=== PATIENT | female | born 1955 | race Caucasian/White ===

== ENCOUNTER 2017-02-14 08:16 | Inpatient (IN) | payer OTHER, MEDICAID ==
--- NOTE | 2017-02-14 08:29 | EDPHY ---
H & P Time Seen by Provider: 02/14/17 08:17 HPI/ROS: CHIEF COMPLAINT: Left calf pain HISTORY OF PRESENT ILLNESS: 61-year-old female, history of schizophrenia, History of osteoarthritis, arrives via ambulance complaining of left knee pain for the past several months, worse in the past 4 days worse with ambulation and movement. She was walking to [employer] this morning and the pain was severe that she attempted to sit herself down however fell onto this left pretibial and knee. She is now unable to bear weight. Denies proximal injury such as hip injury. No head injury. No hip pain or injury. No foot or ankle pain or injury. States that she is unable to bear weight. Patient was by herself. She denies: Discoloration, antecedent trauma , chest pain, dyspnea, headache, fever, chills PRIMARY CARE PROVIDER: Dr. Mine Vera REVIEW OF SYSTEMS: A ten point review of systems was performed and is negative with the exception of the items mentioned in the HPI PAST MEDICAL & SURGICAL HISTORY: Schizophrenia. SOCIAL HISTORY: lives by herself PHYSICAL EXAM (Prior to examination, patient consented to physical exam, hands were washed and my usual and customary physical exam procedures followed) 1) GENERAL: obese, , alert and oriented. Appears to be in no acute distress. 2) HEAD: Normocephalic, atraumatic 3) HEENT: Pupils equal, round, reactive to light bilaterally. Sclera anicteric. Nasopharynx, oropharynx, clear, no lesions. Ears bilaterally with normal tympanic membranes. 4) NECK: Full range of motion, no meningeal signs. 5) LUNGS: Clear auscultation bilaterally, no wheezes, no rhonchi, no retractions. 6) HEART: Regular rate and rhythm, no murmur, no heave, no gallop. 7) ABDOMEN: No guarding, no rebound, no focal tenderness, negative McBurney's, negative Nicholas's, negative Rovsing's, negative peritoneal sign, 8) MUSCULOSKELETAL: Left lower extremity: Dopplerable only dorsalis pedis pulse. Brisk capillary refill and normal color normal temperature. Tender to palpation left pretibial region proximally, reproducible pain with range of motion. Soft compartments. Left hip, femur, foot and ankle are nontender. 9) BACK: No CVA tenderness, no midline vertebral tenderness, no fluctuance, no step-off, no obvious trauma, no visual or palpable abnormality. 10) SKIN: No rash, no petechiae. 11) Psychiatric: Patient is oriented X 3, there is no agitation. DIFFERENTIAL DIAGNOSIS: in no particular include but limited to arterial occlusion, fracture, sprain, dislocation, compartment syndrome - Medical/Surgical History Hx Asthma: Yes Hx Chronic Respiratory Disease: Yes Hx Diabetes: No Hx Cardiac Disease: No Hx Renal Disease: No Hx Cirrhosis: No Hx Alcoholism: No Hx HIV/AIDS: No Hx Splenectomy or Spleen Trauma: No Other PMH: pmh- asthma, emphysema, schizophrenia. psh- tubal ligation - Social History Smoking Status: Former smoker Constitutional: Initial Vital Signs Temperature (C) 36.8 C 02/14/17 08:26 Heart Rate 89 02/14/17 08:26 Respiratory Rate 16 02/14/17 08:26 Blood Pressure 161/89 H 02/14/17 08:26 O2 Sat (%) 90 L 02/14/17 08:26 O2 Delivery Mode Room Air Allergies/Adverse Reactions: diphenhydramine HCl [From Benadryl] Allergy (Unknown, Verified 01/08/13 10:36) Penicillins Allergy (Verified 01/08/13 10:36) Home Medications: Medication Instructions Recorded Alendronate Sodium [Fosamax 35 MG] 35 mg PO FR 02/14/17 Benztropine Mesylate [Cogentin] 02/14/17 Calcium Carbonate [Tums 500MG (*)] 500 mg PO DAILY 02/14/17 Cholecalciferol Vit D3 [Vitamin D3 1,000 units PO DAILY 02/14/17 (*)] Divalproex Sodium [Depakote] 02/14/17 Docusate Sodium [Colace] 100 mg PO DAILY 02/14/17 Flovent 110 MCG Hfa MDI (*) 02/14/17 Herbals/Supplements -Info Only 1 ea PO DAILY 02/14/17 Ipratropium/Albuterol [Combivent 02/14/17 Respimat Inhal [place](*)] QUEtiapine FUMARATE [Seroquel 100 02/14/17 mg (*)] QUEtiapine FUMARATE [Seroquel 200 02/14/17 mg (*)] QUEtiapine FUMARATE [Seroquel 02/14/17 300mg (*)] Xopenex Hfa Inhaler (*) 02/14/17 fluPHENAZine HCL [Prolixin 10 MG 02/14/17 (*)] rOPINIRole HCL [Ropinirole HCl] 02/14/17 Medical Decision Making - Diagnostics Imaging Results: Imaging Impressions Knee X-Ray 02/14/17 08:30 Impression: Mildly displaced comminuted fracture of the proximal tibial metadiaphysis. Tricompartment degenerative change of the left knee. Suprapatellar joint effusion. Tibia/Fibula X-Ray 02/14/17 08:30 Impression: Mildly displaced comminuted transverse fracture through the proximal metadiaphysis of the left tibia. Chest X-Ray 02/14/17 09:04 IMPRESSION: No evidence for acute cardiopulmonary abnormality. Aorta w/Runoff CTA 02/14/17 09:33 Impression: 1. No significant atherosclerotic change or stenosis of the abdominal aorta, pelvic vasculature, or lower extremity vasculature. 2. Hepatic cyst. Renal cortical cyst inferior pole, right kidney. Degenerative change of the lumbar spine. 3. Mildly comminuted displaced fracture of the left proximal tibial metadiaphysis. Results called and discussed with Marija Villa on 02/14/2017 at 11:19 a.m. Procedures: Procedure: Fracture treatment. The patient had x-rays taken and I confirmed that the patient had a fractured proximal tibia. A long-leg posterior Ortho Glass splint was applied by ER radiography technician. After application of the splint I returned and re-examined the patient. The splint was adequately immobilizing the joint and distal to the splint the patient's circulation and sensation were intact. Patient shows no signs of compartment syndrome at this time ED Course/Re-evaluation: 9:15 a.m.: Discussed case with secondary supervising physician Dr. Jace Rodriguez in the ER was also examined the patient. 9:17 a.m.: Phone consultation with orthopedics Dr. Yassine Chery who will consult 9:30 a.m.: Dr. Chery has examined the patient in the ER will more than likely perform surgery tomorrow, requests admission to hospitalist. Phone consultation with hospitalist admit to Dr. Hensley. Serial examinations have been performed on patient remains neurovascularly intact with palpable only pulses. Plan will be splinting and CT angio follow through. - Data Points Laboratory Results: Laboratory Results 02/14/17 09:02/14/17 09:02/14/17 02/14/17 02/14/17 09: 09: 09:17 WBC 9.92 10^3/uL H 10^3/uL (3.80-9.50) RBC 4.62 10^6/uL 10^6/uL (4.18-5.33) Hgb 12.8 g/dL g/dL (12.6-16.3) Hct 37.1 % L % (38.0-47.0) MCV 80.3 fL L fL (81.5-99.8) MCH 27.7 pg L pg (27.9-34.1) MCHC 34.5 g/dL g/dL (32.4-36.7) RDW 16.4 % H % (11.5-15.2) Plt Count 310 10^3/uL 10^3/uL (150-400) MPV 9.1 fL fL (8.7-11.7) Neut % (Auto) 69.0 % % (39.3-74.2) Lymph % (Auto) 17.1 % % (15.0-45.0) [place] % (Auto) 12.1 % % (4.5-13.0) Eos % (Auto) 1.0 % % (0.6-7.6) Baso % (Auto) 0.4 % % (0.3-1.7) Nucleat RBC Rel Count 0.0 % % (0.0-0.2) Absolute Neuts (auto) 6.84 10^3/uL H 10^3/uL (1.70-6.50) Absolute Lymphs (auto) 1.70 10^3/uL 10^3/uL (1.00-3.00) Absolute Monos (auto) 1.20 10^3/uL H 10^3/uL (0.30-0.80) Absolute Eos (auto) 0.10 10^3/uL 10^3/uL (0.03-0.40) Absolute Basos (auto) 0.04 10^3/uL 10^3/uL (0.02-0.10) Absolute Nucleated RBC 0.00 10^3/uL 10^3/uL (0-0.01) Immature Gran % 0.4 % % (0.0-1.1) Immature Gran # 0.04 10^3/uL 10^3/uL (0.00-0.10) PT 13.5 SEC SEC (12.0-15.0) INR 1.04 (0.83-1.16) APTT 29.0 SEC SEC (23.0-38.0) Sodium 131 mEq/L L mEq/L (134-144) Potassium 4.1 mEq/L mEq/L (3.5-5.2) Chloride 94 mEq/L L mEq/L (97-110) Carbon Dioxide 24 mEq/l mEq/l (22-31) Anion Gap 13 mEq/L mEq/L (8-16) BUN 9 mg/dL mg/dL (7-23) Creatinine 0.4 mg/dL L mg/dL (0.6-1.0) Estimated GFR > 60 Glucose 107 mg/dL H mg/dL (70-100) Calcium 9.5 mg/dL mg/dL (8.5-10.4) Medications Given: Discontinued Medications Fentanyl (Sublimaze) 100 mcg IVP EDNOW ONE Stop: 02/14/17 09:53 Last Admin: 02/14/17 10:04 Dose: 100 mcg Ketorolac Tromethamine (Toradol) 30 mg IVP EDNOW ONE Stop: 02/14/17 09:53 Last Admin: 02/14/17 10:03 Dose: 30 mg Departure - Departure Disposition: [facility] Inpatient Acute Clinical Impression: Closed left tibial fracture Qualifiers: Encounter type: initial encounter Tibia location: proximal Fracture morphology : other fracture Qualified Code(s): S82.192A - Other fracture of upper end of left tibia, initial encounter for closed fracture Condition: Good
[2017-02-14 09:24] LABS: % IMMATURE GRANULYOCYTES 0.4 % (0.0-1.1); ABSOLUTE IMMATURE GRANULOCYTES 0.04 10^3/uL (0.00-0.10); ADD DIFF? NO; ADD MORPH? NO; ADD SCAN? NO; ATYPICAL LYMPHOCYTE FLAG 0 (0-99); FRAGMENT RBC FLAG 0 (0-99); HEMATOCRIT 37.1 % (38.0-47.0); HEMOGLOBIN 12.8 g/dL (12.6-16.3); LEFT SHIFT FLG 0 (0-99); LIPEMIA HEMOLYSIS FLAG 90 (0-99); MEAN CELL HEMOGLOBIN 27.7 pg (27.9-34.1); MEAN CELL HEMOGLOBIN CONCENTR. 34.5 g/dL (32.4-36.7); MEAN CELL VOLUME 80.3 fL (81.5-99.8); MEAN PLATELET VOLUME 9.1 fL (8.7-11.7); PLATELET CLUMPS FLAG 0 (0-99); PLATELET COUNT 310 10^3/uL (150-400); RED BLOOD CELL COUNT 4.62 10^6/uL (4.18-5.33); RED CELL DISTRIBUTION WIDTH 16.4 % (11.5-15.2)
[2017-02-14 09:34] LABS: INR 1.04 (0.83-1.16); PROTIME(PATIENT) 13.5 SEC (12.0-15.0)
[2017-02-14 09:38] LABS: ANION GAP 13 mEq/L (8-16); CALCIUM 9.5 mg/dL (8.5-10.4); CARBON DIOXIDE 24 mEq/l (22-31); CHLORIDE 94 mEq/L (97-110); CREATININE 0.4 mg/dL (0.6-1.0); GLOMERULAR FILTRATION RATE > 60; GLUCOSE 107 mg/dL (70-100); POTASSIUM 4.1 mEq/L (3.5-5.2); SODIUM 131 mEq/L (134-144)
--- NOTE | 2017-02-14 09:38 | CPEKG ---
Heart Rate: 104 RR Interval: 577 P-R Interval: 204 QRSD Interval: 86 QT Interval: 336 QTC Interval: 442 P [place]: 56 QRS [place]: 43 T Wave [place]: -35 EKG Severity - OTHERWISE NORMAL ECG - EKG Impression: SINUS TACHYCARDIA Electronically Signed By: Reinaldo Belle 16-Feb-2017 15:33:42
[2017-02-14] MEDS ORDERED: fentaNYL 100 MCG/2 ML INJ IVP ONE (09:52)
[2017-02-14] MEDS ORDERED: KETOROLAC 30 MG/1 ML SDV IVP ONE (09:52)
[2017-02-14] MEDS ORDERED: IOPAMIDOL (ISOVUE 370) 100 ML BTL IV ONE (10:01)
[2017-02-14] MEDS ORDERED: ONDANSETRON 4 MG/2 ML VIAL IVP PRN (11:25)
[2017-02-14] MEDS ORDERED: HYDROmorphONE/DILAUDID 1 MG/ML SYR IVP PRN (11:25)
[2017-02-14] MEDS ORDERED: LORazepam 2 MG/ML INJ IVP PRN (11:25)
[2017-02-14] MEDS ORDERED: ONDANSETRON DISINTEGRATING 4 MG TAB PO PRN (11:25)
[2017-02-14] MEDS ORDERED: PROMETHAZINE HCL 25 MG/ML INJ IVP PRN (11:25)
[2017-02-14] MEDS ORDERED: ALBUTEROL 3 ML DEYVIAL IH PRN (11:29)
--- NOTE | 2017-02-14 11:51 | PDGENHP ---
History and Physical - Chief Complaint fall, left knee pain - History of Present Illness 61 yo F with PMH of COPD, schizophrenia with significant extrapyramidal sxs related to her psychiatric medications presenting after a mechanical fall with resultant left tibial fracture. She notes that she was walking a long distance to [place] when she felt as if her leg was buckling and she fell to the cement. She was unable to get up but flagged down a jogger who went for help. She had no other injuries, specifically no head or neck trauma. There was no preceding sxs before falling, no syncope, dizzyness, chest pain etc. She has had issues with falls in the past. She notes that due to her psychiatric medications she has issues with tremulousness that affects her whole body including her tongue. She has a cane but usually does not use it. History Information - Allergies/Home Medication List Allergies/Adverse Reactions: diphenhydramine HCl [From Benadryl] Allergy (Unknown, Verified 01/08/13 10:36) Penicillins Allergy (Verified 01/08/13 10:36) Home Medications: Alendronate Sodium [Fosamax 35 MG] 35 mg PO FR 02/14/17 [Last Taken Unknown] Benztropine Mesylate [Cogentin] 02/14/17 [Last Taken Unknown] Calcium Carbonate [Tums 500MG (*)] 500 mg PO DAILY 02/14/17 [Last Taken Unknown] Cholecalciferol Vit D3 [Vitamin D3 (*)] 1,000 units PO DAILY 02/14/17 [Last Taken Unknown] Divalproex Sodium [Depakote] 02/14/17 [Last Taken Unknown] Docusate Sodium [Colace] 100 mg PO DAILY 02/14/17 [Last Taken Unknown] Flovent 110 MCG Hfa MDI (*) 02/14/17 [Last Taken Unknown] Herbals/Supplements -Info Only 1 ea PO DAILY 02/14/17 [Last Taken Unknown] Ipratropium/Albuterol [Combivent Respimat Inhal [place](*)] 02/14/17 [Last Taken Unknown] QUEtiapine FUMARATE [Seroquel 100 mg (*)] 02/14/17 [Last Taken Unknown] QUEtiapine FUMARATE [Seroquel 200 mg (*)] 02/14/17 [Last Taken Unknown] QUEtiapine FUMARATE [Seroquel 300mg (*)] 02/14/17 [Last Taken Unknown] Xopenex Hfa Inhaler (*) 02/14/17 [Last Taken Unknown] fluPHENAZine HCL [Prolixin 10 MG (*)] 02/14/17 [Last Taken Unknown] rOPINIRole HCL [Ropinirole HCl] 02/14/17 [Last Taken Unknown] I have personally reviewed and updated: family history, medical history, social history, surgical history - Past Medical History asthma, COPD, psychiatric history (schizophrenia) - Surgical History Additional surgical history: tubal ligation - Family History Positive for: non-pertinent - Social History Smoking Status: Former smoker Alcohol Use: None Drug Use: None Additional social history: lives independently Review of Systems ROS: 10pt was reviewed & negative except for what was stated in HPI & below Physical Exam Temp Pulse Resp BP Pulse Ox 36.6 C 104 H 18 146/81 H 97 02/14/17 11:22 02/14/17 11:22 02/14/17 11:22 02/14/17 11:22 02/14/17 11:22 Constitutional: no apparent distress, appears nourished Eyes: PERRL Ears, Nose, Mouth, Throat: moist mucous membranes, hearing normal Cardiovascular: regular rate and rhythym, no murmur, rub, or gallop, No edema Respiratory: no respiratory distress, no rales or rhonchi, clear to auscultation Gastrointestinal: normoactive bowel sounds, soft, non-tender abdomen Genitourinary: no bladder tenderness Skin: warm, normal color Musculoskeletal: full muscle strength Neurologic: AAOx3, CN II-XII Intact, other (diffuse tremor) Psychiatric: interacting appropriately, not anxious, not encephalopathic Lab Data & Imaging Review 02/14/17 09:17 02/14/17 09:17 WBC 9.92 10^3/uL (3.80-9.50) H 02/14/17 09:17 RBC 4.62 10^6/uL (4.18-5.33) 02/14/17 09:17 Hgb 12.8 g/dL (12.6-16.3) 02/14/17 09:17 Hct 37.1 % (38.0-47.0) L 02/14/17 09:17 MCV 80.3 fL (81.5-99.8) L 02/14/17 09:17 MCH 27.7 pg (27.9-34.1) L 02/14/17 09:17 MCHC 34.5 g/dL (32.4-36.7) 02/14/17 09:17 RDW 16.4 % (11.5-15.2) H 02/14/17 09:17 Plt Count 310 10^3/uL (150-400) 02/14/17 09: MPV 9.1 fL (8.7-11.7) 02/14/17 09:17 Neut % (Auto) 69.0 % (39.3-74.2) 02/14/17 09: Lymph % (Auto) 17.1 % (15.0-45.0) 02/14/17: [place] % (Auto) 12.1 % (4.5-13.0) 02/14/17 09:17 Eos % (Auto) 1.0 % (0.6-7.6) 02/14/17: Baso % (Auto) 0.4 % (0.3-1.7) 02/14/17 09:17 Nucleat RBC Rel Count 0.0 % (0.0-0.2) 02/14/17 09:17 Absolute Neuts (auto) 6.84 10^3/uL (1.70-6.50) H 02/14/17 09:17 Absolute Lymphs (auto) 1.70 10^3/uL (1.00-3.00) 02/14/17 09:17 Absolute Monos (auto) 1.20 10^3/uL (0.30-0.80) H 02/14/17 09:17 Absolute Eos (auto) 0.10 10^3/uL (0.03-0.40) 02/14/17 09:17 Absolute Basos (auto) 0.04 10^3/uL (0.02-0.10) 02/14/17 09:17 Absolute Nucleated RBC 0.00 10^3/uL (0-0.01) 02/14/17 09:17 Immature Gran % 0.4 % (0.0-1.1) 02/14/17 09:17 Immature Gran # 0.04 10^3/uL (0.00-0.10) 02/14/17 09:17 PT 13.5 SEC (12.0-15.0) 02/14/17 09:17 INR 1.04 (0.83-1.16) 02/14/17 09:17 APTT 29.0 SEC (23.0-38.0) 02/14/17 09:17 Sodium 131 mEq/L (134-144) L 02/14/17 09:17 Potassium 4.1 mEq/L (3.5-5.2) 02/14/17 09:17 Chloride 94 mEq/L (97-110) L 02/14/17 09:17 Carbon Dioxide 24 mEq/l (22-31) 02/14/17 09:17 Anion Gap 13 mEq/L (8-16) 02/14/17 09:17 BUN 9 mg/dL (7-23) 02/14/17 09:17 Creatinine 0.4 mg/dL (0.6-1.0) L 02/14/17 09:17 Estimated GFR > 60 02/14/17 09:17 Glucose 107 mg/dL (70-100) H 02/14/17 09:17 Calcium 9.5 mg/dL (8.5-10.4) 02/14/17 09:17 Visualized and Interpreted Chest x-ray results: Yes Chest X-Ray results: normal Visualized and Interpreted imaging results: Yes Interpretation: comminuted displaced proximal tibial fracture Visualized and Interpreted EKG results: Yes EKG Interpretation: Positive for: normal sinsus rhythm, other (tachy) Assessment & Plan Assessment: 61 yo F with PMH of COPD, schizophrenia admitted s/p mechanical fall with displaced proximal tibial fracture # left displaced proximal tibial fracture: with plan for surgical intervention in am. Patient appears neurovascularly intact with pulses present, CTA aorta with runoff without significant abnormalities. # mechanical fall: patient with issues with fall in the past as well, she has what sounds like both EPS and Parkinsonian like sxs related to her psychiatric medications. Will have PT/OT evaluate, may require SNF post operatively given her baseline somewhat debilitated state # copd: with e/o acute exacerbation, will continue her usual inhalers # schizophrenia: well controlled though with many side effects from her medications as above, will continue her home regimen, she is followed by [facility] as an OP # dispo: IP status, will need > 48 hours stay for eval/mgmt of above given need for surgical intervention and inability to be safe at home Patient new to my care. Old records reviewed and summarized as above. Care plan reviewed with ER including plans for ortho consult.
[2017-02-14] MEDS: IPRATROPIUM/ALBUTEROL 4GM MDI IH SCH ×2 (17:46→21:02)
[2017-02-14] MEDS: ACETAMINOPHEN 325 MG TAB PO PRN (21:00)
[2017-02-14] MEDS: oxyCODONE IR 5 MG TAB PO PRN (21:00)
[2017-02-14] MEDS ORDERED: CLINDAMYCIN 900 MG/DEXTROSE 50 ML IV ONE (21:35)
--- NOTE | 2017-02-14 23:03 | GCON ---
[f rep st] CONSULTATION ORTHOPEDIC. DATE OF CONSULTATION: 02/14/2017 REASON FOR CONSULTATION: Left tibia fracture. HISTORY OF PRESENT ILLNESS: The patient is a 61-year-old female with a history of schizophrenia and COPD, who was walking to [employer] this morning, fell, sustained a proximal tibia fracture. She state s her knee had been hurting for several days before that and felt like it gave out. Denies any loss of consciousness. No other injuries prior. PAST MEDICAL HISTORY: Schizophrenia, COPD. PAST SURGICAL HISTORY: Tubal ligation. MEDICATIONS: Please see attached list. ALLERGIES: Penicillin. SOCIAL HISTORY: She lives alone. From her description, she has been having some increasing difficu lty caring for herself. She does not smoke, does not use alcohol. REVIEW OF SYSTEMS: No shortness of breath or chest pain. PHYSICAL EXAMINATION: VITAL SIGNS: Temperature is 36.6, pulse is 104, respiratory rate is 18, bloo d pressure is 146/81, oxygen saturation 97% on room air. GENERAL: She is alert and oriented x3. S he answers questions appropriately. HEENT: Normocephalic atraumatic. Extraocular muscles intact. NECK: Supple. There is no lymphadenopathy. No JVD. CHEST: Clear to auscultation. CARDIOVASCUL AR: Regular rate and rhythm. ABDOMEN: Soft, nontender, nondistended. Slightly obese. No hepatos plenomegaly. LEFT LOWER EXTREMITY: Compartments are soft. There is no obvious deformity. She has palpable pulses. She had a CTA today done in the ER because of that and found no occlusion of thos e pulses. She has 5/5 ankle dorsiflexion, plantar flexion, strength. IMAGING/X-RAYS: Four views of the tibia show a minimally displaced proximal tibial fracture. PLAN: Long discussion with the patient. I think the best course of action would be to try and sayda t this with an intramedullary nail. It is a proximal fracture, but I think we could get control of it with that with minimal surgical time, which I think would be of benefit to her. She is in [facility] with this plan. She has eaten this morning, so we will plan on surgery tomorrow morning mid mor bronson. Will make her n.p.o. after midnight. Risks and benefits of surgery were discussed with her. She understands these risks and wants to proceed. We will get her admitted to the medicine service today. /[id number]/MODL
[2017-02-15] MEDS: oxyCODONE IR 5 MG TAB PO PRN ×3 (03:47→17:38)
[2017-02-15] MEDS ORDERED: CLINDAMYCIN 900 MG/DEXTROSE 50 ML IV ONE (06:00)
[2017-02-15] MEDS: IPRATROPIUM/ALBUTEROL 4GM MDI IH SCH ×4 (06:29→19:48)
[2017-02-15] MEDS ORDERED: NS 1,000 ML IV SCH (08:30)
[2017-02-15] MEDS: DOCUSATE SODIUM 100 MG CAP PO SCH (09:09)
[2017-02-15] MEDS: CALCIUM CARBONATE 500 MG CHEWABLE TAB PO SCH (09:09)
[2017-02-15] MEDS: QUEtiapine FUMARATE 200 MG TAB PO SCH (10:45)
[2017-02-15] MEDS: BENZTROPINE MESYLATE 1 MG TAB PO SCH ×2 (10:45→20:41)
[2017-02-15] MEDS ORDERED: BUPIVACAINE/EPI 0.5% 30 ML SDV ONE (11:20)
[2017-02-15] MEDS ORDERED: BACITRACIN 50,000 UNITS/10 ML SYR IRR ONE (11:20)
[2017-02-15] MEDS ORDERED: POLYMYXIN B SULFATE 500,000 UNIT/10 ML SYR IRR ONE (11:21)
[2017-02-15] MEDS: FLUTICASONE HFA 110 MCG MDI IH SCH ×2 (11:33→19:47)
[2017-02-15] MEDS ORDERED: LR 1,000 ML IV ONE (11:36)
[2017-02-15] MEDS ORDERED: CLINDAMYCIN 900 MG/DEXTROSE/50 ML BAG IV ONE (11:57)
--- NOTE | 2017-02-15 12:24 | PDANEPAE ---
ANE History of Present Illness left tibia fracture ANE Past Medical History - Pulmonary History Hx Oxygen in Use at Home: No Hx Sleep Apnea: Yes Sleep Apnea Screening Result - Last Documented: Negative - Endocrine History Hx Diabetes: No - Chronic Pain History Chronic Pain: No ANE Review of Systems - Exercise capacity METS (RN): 2 METS ANE Patient History - Allergies Allergies/Adverse Reactions: diphenhydramine HCl [From Benadryl] Allergy (Unknown, Verified 01/08/13 10:36) Penicillins Allergy (Verified 01/08/13 10:36) - Home Medications Home Medications: Alendronate Sodium [Fosamax 35 MG] 35 mg PO FR 02/14/17 [Last Taken Unknown] Benztropine Mesylate [Cogentin] 1 mg PO BID 02/14/17 [Last Taken Unknown] Calcium Carbonate [Tums 500MG (*)] 500 mg PO DAILY 02/14/17 [Last Taken Unknown] Cholecalciferol Vit D3 [Vitamin D3 (*)] 1,000 units PO DAILY 02/14/17 [Last Taken Unknown] Docusate Sodium [Colace] 100 mg PO DAILY 02/14/17 [Last Taken Unknown] Flovent 110 MCG Hfa MDI (*) 1 puffs IH BID 02/14/17 [Last Taken Unknown] Herbals/Supplements -Info Only 1 ea PO DAILY 02/14/17 [Last Taken Unknown] Ipratropium/Albuterol [Combivent Respimat Inhal [place](*)] 1 puffs IH QID [Last Taken Unknown] Levalbuterol Inhaler [Xopenex Hfa Inhaler (*)] 2 puffs IH Q4 02/14/17 [Last Taken Unknown] QUEtiapine FUMARATE [Seroquel 100 mg (*)] 100 mg PO HS 02/14/17 [Last Taken Unknown] QUEtiapine FUMARATE [Seroquel 200 mg (*)] 400 mg PO DAILY 02/14/17 [Last Taken Unknown] QUEtiapine FUMARATE [Seroquel 300mg (*)] 600 mg PO HS 02/14/17 [Last Taken Unknown] fluPHENAZine HCL [Prolixin 10 MG (*)] 30 mg PO HS 02/14/17 [Last Taken Unknown] Divalproex Sodium [Depakote] 1,000 mg PO HS 02/15/17 [Last Taken Unknown] rOPINIRole HCL [Requip 2mg (*)] 2 mg PO HS 02/15/17 [Last Taken Unknown] - NPO status NPO Since - Liquids (Date): 02/14/17 NPO Since - Liquids (Time): 18:00 NPO Since - Solids (Date): 02/14/17 NPO Since - Solids (Time): 18:00 - Smoking Hx Smoking Status: Former smoker - Alcohol Use Alcohol Use: None ANE Labs/Vital Signs - Labs Result Diagrams: 02/14/17 09:17 02/14/17 09:17 - Vital Signs Blood Pressure: 131/56 Heart Rate: 95 Respiratory Rate: 16 O2 Sat (%): 95 Height: 170.18 cm Weight: 96.162 kg ANE Physical Exam - Airway Neck exam: FROM Mallampati Score: Class 2 Mouth exam: normal dental/mouth exam - Pulmonary Pulmonary: no respiratory distress - Cardiovascular Cardiovascular: regular rate and rhythym - ASA Status ASA Status: II ANE Anesthesia Plan Anesthesia Plan: general endotracheal anesthesia
[2017-02-15] MEDS ORDERED: HYDROmorphONE/DILAUDID 2 MG/ML INJ ONE (12:27)
[2017-02-15] MEDS ORDERED: PROPOFOL 200 MG/20 ML VIAL ONE (12:27)
[2017-02-15] MEDS ORDERED: fentaNYL 100 MCG/2 ML INJ ONE (12:27)
[2017-02-15] MEDS ORDERED: LEVALBUTEROL INHALER 200 PUFFS/15 GM MDI IH SCH (14:00)
--- NOTE | 2017-02-15 14:36 | HOSPPROG ---
Hospitalist Progress Note Assessment/Plan: 61 yo F with PMH of COPD, schizophrenia admitted s/p mechanical fall with displaced proximal tibial fracture # left displaced proximal tibial fracture: with plan for surgical intervention today. Patient appears neurovascularly intact with pulses present, CTA aorta with runoff without significant abnormalities. Pain has been controlled. # mechanical fall: patient with issues with fall in the past as well, she has what sounds like both EPS and Parkinsonian like sxs related to her psychiatric medications. Will have PT/OT evaluate, may require SNF post operatively given her baseline somewhat debilitated state # copd: with e/o acute exacerbation, will continue her usual inhalers # schizophrenia: well controlled though with many side effects from her medications as above, will continue her home regimen, she is followed by [facility] as an OP # dispo: IP status, will need > 48 hours stay for eval/mgmt of above given need for surgical intervention and inability to be safe at home Subjective: no significant overnight events, patient seen on the way to OR, she is anxious but ok otherwise Objective: Vital Signs Temp Pulse Resp BP Pulse Ox 36.9 C 95 16 131/56 H 95 02/15/17 11:39 02/15/17 12:24 02/15/17 12:24 02/15/17 12:24 02/15/17 12:24 02/14/17 02/15/17 02/16/17 05:59 05:59 05:59 Intake Total 300 Output Total 2950 650 Balance -2650 -650 PT 13.5 SEC (12.0-15.0) 02/14/17 09:17 INR 1.04 (0.83-1.16) 02/14/17 09:17 awake alert nad anicteric oriented appropriate rrr no mrg ICD10 Worksheet Patient Problems: Problems Problem Status Onset Closed left tibial fracture Acute
--- NOTE | 2017-02-15 14:50 | SOAPPROG ---
WARNER Progress Note Assessment/Plan: Assessment: Plan: 02/15/17 14:48 Surgery cancelled for Today OR did not have the appropriate equiptment to complete the case. Will work to reschedule for tomorrow Objective: Vital Signs Temp Pulse Resp BP Pulse Ox 36.9 C 95 16 131/56 H 95 02/15/17 11:39 02/15/17 12:24 02/15/17 12:24 02/15/17 12:24 02/15/17 12:24 02/14/17 02/15/17 02/16/17 05:59 05:59 05:59 Intake Total 300 Output Total 2950 650 Balance -2650 -650 PT 13.5 SEC (12.0-15.0) 02/14/17 09:17 INR 1.04 (0.83-1.16) 02/14/17 09:17 ICD10 Worksheet Patient Problems: Problems Problem Status Onset Closed left tibial fracture Acute
[2017-02-15] MEDS: ACETAMINOPHEN 325 MG TAB PO PRN (17:37)
[2017-02-15] MEDS: DIVALPROEX NA 500 MG TAB PO SCH (20:39)
[2017-02-15] MEDS: QUEtiapine FUMARATE 300 MG TAB PO SCH (20:40)
[2017-02-15] MEDS: QUEtiapine FUMARATE 100 MG TAB PO SCH (20:40)
[2017-02-16] MEDS ORDERED: BUPIVACAINE/EPI 0.5% 30 ML SDV ONE (05:37)
[2017-02-16] MEDS ORDERED: BACITRACIN 50,000 UNITS/10 ML SYR IRR ONE (05:38)
[2017-02-16] MEDS ORDERED: POLYMYXIN B SULFATE 500,000 UNIT/10 ML SYR IRR ONE (05:38)
[2017-02-16] MEDS ORDERED: CLINDAMYCIN 900 MG/DEXTROSE/50 ML BAG IV ONE (05:46)
[2017-02-16] MEDS ORDERED: CLINDAMYCIN 900 MG/DEXTROSE 50 ML IV ONE (05:46)
[2017-02-16] MEDS ORDERED: ALBUTEROL 3 ML DEYVIAL IH ONE (05:49)
--- NOTE | 2017-02-16 05:50 | PDANEPAE ---
ANE History of Present Illness 61 yo F w broken tibia, here for ORIF ANE Past Medical History - Cardiovascular History Hx Hypertension: No Hx Arrhythmias: No Hx Chest Pain: No - Pulmonary History Hx COPD: Yes Hx Asthma/Reactive Airway Disease: Yes Hx Oxygen in Use at Home: No Hx Sleep Apnea: Yes Sleep Apnea Screening Result - Last Documented: Negative - Endocrine History Hx Diabetes: No - Chronic Pain History Chronic Pain: No ANE Review of Systems - Exercise capacity Exercise capacity: >=4 METS - Systems Neurological: Reports: other (schizophrenia) ANE Patient History - Allergies Allergies/Adverse Reactions: diphenhydramine HCl [From Benadryl] Allergy (Unknown, Verified 01/08/13 10:36) Penicillins Allergy (Verified 01/08/13 10:36) - Home Medications Home Medications: Alendronate Sodium [Fosamax 35 MG] 35 mg PO FR 02/14/17 [Last Taken Unknown] Benztropine Mesylate [Cogentin] 1 mg PO BID 02/14/17 [Last Taken Unknown] Calcium Carbonate [Tums 500MG (*)] 500 mg PO DAILY 02/14/17 [Last Taken Unknown] Cholecalciferol Vit D3 [Vitamin D3 (*)] 1,000 units PO DAILY 02/14/17 [Last Taken Unknown] Docusate Sodium [Colace] 100 mg PO DAILY 02/14/17 [Last Taken Unknown] Flovent 110 MCG Hfa MDI (*) 1 puffs IH BID 02/14/17 [Last Taken Unknown] Herbals/Supplements -Info Only 1 ea PO DAILY 02/14/17 [Last Taken Unknown] Ipratropium/Albuterol [Combivent Respimat Inhal [place](*)] 1 puffs IH QID [Last Taken Unknown] Levalbuterol Inhaler [Xopenex Hfa Inhaler (*)] 2 puffs IH Q4 02/14/17 [Last Taken Unknown] QUEtiapine FUMARATE [Seroquel 100 mg (*)] 100 mg PO HS 02/14/17 [Last Taken Unknown] QUEtiapine FUMARATE [Seroquel 200 mg (*)] 400 mg PO DAILY 02/14/17 [Last Taken Unknown] QUEtiapine FUMARATE [Seroquel 300mg (*)] 600 mg PO HS 02/14/17 [Last Taken Unknown] fluPHENAZine HCL [Prolixin 10 MG (*)] 30 mg PO HS 02/14/17 [Last Taken Unknown] Divalproex Sodium [Depakote] 1,000 mg PO HS 02/15/17 [Last Taken Unknown] rOPINIRole HCL [Requip 2mg (*)] 2 mg PO HS 02/15/17 [Last Taken Unknown] - NPO status NPO Status: no food or drink >8 hours NPO Since - Liquids (Date): 02/16/17 NPO Since - Liquids (Time): 00:00 NPO Since - Solids (Date): 02/15/17 NPO Since - Solids (Time): 18:00 - Anes Hx Anes Hx: no prior problems - Smoking Hx Smoking Status: Former smoker - Alcohol Use Alcohol Use: None - Family Anes Hx Family Anes Hx: none ANE Labs/Vital Signs - Labs Result Diagrams: 02/14/17 09:17 02/14/17 09:17 - Vital Signs Blood Pressure: 117/64 Heart Rate: 95 Respiratory Rate: 14 O2 Sat (%): 96 Height: 170.18 cm Weight: 96.162 kg ANE Physical Exam - Airway Neck exam: FROM Mallampati Score: Class 2 Mouth exam: poor dentition Mouth image: 1 - chipped 2 - chipped - Pulmonary Pulmonary: expiratory wheeze - Cardiovascular Cardiovascular: regular rate and rhythym - ASA Status ASA Status: III ANE Anesthesia Plan Anesthesia Plan: general endotracheal anesthesia
[2017-02-16] MEDS ORDERED: MIDAZOLAM 2 MG/2 ML VIAL IVP ONE (05:52)
[2017-02-16] MEDS ORDERED: LIDOCAINE 2% 5 ML SDV ONE (05:58)
[2017-02-16] MEDS ORDERED: fentaNYL 100 MCG/2 ML INJ ONE (05:58)
[2017-02-16] MEDS ORDERED: ROCURONIUM 50 MG/5 ML VIAL ONE (05:58)
[2017-02-16] MEDS ORDERED: PROPOFOL 200 MG/20 ML VIAL ONE ×2 (05:58)
[2017-02-16] MEDS ORDERED: DEXAMETHASONE 4 MG/ML VIAL ONE (06:48)
[2017-02-16] MEDS ORDERED: ONDANSETRON 4 MG/2 ML VIAL ONE (06:49)
[2017-02-16] MEDS ORDERED: HYDROmorphONE/DILAUDID 2 MG/ML INJ ONE (07:17)
[2017-02-16] MEDS ORDERED: SUGAMMADEX SODIUM 200 MG/2 ML VIAL IVP ONE (07:28)
--- NOTE | 2017-02-16 07:51 | POSTOPPROG ---
Post Op Note Date of Operation: 02/16/17 Surgeon: Yassine Chery Compensation Coordinator: estrellita Anesthesiologist: Corin Anesthesia: GET(General Endotracheal) Pre-op Diagnosis: Lt tibia fracture closed Post-op Diagnosis: same Procedure: IMN lt tibia Inf/Abcess present in the surg proc area at time of surgery?: No Complications: none
--- NOTE | 2017-02-16 07:55 | POSTANESTH ---
Post Anesthetic Evaluation Cardiovascular Status: Normal, Stable, Similar to Pre-Op Cond Respiratory Status: Normal, Stable, Similar to Pre-op Cond. Level of Consciousness/Mental Status: Moderately Sleepy Pain Control: Adequate, Prn Tx Ordered Nausea/Vomiting Control: Adequate, Prn Tx Ordered Complications Possibly Related to Anesthesia: None Noted
[2017-02-16] MEDS ORDERED: LR 1,000 ML IV SCH (08:00)
--- NOTE | 2017-02-16 08:23 | GOP ---
[f rep st] OPERATIVE REPORT DATE OF OPERATION: 02/16/2017 SURGEON: Yassine Chery MD NATIONAL SALES DIRECTOR: Ralph Estes, [employer], [facility] ANESTHESIA: General. ANESTHESIOLOGIST: Dr. Coombs PREOPERATIVE DIAGNOSIS: Left proximal tibia fracture. POSTOPERATIVE DIAGNOSIS: Left proximal tibia fracture. PROCEDURE PERFORMED: Left tibial intramedullary nail. FINDINGS: INDICATIONS: The patient is a 61-year-old female, who tripped and fell and sustained a proximal tib ia fracture on Wednesday. She was admitted to the hospital. [facility]. DESCRIPTION OF PROCEDURE: After appropriate informed consent was obtained, the patient was taken to the operating room, placed supine on the operating table. Time-out was performed. Patient was dario ntified. Correct site was identified, matched with radiographs available in the room. Following th e induction of general endotracheal tube anesthesia, she received 900 mg of clindamycin IV due to a penicillin allergy. Left lower extremity was prepped and draped in the usual sterile fashion. Exsa nguinated the limb, inflated the tourniquet to 250 mmHg. I made a standard incision just inferior a nd medial to the patellar tendon. Soft tissues were carefully dissected. The patellar tendon was p rotected. We obtained our starting point, drilled our guidewire, and confirmed its position with AP and lateral fluoroscopic images. Using our entry reamer, we entered the femoral canal. Then we pa ssed a ball-tip guidewire all the way to the distal end of the tibia. We then began reaming up and reamed up to a size 12, measured a 345 mm nail, placed it on the jig, and tapped it into place. The re was some gapping of the fracture so I locked distally with 1 locking screw using perfect-benton t echnique, a back slapped the nail to compress the fracture, and then placed 2 more locking screws us ing the external jig proximally. The instrumentation was removed. Final imaging was obtained which showed satisfactory reduction of fracture and alignment of the hardware. The wounds were irrigated . Deep layers closed with 0 and 2-0 Vicryl. Superficial layer was closed with adan. I instille d 25 mL 5% Marcaine with epinephrine around the incisions. A soft sterile dressing was applied. Salvador fernandez was awakened from anesthesia, taken to recovery room in satisfactory condition. There were no immediate intraoperative complications. Dom Estes's assistance was required throughout the entire case. TOTAL TOURNIQUET TIME: 59 minutes at 250 mmHg. COMPLICATIONS: None. DRAINS: None. IMPLANTS USED: A Synthes tibial nail, size 11 x 345. /[id number]/MODL
[2017-02-16] MEDS: IPRATROPIUM/ALBUTEROL 4GM MDI IH SCH ×3 (08:58→20:04)
[2017-02-16] MEDS: FLUTICASONE HFA 110 MCG MDI IH SCH ×3 (08:58→20:04)
[2017-02-16] MEDS: KETOROLAC 30 MG/1 ML SDV IVP PRN ×2 (09:13→17:01)
[2017-02-16] MEDS: QUEtiapine FUMARATE 200 MG TAB PO SCH (09:13)
[2017-02-16] MEDS: DOCUSATE SODIUM 100 MG CAP PO SCH (09:13)
[2017-02-16] MEDS: CALCIUM CARBONATE 500 MG CHEWABLE TAB PO SCH (09:14)
[2017-02-16] MEDS: BENZTROPINE MESYLATE 1 MG TAB PO SCH ×2 (09:14→20:58)
[2017-02-16] MEDS: LEVALBUTEROL INHALER 200 PUFFS/15 GM MDI IH SCH (11:57)
[2017-02-16] MEDS: CLINDAMYCIN 900 MG/DEXTROSE 50 ML IV SCH ×2 (14:38→21:45)
--- NOTE | 2017-02-16 14:49 | HOSPPROG ---
Hospitalist Progress Note Assessment/Plan: 61 yo F with PMH of COPD, schizophrenia admitted s/p mechanical fall with displaced proximal tibial fracture # left displaced proximal tibial fracture: now s/p surgical surgical fixation, post op xray personally reviewed and alignment appears normal. Pain is well controlled. will need pt/ot going forward. # mechanical fall: patient with issues with fall in the past as well, she has what sounds like both EPS and Parkinsonian like sxs related to her psychiatric medications. PT/OT to evaluate, suspect she will require snf. # copd: with e/o acute exacerbation, will continue her usual inhalers # schizophrenia: well controlled though with many side effects from her medications as above, will continue her home regimen, she is followed by [facility] as an OP # dispo: IP status, will need > 48 hours stay for eval/mgmt of above Subjective: no significant overnight events, patient is currently feeling well but states she is afraid to stand on her leg Objective: Vital Signs Temp Pulse Resp BP Pulse Ox 36.4 C 108 H 16 116/69 94 02/16/17 12:00 02/16/17 12:00 02/16/17 12:00 02/16/17 12:00 02/16/17 12:00 02/15/17 02/16/17 02/17/17 05:59 05:59 05:59 Intake Total 300 500 650 Output Total 2950 650 25 Balance -2650 -150 625 PT 13.5 SEC (12.0-15.0) 02/14/17 09:17 INR 1.04 (0.83-1.16) 02/14/17 09:17 awake alert nad anicteric rrr no mrg cta b soft nt nd lle bandaged warm dry well perfused oriented appropriate ICD10 Worksheet Patient Problems: Problems Problem Status Onset Closed left tibial fracture Acute
[2017-02-16] MEDS: QUEtiapine FUMARATE 300 MG TAB PO SCH (20:59)
[2017-02-16] MEDS: QUEtiapine FUMARATE 100 MG TAB PO SCH (20:59)
[2017-02-16] MEDS: DIVALPROEX NA 500 MG TAB PO SCH (20:59)
[2017-02-16] MEDS: oxyCODONE IR 5 MG TAB PO PRN (22:59)
[2017-02-17] MEDS: oxyCODONE IR 5 MG TAB PO PRN ×4 (05:09→21:16)
[2017-02-17] MEDS: KETOROLAC 30 MG/1 ML SDV IVP PRN (05:09)
[2017-02-17] MEDS: BENZTROPINE MESYLATE 1 MG TAB PO SCH ×2 (08:28→21:16)
[2017-02-17] MEDS: CALCIUM CARBONATE 500 MG CHEWABLE TAB PO SCH (08:28)
[2017-02-17] MEDS: DOCUSATE SODIUM 100 MG CAP PO SCH (08:28)
[2017-02-17] MEDS: RIVAROXABAN 10 MG TAB PO SCH (08:28)
[2017-02-17] MEDS: QUEtiapine FUMARATE 200 MG TAB PO SCH (08:28)
[2017-02-17] MEDS: FLUTICASONE HFA 110 MCG MDI IH SCH ×3 (09:36→20:33)
[2017-02-17] MEDS: IPRATROPIUM/ALBUTEROL 4GM MDI IH SCH ×3 (09:37→20:35)
--- NOTE | 2017-02-17 11:13 | SOAPPROG ---
WARNER Progress Note Assessment/Plan: Assessment: Plan: 02/15/17 14:48 Surgery cancelled for Today OR did not have the appropriate equiptment to complete the case. Will work to reschedule for tomorrow 02/17/17 11:12 POD#1 IMN tibia <50% weightbearing PT/OT Xarelto for DVT prophylaxis SNF Subjective: Doing better Today working with therapy Objective: DRessing c/d/i calf soft 5/5 df/pf 1+ Dp/tp pulses Vital Signs Temp Pulse Resp BP Pulse Ox 37.1 C 92 16 133/86 H 93 02/17/17 07:40 02/17/17 07:40 02/17/17 07:40 02/17/17 07:40 02/17/17 07:40 02/16/17 02/17/17 02/18/17 05:59 05:59 05:59 Intake Total 500 1350 Output Total 650 2000 300 Balance -150 -650 -300 PT 13.5 SEC (12.0-15.0) 02/14/17 09:17 INR 1.04 (0.83-1.16) 02/14/17 09:17 ICD10 Worksheet Patient Problems: Problems Problem Status Onset Closed left tibial fracture Acute
[2017-02-17] MEDS: LEVALBUTEROL INHALER 200 PUFFS/15 GM MDI IH SCH (11:18)
--- NOTE | 2017-02-17 15:56 | HOSPPROG ---
Hospitalist Progress Note Assessment/Plan: 61 yo F with PMH of COPD, schizophrenia admitted s/p mechanical fall with displaced proximal tibial fracture # left displaced proximal tibial fracture: now s/p surgical fixation, post op xray with good alignment. Pain is well controlled. will need pt/ot going forward. # mechanical fall: patient with issues with fall in the past as well, she has what sounds like both EPS and Parkinsonian like sxs related to her psychiatric medications. PT/OT to evaluate, suspect she will require snf. # copd: with e/o acute exacerbation, will continue her usual inhalers # schizophrenia: well controlled though with many side effects from her medications as above, will continue her home regimen, she is followed by [facility] as an OP # dvt ppx: started on xarelto, will likely need to continue for several weeks # dispo: IP status, will need > 48 hours stay for eval/mgmt of above Care plan reviewed with CM. Subjective: no significant overnight events, has not been up out of bed yet but states she will work with pt today Objective: Vital Signs Temp Pulse Resp BP Pulse Ox 36.5 C 97 14 118/71 92 02/17/17 15:54 02/17/17 15:54 02/17/17 15:54 02/17/17 15:54 02/17/17 15:54 02/16/17 02/17/17 02/18/17 05:59 05:59 05:59 Intake Total 500 1350 500 Output Total 650 2000 300 Balance -150 -650 200 PT 13.5 SEC (12.0-15.0) 02/14/17 09:17 INR 1.04 (0.83-1.16) 02/14/17 09:17 awake alert nad anicteric rrr no mrg cta b soft nt nd lle bandaged warm dry well perfused oriented appropriate ICD10 Worksheet Patient Problems: Problems Problem Status Onset Closed left tibial fracture Acute
[2017-02-17] MEDS: DIVALPROEX NA 500 MG TAB PO SCH (21:15)
[2017-02-17] MEDS: QUEtiapine FUMARATE 300 MG TAB PO SCH (21:15)
[2017-02-17] MEDS: QUEtiapine FUMARATE 100 MG TAB PO SCH (21:16)
[2017-02-18] MEDS: oxyCODONE IR 5 MG TAB PO PRN ×2 (05:04→17:43)
[2017-02-18] MEDS: DOCUSATE SODIUM 100 MG CAP PO SCH (08:16)
[2017-02-18] MEDS: QUEtiapine FUMARATE 200 MG TAB PO SCH (08:16)
[2017-02-18] MEDS: CALCIUM CARBONATE 500 MG CHEWABLE TAB PO SCH (08:16)
[2017-02-18] MEDS: BENZTROPINE MESYLATE 1 MG TAB PO SCH ×2 (08:17→21:48)
[2017-02-18] MEDS: RIVAROXABAN 10 MG TAB PO SCH (08:17)
[2017-02-18] MEDS: IPRATROPIUM/ALBUTEROL 4GM MDI IH SCH ×2 (10:35→21:02)
[2017-02-18] MEDS: FLUTICASONE HFA 110 MCG MDI IH SCH ×2 (10:35→21:02)
--- NOTE | 2017-02-18 12:01 | SOAPPROG ---
SOAP Progress Note Assessment/Plan: Assessment: Plan: POD #1 as planned 02/18/17 12:01 Subjective: Doing well, pain controlled no issues Objective: Vital Signs Temp Pulse Resp BP Pulse Ox 36.9 C 104 H 12 107/69 94 02/18/17 11:54 02/18/17 11:54 02/18/17 11:54 02/18/17 11:54 02/18/17 11:54 02/17/17 02/18/17 02/19/17 05:59 05:59 05:59 Intake Total 1350 2850 500 Output Total 2000 2750 Balance -650 100 500 PT 13.5 SEC (12.0-15.0) 02/14/17 09:17 INR 1.04 (0.83-1.16) 02/14/17 09:17 Dressing CDI, calf NT, NVI - Time Spent With Patient Time Spent With Patient: 10 - Pending Discharge Pending Discharge Within 24 Hours: No Pending Discharge Within 48 Hours: No ICD10 Worksheet Patient Problems: Problems Problem Status Onset Closed left tibial fracture Acute
[2017-02-18 15:44] VITALS: RESP 16
[2017-02-18] MEDS: LEVALBUTEROL INHALER 200 PUFFS/15 GM MDI IH SCH (16:34)
--- NOTE | 2017-02-18 17:00 | HOSPPROG ---
Hospitalist Progress Note Assessment/Plan: 61 yo F with PMH of COPD, schizophrenia admitted s/p mechanical fall with displaced proximal tibial fracture left displaced proximal tibial fracture: now s/p surgical fixation, post op xray with good alignment. Pain is well controlled. will need pt/ot going forward. mechanical fall: patient with issues with fall in the past as well, she has what sounds like both EPS and Parkinsonian like sxs related to her psychiatric medications. PT/OT to evaluate, suspect she will require snf. copd: with e/o acute exacerbation, will continue her usual inhalers schizophrenia: well controlled though with many side effects from her medications as above, will continue her home regimen, she is followed by [facility] as an OP dvt ppx: started on xarelto, will likely need to continue for several weeks dispo: IP status, will need > 48 hours stay for eval/mgmt of above snf in AM Subjective: feels well Objective: Vital Signs Temp Pulse Resp BP Pulse Ox 36.4 C 100 16 118/75 91 L 02/18/17 15:43 02/18/17 15:43 02/18/17 15:43 02/18/17 15:43 02/18/17 15:43 02/17/17 02/18/17 02/19/17 05:59 05:59 05:59 Intake Total 1350 2850 500 Output Total 2000 2750 Balance -650 100 500 PT 13.5 SEC (12.0-15.0) 02/14/17 09:17 INR 1.04 (0.83-1.16) 02/14/17 09:17 - Physical Exam Constitutional: no apparent distress, appears nourished Eyes: PERRL, anicteric sclera Ears, Nose, Mouth, Throat: moist mucous membranes, hearing normal Cardiovascular: regular rate and rhythym, no murmur, rub, or gallop Respiratory: no respiratory distress, no rales or rhonchi Gastrointestinal: normoactive bowel sounds, soft, non-tender abdomen Genitourinary: No tomlinson in urethra Skin: warm, normal color Musculoskeletal: full muscle strength, no muscle tenderness Neurologic: AAOx3, sensation intact bilaterally Psychiatric: interacting appropriately, not anxious Lymph, Heme, Immunologic: no cervical LAD ICD10 Worksheet Patient Problems: Problems Problem Status Onset Closed left tibial fracture Acute
[2017-02-18] MEDS: QUEtiapine FUMARATE 300 MG TAB PO SCH (21:47)
[2017-02-18] MEDS: QUEtiapine FUMARATE 100 MG TAB PO SCH (21:47)
[2017-02-18] MEDS: DIVALPROEX NA 500 MG TAB PO SCH (21:48)
[2017-02-19 04:37] LABS: % IMMATURE GRANULYOCYTES 0.3 % (0.0-1.1); ABSOLUTE IMMATURE GRANULOCYTES 0.03 10^3/uL (0.00-0.10); ADD DIFF? NO; ADD MORPH? NO; ADD SCAN? NO; ATYPICAL LYMPHOCYTE FLAG 0 (0-99); FRAGMENT RBC FLAG 0 (0-99); HEMATOCRIT 30.9 % (38.0-47.0); HEMOGLOBIN 10.7 g/dL (12.6-16.3); LEFT SHIFT FLG 0 (0-99); LIPEMIA HEMOLYSIS FLAG 90 (0-99); MEAN CELL HEMOGLOBIN CONCENTR. 34.6 g/dL (32.4-36.7); MEAN CELL VOLUME 80.9 fL (81.5-99.8); MEAN PLATELET VOLUME 9.7 fL (8.7-11.7); PLATELET CLUMPS FLAG 0 (0-99); PLATELET COUNT 307 10^3/uL (150-400); RED BLOOD CELL COUNT 3.82 10^6/uL (4.18-5.33); RED CELL DISTRIBUTION WIDTH 16.4 % (11.5-15.2)
[2017-02-19 05:02] LABS: ANION GAP 10 mEq/L (8-16); CALCIUM 8.9 mg/dL (8.5-10.4); CARBON DIOXIDE 26 mEq/l (22-31); CHLORIDE 98 mEq/L (97-110); CREATININE 0.4 mg/dL (0.6-1.0); GLOMERULAR FILTRATION RATE > 60; GLUCOSE 103 mg/dL (70-100); POTASSIUM 4.1 mEq/L (3.5-5.2); SODIUM 134 mEq/L (134-144)
[2017-02-19 07:24] VITALS: BP 123/62; TEMP 97.9
[2017-02-19] MEDS: BENZTROPINE MESYLATE 1 MG TAB PO SCH (08:13)
[2017-02-19] MEDS: RIVAROXABAN 10 MG TAB PO SCH (08:13)
[2017-02-19] MEDS: QUEtiapine FUMARATE 200 MG TAB PO SCH (08:13)
[2017-02-19] MEDS: oxyCODONE IR 5 MG TAB PO PRN (08:14)
[2017-02-19] MEDS: KETOROLAC 30 MG/1 ML SDV IVP PRN (08:14)
[2017-02-19] MEDS: CALCIUM CARBONATE 500 MG CHEWABLE TAB PO SCH (08:14)
[2017-02-19] MEDS: FLUTICASONE HFA 110 MCG MDI IH SCH (09:19)
[2017-02-19] MEDS: IPRATROPIUM/ALBUTEROL 4GM MDI IH SCH (09:19)
[2017-02-19] MEDS: LEVALBUTEROL INHALER 200 PUFFS/15 GM MDI IH SCH (09:23)
[2017-02-19 09:25] VITALS: PULSE 96; O2SAT 96
[2017-02-19] MEDS: DOCUSATE SODIUM 100 MG CAP PO SCH (10:19)
--- NOTE | 2017-02-19 13:55 | HOSPPROG ---
Hospitalist Progress Note Assessment/Plan: 61 yo F with PMH of COPD, schizophrenia admitted s/p mechanical fall with displaced proximal tibial fracture left displaced proximal tibial fracture: now s/p surgical fixation, post op xray with good alignment. Pain is well controlled. will need pt/ot going forward. mechanical fall: patient with issues with fall in the past as well, she has what sounds like both EPS and Parkinsonian like sxs related to her psychiatric medications. PT/OT to evaluate, suspect she will require snf. copd: with e/o acute exacerbation, will continue her usual inhalers schizophrenia: well controlled though with many side effects from her medications as above, will continue her home regimen, she is followed by [facility] as an OP dvt ppx: started on xarelto, will likely need to continue for several weeks dispo: to SNF > 30 minutes on dc Subjective: has bed at SNF. amenable to dc Objective: Vital Signs Temp Pulse Resp BP Pulse Ox 36.6 C 96 16 123/62 H 96 02/19/17 07:23 02/19/17 09:20 02/19/17 07:23 02/19/17 07:23 02/19/17 09:20 Laboratory Results 02/19/17 04:12 02/19/17 04:12 02/18/17 02/19/17 02/20/17 05:59 05:59 05:59 Intake Total 2850 1000 Output Total 2750 600 Balance 100 400 PT 13.5 SEC (12.0-15.0) 02/14/17 09:17 INR 1.04 (0.83-1.16) 02/14/17 09:17 - Physical Exam Constitutional: no apparent distress, appears nourished Eyes: PERRL, anicteric sclera Ears, Nose, Mouth, Throat: moist mucous membranes, hearing normal Cardiovascular: regular rate and rhythym, no murmur, rub, or gallop Respiratory: no respiratory distress, no rales or rhonchi Gastrointestinal: normoactive bowel sounds, soft, non-tender abdomen Genitourinary: no bladder fullness, No tomlinson in urethra Skin: warm, normal color Musculoskeletal: full muscle strength, no muscle tenderness Neurologic: AAOx3 ICD10 Worksheet Patient Problems: Problems Problem Status Onset Closed left tibial fracture Acute
--- NOTE | 2017-02-19 13:59 | PDIAF ---
- Diagnosis Diagnosis: tibial fracture Code Status: Full Code - Medication Management Discharge Medications: Medications to Continue on Transfer Alendronate Sodium [Fosamax 35 MG] 35 mg PO FR 02/14/17 [Last Taken Unknown] Benztropine Mesylate [Cogentin] 1 mg PO BID 02/14/17 [Last Taken Unknown] Calcium Carbonate [Tums 500MG (*)] 500 mg PO DAILY 02/14/17 [Last Taken Unknown] Cholecalciferol Vit D3 [Vitamin D3 (*)] 1,000 units PO DAILY 02/14/17 [Last Taken Unknown] Docusate Sodium [Colace] 100 mg PO DAILY 02/14/17 [Last Taken Unknown] Fluticasone Hfa 110 Mcg [Flovent 110 MCG Hfa MDI (*)] 1 puffs IH BID 02/14/17 [ Last Taken Unknown] Herbals/Supplements -Info Only 1 ea PO DAILY 02/14/17 [Last Taken Unknown] Ipratropium/Albuterol [Combivent Respimat Inhal [place](*)] 1 puffs IH QID [Last Taken Unknown] Levalbuterol Inhaler [Xopenex Hfa Inhaler (*)] 2 puffs IH Q4 02/14/17 [Last Taken Unknown] QUEtiapine FUMARATE [Seroquel 100 mg (*)] 100 mg PO HS 02/14/17 [Last Taken Unknown] QUEtiapine FUMARATE [Seroquel 200 mg (*)] 400 mg PO DAILY 02/14/17 [Last Taken Unknown] QUEtiapine FUMARATE [Seroquel 300mg (*)] 600 mg PO HS 02/14/17 [Last Taken Unknown] fluPHENAZine HCL [Prolixin 10 MG (*)] 30 mg PO HS 02/14/17 [Last Taken Unknown] Divalproex Sodium [Depakote] 1,000 mg PO HS 02/15/17 [Last Taken Unknown] rOPINIRole HCL [Requip 2mg (*)] 2 mg PO HS 02/15/17 [Last Taken Unknown] Rivaroxaban [Xarelto 10mg (*)] 10 mg PO DAILY tab 02/19/17 [Last Taken Unknown] oxyCODONE IR [Oxycodone Ir (*)] 5 - 10 mg PO Q3HRS PRN #0 tab 02/19/17 [Last Taken Unknown] Discharge Medications: Refer to the Discharge Home Medication list for PRN reason. - Orders Services needed: Registered Nurse, Physical Therapy, Occupational Therapy - Follow Up Care Current Providers and Referrals: [facility] [Clinic] - ( INSTRUCTED. ) Patient,NotPresent [Unknown] - As per Instructions
--- NOTE | 2017-02-19 18:37 | GDS ---
[f rep st] DISCHARGE SUMMARY DISCHARGE DIAGNOSES: 1. Comminuted transverse fracture through the proximal metaphysis of the left tibia, status post op erative repair. 2. Chronic obstructive pulmonary disease. 3. Schizophrenia with extrapyramidal symptoms. Please see admission history and physical by Dr. Mary Hensley. The patient presented with a [facility] anical fall on the morning of the . She had CTA showing no vascular injury. She was seen by Or thopedics and underwent operative repair on the following day. She has done well without evidence o f significant blood loss anemia; although, she does have some evidence of "blood loss anemia." She is moving her bowels, pain is well controlled, and she is discharged to [place]. She will receiv e 3 weeks of pharmacologic DVT prophylaxis. /[id number]/MODL
== END 2017-02-19 15:32 | DRG 493 ==
LOC: EDUNIT# → F3N 11:06 → OBSVTOIN 11:25
PROVIDERS: ADMIT Internal Medicine; ATTEND Internal Medicine
PROC: 0QSH06Z Reposition Left Tibia with Intramedullary Internal Fixation Device, Open Approach (ICD-10-PCS; principal; 2017-02-16 06:00)
DX: S82.252A Displaced comminuted fracture of shaft of left tibia, initial encounter for closed fracture (principal); D62 Acute posthemorrhagic anemia; J44.9 Chronic obstructive pulmonary disease, unspecified; F20.9 Schizophrenia, unspecified; W18.39XA Other fall on same level, initial encounter; Z87.891 Personal history of nicotine dependence; Y93.01 Activity, walking, marching and hiking; Y92.480 Sidewalk as the place of occurrence of the external cause
CPT/HCPCS: 96374; 97161-GP; 97165-GO; 97530-GP; 97535-GO; C1713; G8978-GP-CK; G8979-GP-CI; G8987-GO-CL; G8988-GO-CJ; J1100; J1170; J1885; J2060; J2250; J2405; J2704; J3010; Q9967

== ENCOUNTER 2017-12-10 15:30 | Inpatient (IN) | payer OTHER, MEDICAID ==
--- NOTE | 2017-12-10 16:12 | EDPHY ---
H & P Time Seen by Provider: 12/10/17 15:33 HPI/ROS: CHIEF COMPLAINT: "I am here to have my blood drawn" HISTORY OF PRESENT ILLNESS: Patient is a 62-year-old female who comes from [place] reporting that she needs her blood drawn. Per report the patient was having shortness of breath. When I questioned the patient, she denies shortness of breath or cough. No fevers or chills. No chest pain. No abdominal pain. No nausea or vomiting. No dysuria or frequency. The patient has no complaints at this time. REVIEW OF SYSTEMS: My complete review of systems is negative except as mentioned in the HPI. Past Medical/Surgical History: Includes asthma, COPD, schizophrenia Past surgical history: Orthopedics Social history: Patient lives at [place]. She does not smoke. Smoking Status: Former smoker Physical Exam: 106/68, 122, 18, 103, 93 on 4 L GENERAL: No acute distress, alert. The patient's room smells of urine. HEENT: Eyes normal to inspection, normal pharynx, no signs of dehydration. NECK: No thyromegaly, no lymphadenopathy, supple. RESPIRATORY: Clear to auscultation bilaterally, no rales, rhonchi or wheezing. CVS: Regular rate and rhythm, no rubs, murmurs, or gallops. ABDOMEN: Soft, nontender, nondistended, no organomegaly. Pelvis: Normal external exam. Diaper in place. BACK: Normal to inspection, no CVA tenderness. SKIN: Normal color, no rash, warm, dry. No pallor. EXTREMITIES: No pedal edema, no calf tenderness, no Homans sign or cords, no joint swelling. NEURO/PSYCH: Alert and oriented x2, flat affect, normal motor sensory exam. Constitutional: Initial Vital Signs Temperature (C) 39.4 C H 12/10/17 16:01 Heart Rate 122 H 12/10/17 16:01 Respiratory Rate 23 H 12/10/17 16:01 Blood Pressure 140/73 H 12/10/17 16:01 O2 Sat (%) 91 L 12/10/17 16:01 O2 Delivery Mode Nasal Cannula O2 (L/minute) 4 Allergies/Adverse Reactions: diphenhydramine HCl [From Benadryl] Allergy (Unknown, Verified 01/08/13 10:36) Penicillins Allergy (Verified 01/08/13 10:36) Home Medications: Medication Instructions Recorded Alendronate Sodium [Fosamax 35 MG] 35 mg PO FR 02/14/17 Benztropine Mesylate [Cogentin] 1 mg PO BID 02/14/17 Calcium Carbonate [Tums 500MG (*)] 500 mg PO DAILY 02/14/17 Cholecalciferol Vit D3 [Vitamin D3 1,000 units PO DAILY 02/14/17 (*)] Docusate Sodium [Colace] 100 mg PO DAILY 02/14/17 Fluticasone Hfa 110 Mcg [Flovent 1 puffs IH BID 02/14/17 110 MCG Hfa MDI (*)] Herbals/Supplements -Info Only 1 ea PO DAILY 02/14/17 Ipratropium/Albuterol [Combivent 1 puffs IH QID 02/14/17 Respimat Inhal [place](*)] Levalbuterol Inhaler [Xopenex Hfa 2 puffs IH Q4 02/14/17 Inhaler (*)] QUEtiapine FUMARATE [Seroquel 100 100 mg PO HS 02/14/17 mg (*)] QUEtiapine FUMARATE [Seroquel 200 400 mg PO DAILY 02/14/17 mg (*)] QUEtiapine FUMARATE [Seroquel 600 mg PO HS 02/14/17 300mg (*)] fluPHENAZine HCL [Prolixin 10 MG 30 mg PO HS 02/14/17 (*)] Divalproex Sodium [Depakote] 1,000 mg PO HS 02/15/17 rOPINIRole HCL [Requip 2mg (*)] 2 mg PO HS 02/15/17 Rivaroxaban [Xarelto 10mg (*)] 10 mg PO DAILY tab 02/19/17 oxyCODONE IR [Oxycodone Ir (*)] 5 - 10 mg PO Q3HRS PRN #0 tab 02/19/17 Medical Decision Making - Diagnostics Imaging Results: Imaging Impressions Chest X-Ray 12/10/17 16:14 Impression: Patchy infiltrate left lower lobe suspicious for pneumonia. Pulmonary vascular prominence.. ED Course/Re-evaluation: In the emergency department I discussed possible etiologies with the patient. I answered all her questions. On my initial evaluation I did not yet have vital signs. These were requested from the nursing staff. Patient was noted to be tachycardic with a temperature 103 degrees. Sepsis order set was followed. I reviewed the patient's laboratory studies. Patient's white count was normal at 7.4. Hematocrit 36.9. Platelets are 172. Patient's chemistry panel was notable for low sodium 128. Potassium 3.2. Chloride no low at 93. Carbon dioxide was 24. Anion gap was 11 %period% creatinine was 0.5. Lactate was 0.9. Chest x-ray: Patchy infiltrate in left lower lobe. I discussed the results with the patient. The patient has allergy to penicillin. The patient was given Levaquin 750 mg IV. Awaiting urine results. Patient was given potassium chloride 40 mEq p.o.. Discussed case with the hospitalist service. Differential Diagnosis: My differential includes but is not limited to bacteremia, sepsis, urosepsis, pneumonia, bronchitis, electrolyte abnormality, sugar abnormality - Data Points Laboratory Results: Laboratory Results 12/10/17 16:03 12/10/17 16:03 12/10/17 12/10/17 12/10/17 16:03 16:03 16:03 WBC 7.41 10^3/uL 10^3/uL (3.80-9.50) RBC 4.57 10^6/uL 10^6/uL (4.18-5.33) Hgb 13.3 g/dL g/dL (12.6-16.3) Hct 36.9 % L % (38.0-47.0) MCV 80.7 fL L fL (81.5-99.8) MCH 29.1 pg pg (27.9-34.1) MCHC 36.0 g/dL g/dL (32.4-36.7) RDW 15.5 % H % (11.5-15.2) Plt Count 172 10^3/uL 10^3/uL (150-400) MPV 9.8 fL fL (8.7-11.7) Neut % (Auto) 86.3 % H % (39.3-74.2) Lymph % (Auto) 6.5 % L % (15.0-45.0) [place] % (Auto) 6.7 % % (4.5-13.0) Eos % (Auto) 0.0 % L % (0.6-7.6) Baso % (Auto) 0.1 % L % (0.3-1.7) Nucleat RBC Rel Count 0.0 % % (0.0-0.2) Absolute Neuts (auto) 6.39 10^3/uL 10^3/uL (1.70-6.50) Absolute Lymphs (auto) 0.48 10^3/uL L 10^3/uL (1.00-3.00) Absolute Monos (auto) 0.50 10^3/uL 10^3/uL (0.30-0.80) Absolute Eos (auto) 0.00 10^3/uL L 10^3/uL (0.03-0.40) Absolute Basos (auto) 0.01 10^3/uL L 10^3/uL (0.02-0.10) Absolute Nucleated RBC 0.00 10^3/uL 10^3/uL (0-0.01) Immature Gran % 0.4 % % (0.0-1.1) Immature Gran # 0.03 10^3/uL 10^3/uL (0.00-0.10) RBC/WBC/PLT Morphology TNP Platelet Estimate TNP PT 14.5 SEC SEC (12.0-15.0) INR 1.11 (0.83-1.16) APTT 32.7 SEC SEC (23.0-38.0) VBG Lactic Acid Sodium 128 mEq/L L mEq/L (135-145) Potassium 3.2 mEq/L L mEq/L (3.3-5.0) Chloride 93 mEq/L L mEq/L (97-110) Carbon Dioxide 24 mEq/l mEq/l (22-31) Anion Gap 11 mEq/L mEq/L (8-16) BUN 8 mg/dL mg/dL (7-23) Creatinine 0.5 mg/dL L mg/dL (0.6-1.0) Estimated GFR > 60 Glucose 107 mg/dL H mg/dL (70-100) Calcium 7.7 mg/dL L mg/dL (8.5-10.4) Total Bilirubin 0.4 mg/dL mg/dL (0.1-1.4) Conjugated Bilirubin 0.4 mg/dL mg/dL (0.0-0.5) Unconjugated Bilirubin 0.0 mg/dL mg/dL (0.0-1.1) AST 196 IU/L H IU/L (14-46) ALT 48 IU/L IU/L (9-52) Alkaline Phosphatase 52 IU/L IU/L (38-126) Total Protein 6.0 g/dL L g/dL (6.3-8.2) Albumin 2.9 g/dL L g/dL (3.5-5.0) Lipase 17 IU/L L IU/L (23-300) 12/10/17 16:03 WBC RBC Hgb Hct MCV MCH MCHC RDW Plt Count MPV Neut % (Auto) Lymph % (Auto) [place] % (Auto) Eos % (Auto) Baso % (Auto) Nucleat RBC Rel Count Absolute Neuts (auto) Absolute Lymphs (auto) Absolute Monos (auto) Absolute Eos (auto) Absolute Basos (auto) Absolute Nucleated RBC Immature Gran % Immature Gran # RBC/WBC/PLT Morphology Platelet Estimate PT INR APTT VBG Lactic Acid 0.9 mmol/L mmol/L (0.7-2.1) Sodium Potassium Chloride Carbon Dioxide Anion Gap BUN Creatinine Estimated GFR Glucose Calcium Total Bilirubin Conjugated Bilirubin Unconjugated Bilirubin AST ALT Alkaline Phosphatase Total Protein Albumin Lipase Departure - Departure Disposition: [facility] Inpatient Acute Clinical Impression: Pneumonia Qualifiers: Pneumonia type: due to unspecified organism Laterality: left Lung location: lower lobe of lung Qualified Code(s): J18.1 - Lobar pneumonia, unspecified organism Condition: Good Referrals: Patient,NotPresent [Unknown] - As per Instructions
[2017-12-10] MEDS ORDERED: NS 500 ML IV ONE (16:15)
[2017-12-10 16:26] LABS: PLATELET COUNT 172 10^3/uL (150-400)
[2017-12-10 16:36] LABS: INR 1.11 (0.83-1.16); PROTIME(PATIENT) 14.5 SEC (12.0-15.0)
[2017-12-10] MEDS ORDERED: AZITHROMYCIN IV 500 MG in D5W 250 ML IV ONE (17:03)
[2017-12-10] MEDS ORDERED: POTASSIUM CL 20 MEQ/15 ML UDCUP PO ONE (17:05)
[2017-12-10] MEDS ORDERED: ACETAMINOPHEN 500 MG TAB PO ONE (17:05)
[2017-12-10] MEDS ORDERED: ONDANSETRON DISINTEGRATING 4 MG TAB PO PRN (17:33)
[2017-12-10] MEDS ORDERED: ONDANSETRON 4 MG/2 ML VIAL IVP PRN (17:33)
[2017-12-10] MEDS ORDERED: ACETAMINOPHEN 325 MG TAB PO PRN (17:33)
[2017-12-10] MEDS ORDERED: NS 1,000 ML IV SCH (19:00)
--- NOTE | 2017-12-10 19:48 | GHP ---
[f rep st] HISTORY AND PHYSICAL DATE OF ADMISSION: 12/10/2017 CHIEF COMPLAINT: Fevers, pneumonia. HISTORY OF PRESENT ILLNESS: A 62-year-old female with a history of schizophrenia, COPD, and asthma, brought in from [place] with shortness of breath. Her saturations were in the 80s. The patient denies having any symptoms of fevers, chills, or sweats. Has had a cough, but could not tell me if it was productive. X-ray revealed a left lower lobe pneumonia. REVIEW OF SYSTEMS: I completed a 10-point review of systems, negative except as noted in HPI. PAST MEDICAL HISTORY: COPD, schizophrenia with extrapyramidal symptoms. PAST SURGICAL HISTORY: Tubal ligation, left tibial nail. SOCIAL HISTORY: Lives at [place]. No alcohol, tobacco, or illicits. Smoked previously. FAMILY HISTORY: Noncontributory. ALLERGIES: Benadryl, penicillin. HOME MEDICATIONS: Ropinirole 2 mg at bedtime, Prolixin 30 mg at bedtime, Seroquel 700 mg at bedtime, MiraLAX as needed, Xopenex inhalers, DuoNebs, Flonase, docusate, Depakote 1000 mg at bedtime, calcium, benztropine 1 mg twice daily, alendronate, and Tylenol. PHYSICAL EXAMINATION: VITAL SIGNS: Temperature 39.4, blood pressure 140/73. Heart rate was 120, now 97. Respirations , 93% on 4 liters. GENERAL: A female lying in bed, mildly ill-appearing. HEENT: Significantly dry mucous membranes with crusting over. CV: Regular rate and rhythm. No murmurs, gallops, or rubs. LUNGS: Rhonchi left mid lung to base. ABDOMEN: Soft, nontender, nondistended. Positive bowel sounds. : No Singh. MUSCULOSKELETAL: 5/5 upper and lower extremity strength. NEUROLOGIC: 2 through 12 intact with extraforaminal symptoms of smacking lips. SKIN: Warm, dry. No rash. LABS: Sodium 128, potassium 3.2, chloride 93, BUN 8, creatinine 0.9, glucose is 107, calcium 7.4, total bilirubin 0.4. Lactate is 0.9. Coags within normal. WBC 7, hemoglobin 13, hematocrit 36, MCV is 80, platelets 172. Chest x-ray personally reviewed by me, positive spine sign, left lower lobe opacity. ASSESSMENT AND PLAN: 1. Systemic inflammatory response syndrome with tachycardia and pneumonia. Normal lactate. Will treat with Levaquin given penicillin allergy. Blood cultures are pending. 2. Fever. Again, due to pneumonia. Blood cultures, Legionella and strep pending. 3. Hypovolemic hyponatremia. Very dry on exam. Give gentle hydration. Repeat in the morning. 4. Hypokalemia. Replete and repeat. 5. Chronic obstructive pulmonary disease. No evidence of exacerbation. Resume home inhalers. 6. Schizophrenia. Resume home medications. 7. Diet regular. 8. DVT prophylaxis, Lovenox. 9. Disposition: The patient warrants inpatient admission given sepsis, pneumonia, warranting IV fluids and antibiotics. /[id number]/MODL MTDD
[2017-12-10] MEDS: IPRATROPIUM/ALBUTEROL 4GM MDI IH SCH (20:26)
[2017-12-10] MEDS ORDERED: LEVALBUTEROL INHALER 200 PUFFS/15 GM MDI IH PRN (20:45)
[2017-12-10] MEDS: DIVALPROEX NA 500 MG TAB PO SCH (20:50)
[2017-12-10] MEDS: QUEtiapine FUMARATE 200 MG TAB PO SCH (20:50)
[2017-12-10] MEDS: CALCIUM CARBONATE 500 MG CHEWABLE TAB PO SCH (20:50)
[2017-12-10] MEDS: DOCUSATE SODIUM 100 MG CAP PO SCH (20:50)
[2017-12-10] MEDS: BENZTROPINE MESYLATE 1 MG TAB PO SCH (20:50)
[2017-12-10] MEDS ORDERED: LEVALBUTEROL INHALER 200 PUFFS/15 GM MDI IH SCH (22:00)
--- NOTE | 2017-12-10 23:06 | CPEKG ---
Heart Rate: 93 RR Interval: 645 P-R Interval: 124 QRSD Interval: 90 QT Interval: 340 QTC Interval: 423 P Index: 51 QRS Index: 26 T Wave Index: -10 EKG Severity - NORMAL ECG - EKG Impression: SINUS RHYTHM Electronically Signed By: Selina Glass 11-Dec-2017 04:56:39
--- NOTE | 2017-12-10 23:17 | PDMN ---
Medical Necessity Medical necessity: C/M review: est. > 2 MN LOS for eval and TX of acute systemic inflammatory response syndrome with tachycardia and pneumonia, sepsis, fever, hypovolemic hyponatremia, hypokalemia requiring IV Azithramycin and IV Ceftriaxone in ED, IV fluids, ongoing transition to oral Levaquin starting 2017, pulse oximetry, supplemental O2, acute inpt OT/ST, comorbid COPD with no evidence of exacerbation, schizophrenia with extrapyramidal symptoms per H/P.
[2017-12-11] MEDS: IPRATROPIUM/ALBUTEROL 4GM MDI IH SCH (05:12)
--- NOTE | 2017-12-11 09:00 | HOSPPROG ---
Hospitalist Progress Note Assessment/Plan: Patient is a 62-year-old female with a history schizophrenia, COPD and asthma. She was brought in by [facility] with shortness of breath. Her oxygen levels were in the 80s. Today is my 1st encounter with the patient. Chart reviewed. * acute hypoxemic respiratory failure -will check an ABG now -increase wob -get a repeat chest xray now * pneumonia -chest x-ray shows left lower lobe -increase O2 needs *Hyponatremia -check urine studies now * sepsis -blood cultures pending -tachycardic, hypoxic, febrile * schizophrenia -unclear of her baseline *Urinary retention; -place tomlinson *Pitting edema -will get an echo to further evaluate *Plan: transfer to higher level of care (ICU or step-down), give a dose of Lasix , Tomlinson, abg stat, echo Subjective: Kristie isn't able to tell me if she is in pain, etc. Answers questions. Objective: Vital Signs Temp Pulse Resp BP Pulse Ox 37.1 C 107 H 24 H 130/61 H 96 12/11/17 04:00 12/11/17 05:12 12/11/17 05:12 12/11/17 04:00 12/11/17 05:12 Microbiology 12/10/17 23:40 Respiratory Panel (PCR) - Final Nasal, Sinus - Swab No Organism Detected Laboratory Results 12/11/17 05:10 12/10/17 12/11/17 12/12/17 05:59 05:59 05:59 Intake Total 1250 Output Total 950 Balance 300 PT 14.5 SEC (12.0-15.0) 12/10/17 16:03 INR 1.11 (0.83-1.16) 12/10/17 16:03 - Physical Exam Constitutional: chronically ill appearing, obese, No no apparent distress Eyes: PERRL Ears, Nose, Mouth, Throat: hearing normal Cardiovascular: regular rate and rhythym, edema (bilateral lower ext) Respiratory: reduced air movement, bronchial breath sounds, rhonchi, No no respiratory distress (tachypnea) Gastrointestinal: normoactive bowel sounds, other (large and round) Genitourinary: No no bladder fullness Skin: warm, No normal color (pale) Psychiatric: interacting appropriately, flat affect ICD10 Worksheet Patient Problems: Problems Problem Status Onset Pneumonia Acute Closed left tibial fracture Acute
[2017-12-11] MEDS ORDERED: FUROSEMIDE 20 MG/2 ML VIAL IVP ONE (09:12)
[2017-12-11] MEDS: BENZTROPINE MESYLATE 1 MG TAB PO SCH ×2 (09:44→20:45)
[2017-12-11] MEDS: CHOLECALCIFEROL VIT D3 1,000 UNITS TAB PO SCH (09:44)
[2017-12-11] MEDS: DOCUSATE SODIUM 100 MG CAP PO SCH ×2 (09:44→20:45)
[2017-12-11] MEDS: CALCIUM CARBONATE 500 MG CHEWABLE TAB PO SCH ×2 (09:44→20:45)
[2017-12-11] MEDS: ENOXAPARIN 40 MG/0.4 ML SYR SC SCH (09:45)
[2017-12-11] MEDS: FLUTICASONE HFA 110 MCG MDI IH SCH ×2 (09:45→21:05)
[2017-12-11] MEDS ORDERED: IBUPROFEN 200 MG TAB PO PRN (10:12)
[2017-12-11] MEDS: IPRATROPIUM/ALBUTEROL 3 ML DEYVIAL IH SCH ×3 (11:16→20:59)
[2017-12-11] MEDS ORDERED: NS 1,000 ML IV SCH (11:45)
--- NOTE | 2017-12-11 12:18 | ASMTCMCOM ---
CM Note CM Note Notes: 12/11/2017 Case Management Note Pt admitted for treatment of pneumonia. RN requested visit with sister Rhianna Arrington to establish medical proxy. Per RN pt is not oriented and unable to make complex decisions at this time. Proxy Decision Maker Interested persons: Rhianna Huertas Date: 12/11/2017 Time: 12:00 PM The interested persons collectively agreed that Rhianna Huertas knows the patient and is more likely to be informed of the patients wishes regarding treatment and should act as the patients healthcare proxy. Rhianna Huertas has been informed of her responsibilities as a healthcare proxy and has agreed to serve as the patients healthcare proxy. Rhianna Huertas can be contacted by phone at [phone]. Mother Marilee Rodrigues lives in [facility] in [place] [phone]. Left voicemail. Father Timmy Rodrigues lives in his home in [place] [phone]. Timmy in agreement with medical proxy choice. Sister Kimberlee Holloway lives in [place] at [phone]. Spoke with Kimberlee who is in agreement with proxy choice. Brother Pete Rodrigues lives in [place] [phone]. Left voicemail. All parties understand that proxy is in effect at [facility] only and that once pt is decisional again, proxy will not be in effect. Per Rhianna pt resides at [place]. Pt has had a diagnosis of schizophrenia for greater than 15 years. Faxed updates to [place]. Case Management d/c poc: return to [place] [facility]dc care Case Management to follow. Date Signed: 12/11/2017 12:17 PM Electronically Signed By:Debbie Infante RN
--- NOTE | 2017-12-11 16:03 | ECHO ---
[email or web address] [address] [address] Main: [phone] Fax: Transthoracic Echocardiogram Name: CONSTANZA NEELY MR#: [id number] Study Date: 12/11/2017 Study Time: 02:24 PM Date of : 1955 Age: 62 year(s) Height: 172.7 cm (68 in.) Weight: 98.88 kg (218 lb.) BSA: 2.12 m2 Gender: Female Examination: Echo Indication: Worsening SOB, Pneumonia, Eval LV Fx Image Quality: Contrast: Requested by: Harriet Tomas BP: 113 mmHg/ Heart Rate: Rhythm: Tachycardia Indication: Worsening SOB, Pneumonia, Eval LV Fx Procedure Staff Seed Technician: Chip Khan RDCS Reading Physician: Steve Anaya MD Requesting Provider: Conclusions: Global hypercontractility of the left ventricle. EF is 68 %. No regional wall motion abnormality. Normal RV function. The aortic valve is tri-leaflet and functions normally. Trivial to mild tricuspid valve regurgitation. The pulmonary artery pressure is normal. There is no previous echocardiogram for comparison. Measurements: Chambers Valvular Assessment AV/MV Valvular Assessment TV/PV Normal Normal Normal Name Value Range Name Value Range Name Value Range Ao Adri (MM): 2.5 cm (2.2 cm-3.7 AV Vmax: 2.27 m/s (1 m/s-1.7 TR Vmax: 2.82 mm/s ( - ) cm) m/s) TR PGmax: 32 mmHg ( - ) IVSd (2D): 0.9 cm (0.6 cm-1.1 AV maxP mmHg ( - ) syst. PAP: 37 mmHg ( - ) cm) LVOT Vmax: 1.28 m/s (0.7 m/s-1.1 PV Vmax: 1.47 m/s (0.6 m/s-0.9 LVDd (2D): 4.5 cm (3.9 cm-5.3 m/s) m/s) cm) MV E Vmax: 0.68 m/s ( - ) PV PGmax: 9 mmHg ( - ) LVDs (2D): 2.8 cm (2.1 cm-4 MV A Vmax: 0.78 m/s ( - ) cm) MV E/A: 0.87 ( - ) LVPWd (2D): 0.9 cm ( - ) LVEF (2D): 68 (>=54 %) Continued Measurements: Chambers Valvular Assessment AV/MV Valvular Assessment TV/PV Name Value Name Value Name Value LADs Lon.0 cm MV E' Septal: 0.07 m/s CVP (est.): 5 mmHg Patient: CONSTANZA NEELY Study Date: 12/11/2017 Page 1 of 2 02:24 PM LA Area: 15.7 cm2 MV E/E' Septal: 9.90 LA Volume: 42 ml MV E/E' Lateral: 11.00 LA Volume Index: 19.8 ml/m2 Findings: Left Ventricle: Normal size left ventricle. No LV hypertrophy. Global hypercontractility of the left ventricle. EF is 68 %. No regional wall motion abnormality. Diastolic dysfunction is present. . Right Ventricle: Normal size right ventricle. Normal RV function. Left Atrium: The left atrium is normal in size. Right Atrium: The right atrium is normal in size. Mitral Valve: The mitral valve is normal in appearance and function. Aortic Valve: The aortic valve is tri-leaflet and functions normally. The aortic valve is normal in appearance. Tricuspid Valve: The tricuspid valve appears normal. Trivial to mild tricuspid valve regurgitation. The pulmonary artery pressure is normal. Pulmonic Valve: The pulmonic valve is normal in appearance and function. Aorta: The aorta is normal. Pericardium: No pericardial effusion. There is pericardial fat. (No Signature Object) Patient: CONSTANZA NEELY Study Date: 12/11/2017 Page 2 of 2 02:24 PM [id number]
--- NOTE | 2017-12-11 18:01 | HOSPPROG ---
Hospitalist Progress Note Assessment/Plan: CRITICAL CARE NOTE 45 MIN SPENT BY ME AT BEDSIDE CRITICAL CARE TIME WITH THIS PATIENT TODAY Called to see this patient emergently with stat team and transferred to ICU due to altered mentation acutely with worsening respiratory status. This patient has COPD was admitted here yesterday with early sepsis, acute hypoxemic respiratory failure and pneumonia. She was started on antibiotic therapy with microbiological studies pending. This morning she developed abrupt decrease in alertness and responsiveness, and the nurses are describing to me is state that sounds like stupor. She was also not oxygenating well requiring increasing O2 delivery. Her blood pressures were stable but she became increasingly tachycardic through the night neurally morning and still tachycardic as I was visiting her. Respiratory rates up in the mid 30s on oxygen. As I was visiting the patient she was still stuporous, eyes open when I asked her to but she was not really able to converse with me not really able to follow commands otherwise. Her skin is pale but warm. Respirations mildly labored lungs with severe density throughout the left lower lobe, milder disease in the right lower lobe, enlarged heart but nothing that really look like pulmonary edema or effusions. This was a single-view chest x-ray. She was not in congestive heart failure by bedside exam. Her respirations were certainly labored and she had retractions with breathing on examination of the neck and ribcage. She had her head off to the left and when I go to pull her head back to midline there is some resistance. She denies headache or neck pain or eye pain. An echocardiogram was ordered and shows preserved ejection fraction with no pulmonary hypertension or valvular abnormalities, no other concerning changes. A CT scan of the head was ordered which shows no acute abnormalities, some atrophy and microischemic change consistent with age. I have reviewed the CT images and agree with radiology reading. Arterial blood gas was done showing a pCO2 of 30 pH of 7.46 with PO2 of 80 on high-flow oxygen. On review of her labs from this morning shows a little bit hyponatremic little changed from yesterday but no other significant chemistry abnormalities. A BMP was at 400 consistent with lack of findings At this point my impression is she has worsening pneumonia, acute metabolic encephalopathy, hyponatremia, with cultures and other microbiologic studies pending. I reviewed her case in detail with Dr. Elian Christiansen. The plan is to continue on with antibiotic therapy, respiratory supportive care, bronchodilators and steroids. She will be followed very closely at this point in ICU. Would consider the possibility of a meningitis but as she seems to be actually clearing through the day neurologically I think this is unlikely. She again denies headache or photophobia. She does meet some criteria for sepsis but is not hypotensive, has normal renal function, and does not have elevated lactates. Will follow closely and treat aggressively as indicated. Objective: Vital Signs Temp Pulse Resp BP Pulse Ox 37.2 C 106 H 37 H 117/54 L 96 12/11/17 16:00 12/11/17 16:00 12/11/17 16:00 12/11/17 16:00 12/11/17 16:00 Microbiology 12/10/17 23:40 Respiratory Panel (PCR) - Final Nasal, Sinus - Swab No Organism Detected Laboratory Results 12/11/17 05:10 12/10/17 12/11/17 12/12/17 06:59 06:59 06:59 Intake Total 1250 150 Output Total 950 550 Balance 300 -400 PT 14.5 SEC (12.0-15.0) 12/10/17 16:03 INR 1.11 (0.83-1.16) 12/10/17 16:03 ICD10 Worksheet Patient Problems: Problems Problem Status Onset Pneumonia Acute Closed left tibial fracture Acute
--- NOTE | 2017-12-11 18:18 | GCON ---
[f rep st] CONSULTATION CRITICAL CARE CONSULTATION DATE OF CONSULTATION: 12/11/2017 HISTORY OF PRESENT ILLNESS: This patient is a 62-year-old female with a history of COPD and schizoph hakan, who was admitted yesterday with oxygen saturations in the 80s, but denied having any shortness of breath, fevers, or chills. She did have a cough, but was unable to give many details at the time of her initial evaluation. A chest x-ray showed a left lower lobe infiltrate. She was thought to h ave pneumonia. She did have a high fever to 103 and was treated with Levaquin. She continued her us ua medications overnight, but this morning was apparently found unresponsive and was brought down to the ICU after a stat team call. She slowly regained her consciousness, but was unable to provide an y detail, as her speech was largely unintelligible. As far as I can tell, she has had no chest pain or arrhythmias. A blood gas was normal. Her labs were unremarkable today. Of note, yesterday her s odium was 128, which she has had difficulty with in the past, and her white count was only 7.4. REVIEW OF SYSTEMS: Otherwise negative. PAST MEDICAL HISTORY: 1. Includes COPD with an unknown FEV1. 2. Schizophrenia, on multiple medications. 3. long-term resident. 4. History of extrapyramidal symptoms and parkinsonism, thought to be due to her medications. She h ad a hospitalization at [facility] in 2017 for the same issue. 5. She had a left tibial fracture in the past as well as a tubal ligation and there were surgeries f or both of those events. OUTPATIENT MEDICATIONS: Include Fosamax, calcium carbonate, vitamin D3, Flonase, Combivent, Xopenex, Seroquel 700 mg p.o. q.h.s. and 40 mg daily, Cogentin, Prolixin, Requip, Xarelto, oxycodone, and Dep akote. SOCIAL HISTORY: She does have a smoking history, but it is unclear to me how much in the past. No s ignificant alcohol or IV drug use. FAMILY HISTORY: Noncontributory. EXAM: VITAL SIGNS: At the time of my visit, she had a blood pressure 111/69, heart rate 106, respir ations 30, oxygen saturation 95% on 4 L. T-max at this point was 38.6. GENERAL: She was awake and alert. As I said, unintelligible speech, but no obvious distress and spoke in full sentences without using accessory muscles for breathing. HEENT : Pupils are equally round and reactive to light. Non icteric and noninjected. Mucous membranes moist without erythema or exudate. No evidence of thrush. RESPIRATORY: Breath sounds were somewhat coarse bilaterally with no wheezing. HEART: Regular rat e and rhythm without murmurs, rubs, gallops. ABDOMEN: Soft, nontender, nondistended without hepatos plenomegaly. EXTREMITIES: Showed no clubbing, cyanosis, or edema. NEUROLOGICAL: Exam was noted fo r some stiffness in the lateral movement of her neck, but I was able to move it fairly easily. She d enied any neck stiffness. There was no obvious tardive dyskinesia and speech was as described above. SKIN: Warm and dry without evidence of rash. OBJECTIVE DATA: Includes a white count of 7.4 yesterday with hematocrit of 37, normal platelets. Bl ood gas today with pH 746, pCO2 of 30, PO2 of 82, bicarb 22, sat 95%. Basic metabolic panel shows so dium of 127, potassium 3.8, chloride 95, bicarb 20, anion gap 12, creatinine 0.4, BUN 9, glucose was 94 and 99 on subsequent check. Calcium was 7.6. BNP was 412. Urinalysis was unremarkable. ASSESSMENT/PLAN: 1. Abnormal mental status. I think this extrapyramidal symptoms that she has had in the past. She has had difficulty with her multiple medications. She is getting Cogentin on a regular basis. I do not see tardive dyskinesia at this point, but I think a head CT is quite reasonable at this time, to rule out any stroke. I do not think she needs an LP for meningitis at this time. We may need Psychi atric assistance in managing her medications or further clarification about any changes in her medica tions, including the Prolixin. 2. Chronic obstructive pulmonary disease. This appears to be stable at this time. I will continue with her nebulizers as needed, but I do not think systemic steroids are indicated. 3. long-term-acquired pneumonia. We will follow up on a CBC, though her white count was normal b efore. I think her ongoing fever and infiltrates on x-ray are sufficient. We may need a procalciton in depending on her clinical course. /[id number]/MODL
[2017-12-11] MEDS: DIVALPROEX NA 500 MG TAB PO SCH (20:45)
[2017-12-11] MEDS: QUEtiapine FUMARATE 200 MG TAB PO SCH (20:45)
[2017-12-12] MEDS ORDERED: NS 500 ML IV ONE (04:41)
[2017-12-12] MEDS: IPRATROPIUM/ALBUTEROL 3 ML DEYVIAL IH SCH (05:10)
[2017-12-12 07:30] LABS: PLATELET COUNT 142 10^3/uL (150-400)
[2017-12-12] MEDS: DOCUSATE SODIUM 100 MG CAP PO SCH ×2 (09:00→22:53)
[2017-12-12] MEDS: FLUTICASONE HFA 110 MCG MDI IH SCH (09:17)
[2017-12-12] MEDS: ENOXAPARIN 40 MG/0.4 ML SYR SC SCH (09:53)
[2017-12-12] MEDS: POLYETHYLENE GLYCOL 3350 17 GM PKT PO SCH (09:53)
[2017-12-12] MEDS ORDERED: IPRATROPIUM/ALBUTEROL 3 ML DEYVIAL IH PRN (10:40)
[2017-12-12] MEDS: BENZTROPINE MESYLATE 1 MG TAB PO SCH ×2 (11:32→22:52)
[2017-12-12] MEDS: CHOLECALCIFEROL VIT D3 1,000 UNITS TAB PO SCH (11:33)
[2017-12-12] MEDS: CALCIUM CARBONATE 500 MG CHEWABLE TAB PO SCH ×2 (11:33→22:52)
[2017-12-12] MEDS: FLUTICASONE/SALMETER 250/50MCG DISKUS IH SCH ×2 (11:43→19:04)
--- NOTE | 2017-12-12 12:03 | HOSPPROG ---
Hospitalist Progress Note Assessment/Plan: DIAGNOSES: -acute hypoxemic respiratory failure -acute intermediate acquired pneumonia left lower lobe; suspect may also have pleural effusion on the left side -COPD exacerbation -metabolic encephalopathy, acute with significant decrease in alertness -hyponatremia -severe deconditioning, gait instability, high fall risk -chronic schizophrenia PLANS: * Continue and current antibiotics at this time * Add oral steroid; will change bronchodilators to include inhaled long-acting bronchodilator and steroid and reduce use of nebs to see if we can reduce tachycardia * I have ordered a decubitus x-ray to further assess how much effusion she has some left chest and what the left lung base looks like * Avoid sedating medicines as possible * Continue to follow sodium closely, will make decision on management of hyponatremia after I see the decubitus chest x-ray * Continue her usual medicines for schizophrenia for now * Fall risk precautions, PT and OT * DVT prophylaxis SUBJECTIVE: Patient remains quite lethargic but able to converse a little bit more now. States she does not feel as short of breath and denies any headache neck pain eye pain chest pain or other pain OBJECTIVE Vitals reviewed: Remains somewhat tachycardic 105-115, stable blood pressure, still tachypneic but better in the low to mid 20s at worst so far today, no fever Cyber Crime Investigator, my review: Sinus Exam: Remains extremely lethargic and slow, though a bit more alert and talkative than yesterday she still only interacts minimally, slumped over in the bed unable to sit up straight. Is aware that she is in the hospital but not oriented yet time skin warm dry color ok resps less labored lungs decreased breath sounds at left base heart regular abd soft nondistended nontender, bowel sounds present limbs warm, slight pitting edema iv site ok Microbiology: Cultures are all remain negative so far Laboratory data: Sodium unchanged at 128 otherwise stable basic met panel, some improvement in liver enzymes, AST still at 151 With normal bilirubin Mild decrease in hemoglobin overnight at 12.3 still with 7000 neutrophils Chest x-ray today reviewed by me based on my reading of the images: Persistent left lower lobe infiltrate likely unchanged but with increasing pleural effusion on left Echocardiogram done yesterday shows no concerning abnormalities CT scan head done yesterday shows only chronic age-related changes Objective: Vital Signs Temp Pulse Resp BP Pulse Ox 36.4 C 107 H 16 106/49 L 97 12/12/17 07:41 06/10/18 09:23 12/12/17 09:23 12/12/17 07:41 12/12/17 09:23 Microbiology 12/10/17 23:40 Respiratory Panel (PCR) - Final Nasal, Sinus - Swab No Organism Detected Laboratory Results 12/12/17 05:22 12/12/17 05:22 12/11/17 12/12/17 12/13/17 06:59 06:59 06:59 Intake Total 1250 725 Output Total 950 1225 50 Balance 300 -500 -50 PT 14.5 SEC (12.0-15.0) 12/10/17 16:03 INR 1.11 (0.83-1.16) 12/10/17 16:03 - Time Spent With Patient Time Spent with Patient: greater than 35 minutes Time Spent with Patient: Greater than 35 minutes spent on this patients care, greater than 50% of time spent counseling, educating, and coordinating care regarding the above mentioned plan. ICD10 Worksheet Patient Problems: Problems Problem Status Onset Pneumonia Acute Closed left tibial fracture Acute
--- NOTE | 2017-12-12 15:37 | PDINTPN ---
Clinical Resource Nurse Progress Note Assessment/Plan: 62 F admitted with hypoxemia and abnormal mental status in setting of COPD and schizophrenia. She was altered on HD#2 and a stat team kulwant called and venereal disease control head her to ICU. In the ICU she slowly regained her usual level of consciousness while her workup was negative. She had borderline BP and tachycardia perhaps from high frequency beta agonists * Abnormal mental status- she is improving and her changes could have been from extra-pyramidal symp[toms related to her psych meds, which has occurred in the past. * COPD- she may benefit from a combination LABA/ICS in an effort to minimize her neb requirement * Hyponatremia- stable but increasing IVF may help Objective: Vital Signs Temp Pulse Resp BP Pulse Ox 36.6 C 101 H 23 H 118/55 L 97 12/12/17 12:00 12/12/17 12:00 12/12/17 12:00 12/12/17 12:00 12/12/17 12:00 Laboratory Results 12/12/17 05:22 12/12/17 05:22 12/11/17 12/12/17 12/13/17 05:59 05:59 05:59 Intake Total 1250 725 Output Total 950 1225 50 Balance 300 -500 -50 PT 14.5 SEC (12.0-15.0) 12/10/17 16:03 INR 1.11 (0.83-1.16) 12/10/17 16:03 Physical Exam - Physical Exam General Appearance: alert, no apparent distress, obese EENT: PERRL/EOMI Neck: supple Respiratory: lungs clear, normal breath sounds, decreased breath sounds, No respiratory distress, No accessory muscle use Cardiac/Chest: regular rate, rhythm, No edema Abdomen: non-tender, soft, No distended Skin: normal color, warm/dry, No cyanosis Lymphatic: no adenopathy Extremities: No pedal edema Neuro/Psych: alert, normal mood/affect, cognition abnormalities ICD10 Worksheet Patient Problems: Problems Problem Status Onset Pneumonia Acute Closed left tibial fracture Acute
[2017-12-12] MEDS ORDERED: predniSONE 20 MG TAB PO ONE (17:46)
[2017-12-12] MEDS ORDERED: NS 1,000 ML IV ONE (21:17)
[2017-12-12] MEDS ORDERED: MAGNESIUM SULF 2 GM/WATER 50 ML IV ONE (21:17)
[2017-12-12] MEDS: DIVALPROEX NA 500 MG TAB PO SCH (22:43)
[2017-12-12] MEDS: QUEtiapine FUMARATE 200 MG TAB PO SCH (22:44)
[2017-12-12] MEDS: LORazepam 2 MG/ML INJ IVP PRN (22:50)
[2017-12-13] MEDS: POTASSIUM Cl (KCl) 40 MEQ in NS 1,000 ML IV SCH ×2 (00:31→06:23)
[2017-12-13 04:39] LABS: PLATELET COUNT 146 10^3/uL (150-400)
[2017-12-13] MEDS ORDERED: NS 1,000 ML IV ONE (05:27)
[2017-12-13] MEDS: BENZTROPINE MESYLATE 1 MG TAB PO SCH ×2 (08:35→22:10)
[2017-12-13] MEDS: CALCIUM CARBONATE 500 MG CHEWABLE TAB PO SCH ×2 (08:35→22:10)
[2017-12-13] MEDS: CHOLECALCIFEROL VIT D3 1,000 UNITS TAB PO SCH (08:35)
[2017-12-13] MEDS: ENOXAPARIN 40 MG/0.4 ML SYR SC SCH (08:36)
[2017-12-13] MEDS: DOCUSATE SODIUM 100 MG CAP PO SCH ×2 (08:41→22:11)
[2017-12-13] MEDS: FLUTICASONE/SALMETER 250/50MCG DISKUS IH SCH ×2 (08:41→22:11)
[2017-12-13] MEDS ORDERED: predniSONE 20 MG TAB PO SCH ×2 (09:00→19:49)
[2017-12-13] MEDS: NS W/ 20 KCl/L 1,000 ML IV SCH ×2 (13:12→23:23)
[2017-12-13 14:12] LABS: CREATINE KINASE 2921 IU/L (0-156)
--- NOTE | 2017-12-13 14:20 | PDINTPN ---
Dog Or Animal Sitter Progress Note Assessment/Plan: 62 F admitted with hypoxemia and abnormal mental status in setting of COPD and schizophrenia. She was altered on HD#2 and a stat team kulwant called and advanced practice rn her to ICU. In the ICU she slowly regained her usual level of consciousness while her workup was negative. She had borderline BP and tachycardia perhaps from high frequency beta agonists * Abnormal mental status- she was improving, but returned to obtundation this am. I am concerned for extrapyramidal effects of her psych medications and agree with psych consult for clarification. perhaps her PM seroquel dose is too high. An ABG this am was normal without CO2 narcosis. * COPD- started adviar 12/12 in an effort to minimize her neb requirement * Hyponatremia- stable but increasing IVF may help 12/13/17 14:18 Subjective: somnolent this am Objective: Vital Signs Temp Pulse Resp BP Pulse Ox 36.8 C 103 H 22 H 108/45 L 98 12/13/17 11:31 12/13/17 11:31 12/13/17 11:31 12/13/17 11:31 12/13/17 11:31 Laboratory Results 12/13/17 03:56 12/13/17 03:56 12/12/17 12/13/17 12/14/17 05:59 05:59 05:59 Intake Total 725 1995 2142 Output Total 1225 800 200 Balance -500 1196 1943 PT 14.5 SEC (12.0-15.0) 12/10/17 16:03 INR 1.11 (0.83-1.16) 12/10/17 16:03 Physical Exam - Physical Exam General Appearance: no apparent distress, obtunded, obese EENT: PERRL/EOMI Neck: supple Respiratory: lungs clear, normal breath sounds, No respiratory distress, No accessory muscle use, No wheezing Cardiac/Chest: regular rate, rhythm, No edema Abdomen: non-tender, soft, No distended Skin: normal color, warm/dry, No cyanosis Lymphatic: no adenopathy Extremities: No pedal edema Neuro/Psych: cognition abnormalities ICD10 Worksheet Patient Problems: Problems Problem Status Onset Pneumonia Acute Closed left tibial fracture Acute
[2017-12-13] MEDS ORDERED: predniSONE 20 MG TAB PO ONE (19:49)
--- NOTE | 2017-12-13 19:49 | HOSPPROG ---
Hospitalist Progress Note Assessment/Plan: Assessment: 62-year-old F p/w acute hypoxic respiratory failure of unclear etiology c/b acute encephalopathy Plan: # acute hypoxemic respiratory failure. evidenced by tachypnea and o2 requirements up to 7LPM, as well as CPAP trial w/o significant improvement, likely 2/2 COPD as well as possibly underlying infxn (PNA) -cont on 4LPM, and, if worsening o/n, place on BiPAP # pneumonia. possible, POA, CXR w/ LLL infiltrate, as well as positive inflammatory markers -cont w/ levofloxacin, but, if visible e/o aspiration, adjust to Vanco/Zosyn to stabilize, then reassess # acute encephalopathy. evidenced by global brain dysfunction characterized as obtundation, minimal responsiveness, of unclear etiology, reportedly acute change from her baseline, potentially 2/2 toxic effects of infxn or Rx-effect -HCT w/o significant findings -check ammonia level -d/w Dr. Christiansen on rounds, we agree that a psych consult warranted to address whether any of her behavioral health Rx may need to be adjusted -elevated inflammatory markers (CPK, CRP), tachycardia, tachypnea potentially indicative of a neuroleptic malignant process, so monitor closely for fever and treat w/ benzos if worsening agitation -mental status is poor, place on IVF # hyponatremia. acute, 2/2 hypoperfusion in setting of above, resolved -check urine studies now # acute COPD exacerbation. likely contributing to above, although ABG w/o significant retention, but exp wheezes on physical exam today -given ongoing tachypnea, start scheduled duonebs and increase steroid dosing today # chronic schizophrenia. getting psych consult for med assistance # acute urinary retention. tomlinson placed diet. NPO given aspiration risk, IVF code. full ppx. high risk, lovenox 40 dispo. ADD uncertain 30 minutes of critical care time spent w/ this patient, at bedside and on team rounds, addressing issues above w/ listed providers, specifically her worsening encephalopathy which renders her critically ill, at high risk for worsening morbidity/mortality. Subjective: patient w/ worsening mentation, not responsive other than one-word answers Objective: Vital Signs Temp Pulse Resp BP Pulse Ox 36.3 C 93 24 H 101/53 L 95 12/13/17 16:00 12/13/17 18:25 12/13/17 18:25 12/13/17 16:00 12/13/17 18:25 Microbiology 12/10/17 23:40 Urine Culture - Final Unspecified Laboratory Results 12/13/17 03:56 12/13/17 03:56 12/12/17 12/13/17 12/14/17 05:59 05:59 05:59 Intake Total 725 1995 255 Output Total 1225 800 500 Balance -500 1196 2056 PT 14.5 SEC (12.0-15.0) 12/10/17 16:03 INR 1.11 (0.83-1.16) 12/10/17 16:03 - Physical Exam Constitutional: not in pain, chronically ill appearing, uncomfortable, unkempt Cardiovascular: tachycardia, edema (mild LE), No systolic murmur, No irregularly irregular Respiratory: reduced air movement (on left lateral seg), expiratory wheeze, respiratory distress (visible tachypnea), rhonchi (on left), No bronchial breath sounds Gastrointestinal: normoactive bowel sounds, soft, non-tender abdomen, no palpable masses, No distension Genitourinary: tomlinson in urethra Skin: No rash Musculoskeletal: other (no UE/LE muscular rigidity or increased tone) Neurologic: other (AAOx0), No facial droop Psychiatric: not anxious, encephalopathic, flat affect, poor insight, poor memory, other (only responds one-word answers, to tactile stimuli), No agitated ICD10 Worksheet Patient Problems: Problems Problem Status Onset Pneumonia Acute Closed left tibial fracture Acute
[2017-12-13] MEDS: IPRATROPIUM/ALBUTEROL 3 ML DEYVIAL IH SCH ×2 (20:58→22:53)
[2017-12-13] MEDS: DIVALPROEX NA 500 MG TAB PO SCH (22:10)
[2017-12-13] MEDS: QUEtiapine FUMARATE 200 MG TAB PO SCH (22:11)
[2017-12-14] MEDS: LORazepam 2 MG/ML INJ IVP PRN (00:24)
[2017-12-14] MEDS ORDERED: ACETYLCYSTEINE 10% IH/PO 4 ML VIAL ONE ×2 (16:02→22:56)
[2017-12-14 21:44] LABS: INR 1.34 (0.83-1.16); PROTIME(PATIENT) 16.8 SEC (12.0-15.0)
[2017-12-15] MEDS: FLUTICASONE/SALMETER 250/50MCG DISKUS IH SCH ×2 (04:49→09:07)
[2017-12-15] MEDS: IPRATROPIUM/ALBUTEROL 3 ML DEYVIAL IH SCH ×2 (04:49→05:15)
[2017-12-15 05:06] LABS: PLATELET COUNT 183 10^3/uL (150-400)
[2017-12-15] MEDS: CHOLECALCIFEROL VIT D3 1,000 UNITS TAB PO SCH ×2 (05:17→09:46)
[2017-12-15] MEDS: CALCIUM CARBONATE 500 MG CHEWABLE TAB PO SCH ×3 (05:17→20:21)
[2017-12-15] MEDS: BENZTROPINE MESYLATE 1 MG TAB PO SCH (05:17)
[2017-12-15] MEDS: DIVALPROEX NA 500 MG TAB PO SCH (05:18)
[2017-12-15] MEDS: ENOXAPARIN 40 MG/0.4 ML SYR SC SCH ×2 (05:18→13:06)
[2017-12-15] MEDS: DOCUSATE SODIUM 100 MG CAP PO SCH ×3 (05:18→20:21)
[2017-12-15] MEDS: POLYETHYLENE GLYCOL 3350 17 GM PKT PO SCH (05:19)
[2017-12-15] MEDS: QUEtiapine FUMARATE 200 MG TAB PO SCH (05:19)
[2017-12-15] MEDS ORDERED: ACETYLCYSTEINE 10% IH/PO 4 ML VIAL IH SCH (06:00)
[2017-12-15] MEDS ORDERED: ETOMIDATE 40 MG/20 ML INJ IVP ONE (07:47)
[2017-12-15] MEDS ORDERED: MIDAZOLAM 2 MG/2 ML VIAL IVP ONE (07:47)
[2017-12-15] MEDS ORDERED: PROPOFOL/EMULSION 1,000 MG/100 ML BOTTLE IV ONE (07:48)
[2017-12-15] MEDS: FAMOTIDINE 20 MG/NACL 50 ML IV SCH ×2 (08:43→20:56)
[2017-12-15] MEDS ORDERED: IPRATROPIUM HFA INHALER IH SCH ×2 (08:45→10:00)
[2017-12-15] MEDS ORDERED: ALBUTEROL 60 PUFFS/8 GM MDI IH SCH ×2 (08:45→10:00)
[2017-12-15] MEDS ORDERED: ALTEPLASE 2 MG VIAL IVP PRN (09:11)
--- NOTE | 2017-12-15 09:23 | PDINTPN ---
Psychology Clinician Progress Note Assessment/Plan: 62 F admitted with hypoxemia and abnormal mental status in setting of COPD and schizophrenia. She was altered on HD#2 and a stat team kulwant called and patient relations representative her to ICU. In the ICU she slowly regained her usual level of consciousness while her workup was negative. She had borderline BP and tachycardia perhaps from high frequency beta agonists * Acute respiratory failure with hypoxemia- pt found in severe resp distress with marked tachypnea so intubated (separate documentation). CXR shows new RUL infiltrate with slight increase in WBC. No clearly reported aspiration but she is at high risk. Will start Clinda (PCN allergy) and check procalcitonin. * Abnormal mental status- she was improving, but returned to obtundation this . Psych consult pending, but her MS was better today despite her respiratory issues. Prolixin held 12/14 * COPD with acute exacerbation- She was quite wheezy on exam prior to intubation. Changed prednisone to solumedrol; continue MDI * Hyponatremia- resolved. Recheck BMP now * Pnuemonia- see above. Cxs NTD Subjective: CTSP urgently this am for respirtory distress. Slow decline overnight despite improved awareness per staff mine warfare officer Objective: Vital Signs Temp Pulse Resp BP Pulse Ox 37.3 C 124 H 38 H 151/64 H 91 L 12/15/17 06:55 12/15/17 06:55 12/15/17 06:55 12/15/17 06:55 12/15/17 06:55 Laboratory Results 12/15/17 04:45 12/13/17 03:56 12/14/17 12/15/17 12/16/17 05:59 05:59 05:59 Intake Total 2556 1275 Output Total 500 725 Balance 2056 550 PT 16.8 SEC (12.0-15.0) H 12/14/17 13:50 INR 1.34 (0.83-1.16) H 12/14/17 13:50 Physical Exam - Physical Exam General Appearance: obtunded, severe distress, obese, other (answers questions, but inappropriate answers. exam before intubation) EENT: PERRL/EOMI Neck: supple Respiratory: respiratory distress, accessory muscle use, decreased breath sounds , wheezing, prolonged expiration, retractions Cardiac/Chest: regular rate, rhythm, No edema Abdomen: non-tender, soft, No distended Skin: normal color, warm/dry, No cyanosis Lymphatic: no adenopathy Extremities: No pedal edema Neuro/Psych: cognition abnormalities, No abnormal carroter II-XII ICD10 Worksheet Patient Problems: Problems Problem Status Onset Pneumonia Acute Closed left tibial fracture Acute
--- NOTE | 2017-12-15 09:50 | GPN ---
[f rep st] PROCEDURE NOTE PROCEDURE: Emergent intubation. INDICATION: Respiratory failure. CONSENT: Consent was waived due to the emergent nature of the procedure. Conscious sedation was achieved using a total of 1 mg Versed, 40 mg of etomidate. The patient tolera janet these well without complications. Next, a 7.5 endotracheal tube was easily passed through normal-moving vocal cords on the first attemp t without difficulty. There was appropriate tube condensation, chest rise, oxygenation, and color ch chong on capnography. Breath sounds were equal bilaterally without any breath sounds in the mid epiga stric region. A chest x-ray confirmed placement of the endotracheal tube. /[id number]/MODL
[2017-12-15] MEDS: CHLORHEXIDINE GLUCONATE 15 ML UDL PO SCH ×2 (10:02→20:58)
--- NOTE | 2017-12-15 10:53 | HOSPPROG ---
Hospitalist Progress Note Assessment/Plan: Assessment: 62-year-old F p/w acute hypoxic respiratory failure c/b acute encephalopathy, suspected aspiration PNA Plan: # acute hypoxemic respiratory failure. evidenced by tachypnea w/ acute worsening 12/15 AM, requiring intubatino, likely 2/2 COPD + asp PNA -requiring intubation this AM emergently by Dr. Christiansen -monitor ABG # aspiration pneumonia. LLL POA, development of RUL likely 2/2 aspiration -d/w Dr. Christiansen on team rounds, we agreed that since patient has been in hospital > 72hrs and is at risk for MRSA/Pseudomonas, we will adjust to Vanco/ Cefepime to stabilize, then reassess -send sputum Cx -failed levofloxacin tx # acute encephalopathy. evidenced by global brain dysfunction characterized as obtundation, minimal responsiveness, of unclear etiology, reportedly acute change from her baseline, potentially 2/2 toxic effects of infxn or Rx-effect -HCT w/o significant findings -uncelar if initially 2/2 psych Rx, holding per guidance from Dr. Russ, treating infxn # hyponatremia. acute, 2/2 hypoperfusion in setting of above, resolved # acute COPD exacerbation. likely contributing to above, although ABG w/o significant retention -given ongoing tachypnea, adjusted scheduled duonebs and IV steroids # chronic schizophrenia. getting psych consult once off vent # acute urinary retention. tomlinson placed diet. NPO given aspiration risk, IVF code. full ppx. high risk, lovenox 40 dispo. ADD uncertain 35 minutes of critical care time spent w/ this patient, at bedside and on team rounds, addressing issues above w/ listed providers, specifically her worsening resp failure which renders her critically ill and requiring intubation this AM, at high risk for worsening morbidity/mortality. Subjective: patient in resp distress this AM Objective: Vital Signs Temp Pulse Resp BP Pulse Ox 38.3 C 95 20 95/47 L 98 12/15/17 08:00 12/15/17 10:00 12/15/17 10:00 12/15/17 10:00 12/15/17 10:00 Laboratory Results 12/15/17 04:45 12/13/17 03:56 12/14/17 12/15/17 12/16/17 05:59 05:59 05:59 Intake Total 2556 1275 Output Total 500 725 Balance 2056 550 PT 16.8 SEC (12.0-15.0) H 12/14/17 13:50 INR 1.34 (0.83-1.16) H 12/14/17 13:50 - Physical Exam Constitutional: not in pain, chronically ill appearing, other (currently intubated/sedated), No uncomfortable Eyes: other (constricted pupils) Cardiovascular: tachycardia, No systolic murmur, No irregularly irregular, No edema Respiratory: reduced air movement (L base), rhonchi (bilat), No expiratory wheeze, No bronchial breath sounds Gastrointestinal: No normoactive bowel sounds (hyopactive bowel sounds) Psychiatric: encephalopathic, other (sedated, not responsive to tactile stimuli) ICD10 Worksheet Patient Problems: Problems Problem Status Onset Closed left tibial fracture Acute Pneumonia Acute
[2017-12-15] MEDS: CEFEPIME HCL 2 GM in NS 100 ML IV SCH ×2 (11:26→18:26)
[2017-12-15] MEDS: ALBUTEROL 60 PUFFS/8 GM MDI IH SCH ×3 (11:31→20:21)
[2017-12-15] MEDS: IPRATROPIUM HFA INHALER IH SCH ×3 (11:32→20:21)
[2017-12-15] MEDS ORDERED: ETOMIDATE 40 MG/20 ML INJ ONE (11:49)
[2017-12-15] MEDS ORDERED: MIDAZOLAM 2 MG/2 ML VIAL ONE (11:50)
[2017-12-15] MEDS: VANCOMYCIN 1.5 GM in D5W 250 ML IV SCH ×2 (12:11→23:29)
[2017-12-15] MEDS: methylPREDNISolone SOD SUCC 125 MG/2 ML VIAL IVP SCH ×3 (13:06→23:29)
[2017-12-15] MEDS: PROPOFOL/EMULSION 100 ML IV SCH (13:56)
[2017-12-15] MEDS ORDERED: CLINDAMYCIN 600 MG/DEXTROSE 50 ML IV SCH (14:00)
--- NOTE | 2017-12-15 14:59 | ASMTCMCOM ---
[facility] Case Management CM Communcation Patient Name: CONSTANZA NEELY Rpt#: [id number] MR#: [id number] Attending: Rosalind España MD Adm Date: 12/10/17 CM Note CM Note Notes: Patient encephalopic, Hospitalist considering Psychiatrist consult. Will return to [facility] on discharge. Date Signed: 12/14/2017 09:47 AM Electronically Signed By: Yarelis Huerta LCSW
[2017-12-15] MEDS: NS W/ 20 KCl/L 1,000 ML IV SCH (18:29)
[2017-12-16] MEDS: IPRATROPIUM HFA INHALER IH SCH ×7 (00:05→23:58)
[2017-12-16] MEDS: ALBUTEROL 60 PUFFS/8 GM MDI IH SCH ×7 (00:06→23:57)
[2017-12-16] MEDS: PROPOFOL/EMULSION 100 ML IV SCH ×3 (02:14→21:14)
[2017-12-16] MEDS: CEFEPIME HCL 2 GM in NS 100 ML IV SCH ×3 (02:15→18:10)
[2017-12-16 04:31] LABS: PLATELET COUNT 189 10^3/uL (150-400)
[2017-12-16] MEDS: methylPREDNISolone SOD SUCC 125 MG/2 ML VIAL IVP SCH ×2 (05:52→12:47)
[2017-12-16] MEDS ORDERED: LIDOCAINE 2% JELLY 5 ML TUBE TP ONE (08:40)
[2017-12-16] MEDS ORDERED: LIDOCAINE 1% 300 MG/30 ML SDV MISC ONE ×2 (08:40→09:20)
[2017-12-16] MEDS: FUROSEMIDE 20 MG/2 ML VIAL IVP SCH ×2 (09:46→17:03)
[2017-12-16] MEDS: ENOXAPARIN 40 MG/0.4 ML SYR SC SCH (09:48)
[2017-12-16] MEDS: FAMOTIDINE 20 MG/NACL 50 ML IV SCH ×2 (09:48→21:14)
[2017-12-16] MEDS: CHLORHEXIDINE GLUCONATE 15 ML UDL PO SCH ×2 (09:48→21:09)
[2017-12-16] MEDS: CALCIUM CARBONATE 500 MG CHEWABLE TAB PO SCH (11:52)
[2017-12-16] MEDS: DOCUSATE SODIUM 100 MG CAP PO SCH (11:52)
[2017-12-16] MEDS: POLYETHYLENE GLYCOL 3350 17 GM PKT PO SCH (11:52)
[2017-12-16] MEDS ORDERED: LIDOCAINE 1% 300 MG/30 ML SDV ONE (12:44)
[2017-12-16] MEDS ORDERED: LIDOCAINE 2% JELLY 5 ML TUBE ONE (12:45)
[2017-12-16] MEDS: VANCOMYCIN 1.5 GM in D5W 250 ML IV SCH ×2 (12:47→23:17)
[2017-12-16] MEDS: CHOLECALCIFEROL VIT D3 1,000 UNITS TAB PO SCH (13:29)
--- NOTE | 2017-12-16 13:59 | PDINTPN ---
Telephonic Case Manager Progress Note Assessment/Plan: 62 F admitted with hypoxemia and abnormal mental status in setting of COPD and schizophrenia. She was altered on HD#2 and a stat team kulwant called and house mover her to ICU. In the ICU she slowly regained her usual level of consciousness while her workup was negative. She had borderline BP and tachycardia perhaps from high frequency beta agonists * Acute respiratory failure with hypoxemia- pt found in severe resp distress with marked tachypnea so intubated 12/15 (separate documentation). CXR showed new RUL infiltrate with slight increase in WBC, but on 12/16 substantial increase in LLL opacity (pleural effusion vs infiltrate) so had bronch which revealed mild-moderate mucous plugs. No clearly reported aspiration but she is at high risk. Started abx, though PCT low, afebrile, and no WBC. Also treated with trial of lasix. . * Abnormal mental status- she was improving, but returned to obtundation 12/14. Psych consult pending, but her MS was better today despite her respiratory issues. Prolixin held 12/14; may need to resume to minimize delerium on vent. * COPD with acute exacerbation- She was quite wheezy on exam prior to intubation. Changed prednisone to solumedrol Q6, but reduced to daily on 12/15; may have been edema. continue MDI * Hyponatremia- resolved. * Pneumonia- see above. Cxs NTD critical care time 45 minutes separate from procedures Subjective: increasing oxygen requirement and worsening CXR today Objective: Vital Signs Temp Pulse Resp BP Pulse Ox 37.5 C 96 30 H 169/86 H 98 12/16/17 12:00 12/16/17 12:00 12/16/17 12:00 12/16/17 12:00 12/16/17 12:00 Microbiology 12/15/17 11:30 - Final Sputum, Induced/Suctioned Laboratory Results 12/16/17 04:05 12/16/17 04:05 12/15/17 12/16/17 12/17/17 05:59 05:59 05:59 Intake Total 1275 3265 Output Total 725 1200 Balance 550 2065 PT 16.8 SEC (12.0-15.0) H 12/14/17 13:50 INR 1.34 (0.83-1.16) H 12/14/17 13:50 Physical Exam - Physical Exam General Appearance: no apparent distress, obese EENT: PERRL/EOMI, ET tube Neck: supple Respiratory: lungs clear, decreased breath sounds, No respiratory distress, No accessory muscle use Cardiac/Chest: regular rate, rhythm, No edema Abdomen: non-tender, soft, No distended Skin: normal color, warm/dry, No cyanosis Lymphatic: no adenopathy Extremities: No pedal edema Neuro/Psych: cognition abnormalities ICD10 Worksheet Patient Problems: Problems Problem Status Onset Pneumonia Acute Closed left tibial fracture Acute
--- NOTE | 2017-12-16 14:40 | GPN ---
[f rep st] PROCEDURE NOTE DATE OF PROCEDURE: 12/16/2017 PROCEDURE: Bronchoscopy. INDICATION: Respiratory failure with worsening infiltrates on chest x-ray. CONSENT: Consent was obtained from the patient's sister by phone. Other risks and benefits of the p rocedure and conscious sedation were explained in detail and she agreed to proceed. DESCRIPTION OF PROCEDURE: Conscious sedation was achieved using topical lidocaine, as well as an exi sting propofol drip. Next, the bronchoscope was easily passed through the existing endotracheal tube . There were mild to moderate secretions within the trachea and at the left mainstem. Additional se cretions were seen in the left lower lobe and minor secretions and mucus plugs in the left upper lobe . These were easily suctioned out without much difficulty. An exploration of the right lung reveale d additional mucus plugging in the right upper lobe, but very few plugs in the right lower lobe. The mucosa appeared to be somewhat red and inflamed, but otherwise normal, and there were no endobronchi al lesions or masses or bleeding. Overall, the patient tolerated the procedure well without complica tion. /[id number]/MODL
--- NOTE | 2017-12-16 18:24 | HOSPPROG ---
Hospitalist Progress Note Assessment/Plan: Assessment: 62-year-old F p/w sepsis, pneumonia, and acute hypoxic respiratory failure c/b acute encephalopathy, suspected subsequent aspiration PNA Plan: # acute hypoxemic and hypercapnic respiratory failure. Likely 2/2 combination of initial sepsis, COPD + asp PNA, initially w/ PaO2 54, ABG prior to intubation w/ pCO2 51 and respiratory acidosis -d/w Dr. Christiansen, agree that CXR today w/ worsening bilat infiltrates warrants bronchoscopy, stopping IVF, starting diuretics, and consider broadening Abx if o2 requirement rising # aspiration pneumonia. Initial LLL POA, development of RUL likely 2/2 aspiration, both worsening on CXR today -since patient has been in hospital > 72hrs and is at risk for MRSA/Pseudomonas , D#2 Vanco/Cefepime, if requiring increased FiO2, will add metronidazole -sputum Cx pending -failed levofloxacin tx # acute encephalopathy. evidenced by global brain dysfunction characterized as obtundation, minimal responsiveness, of unclear etiology, reportedly acute change from her baseline, potentially 2/2 toxic effects of infxn or Rx-effect -HCT w/o significant findings -unclear if initially 2/2 psych Rx, holding per guidance from Dr. Russ, treating infxn # hyponatremia. acute, 2/2 hypoperfusion in setting of above, resolved # acute COPD exacerbation. likely contributing to above, pCO2 51 w/ pH 7.31 ( primary resp acidosis) -cont scheduled duonebs and IV steroids # chronic schizophrenia. getting psych consult once off vent -unclear if psych Rx initially caused NMS w/ elevated inflammatory markers, Rx currently on hold # acute urinary retention. tomlinson placed # sepsis. POA, evidenced by 2 of 3 qSOFA (tachypnea + encephalopathy) and end- organ failure (resp failure), meeting all ICDS-3 criteria diet. NPO given aspiration risk, IVF code. full ppx. high risk, lovenox 40 dispo. ADD uncertain 30 minutes of critical care time spent w/ this patient, at bedside and on team rounds, addressing issues above w/ listed providers, specifically her worsening resp failure w/ initiation of diuretics/requiring bronch, rendering her critically illat high risk for worsening morbidity/mortality. Subjective: remains unresponsive Objective: Vital Signs Temp Pulse Resp BP Pulse Ox 37.2 C 86 29 H 124/51 H 96 12/16/17 18:00 12/16/17 18:00 12/16/17 18:00 12/16/17 18:00 12/16/17 18:00 Microbiology 12/15/17 11:30 - Final Sputum, Induced/Suctioned Laboratory Results 12/16/17 04:05 12/16/17 04:05 12/15/17 12/16/17 12/17/17 05:59 05:59 05:59 Intake Total 1275 3265 1449 Output Total 725 1200 1875 Balance 550 2065 -426 PT 16.8 SEC (12.0-15.0) H 12/14/17 13:50 INR 1.34 (0.83-1.16) H 12/14/17 13:50 - Physical Exam Constitutional: chronically ill appearing, obese, unkempt Eyes: other (dilated pupils, reactive to light) Cardiovascular: tachycardia, No systolic murmur, No irregularly irregular, No edema Respiratory: reduced air movement (bilat bases), rhonchi (bilat), No expiratory wheeze, No bronchial breath sounds Gastrointestinal: no palpable masses, No normoactive bowel sounds (hypoactive bowel sounds) Musculoskeletal: other (no ridigity, normal bulk/tone) Psychiatric: encephalopathic ICD10 Worksheet Patient Problems: Problems Problem Status Onset Closed left tibial fracture Acute Pneumonia Acute
[2017-12-17] MEDS: CEFEPIME HCL 2 GM in NS 100 ML IV SCH ×3 (02:52→18:16)
[2017-12-17] MEDS: LORazepam 2 MG/ML INJ IVP PRN (02:52)
[2017-12-17] MEDS: PROPOFOL/EMULSION 100 ML IV SCH ×5 (02:52→20:37)
[2017-12-17] MEDS: ALBUTEROL 60 PUFFS/8 GM MDI IH SCH ×5 (04:15→20:16)
[2017-12-17] MEDS: IPRATROPIUM HFA INHALER IH SCH ×5 (04:16→20:17)
--- NOTE | 2017-12-17 08:24 | PDINTPN ---
Traffic Analyst Progress Note Assessment/Plan: Assessment: 62 F admitted with hypoxemia and abnormal mental status in setting of COPD and schizophrenia. She was altered on HD#2 and a stat team kulwant called and spinner hydraulic her to ICU. In the ICU she slowly regained her usual level of consciousness while her workup was negative. She had borderline BP and tachycardia perhaps from high frequency beta agonists * Acute respiratory failure with hypoxemia- pt found in severe resp distress with marked tachypnea so intubated 12/15 (separate documentation). CXR showed new RUL infiltrate with slight increase in WBC, but on 12/16 substantial increase in LLL opacity (pleural effusion vs infiltrate) so had bronch which revealed mild-moderate mucous plugs. No clearly reported aspiration but she is at high risk. Still with high FiO2 and peep requirements -will wean peep and FiO2 as tolerated -not ready to assess for extubation yet * Abnormal mental status- she was improving, but returned to obtundation 12/14. Psych consult pending, but her MS was better today despite her respiratory issues. Prolixin held 12/14; may need to resume to minimize delerium on vent. * COPD with acute exacerbation- She was quite wheezy on exam prior to intubation. -continue Solu-Medrol -continue frequent nebulized treatments * Hyponatremia- resolved. * Pneumonia- chest x-ray with dense consolidation left -will recheck chest x-ray today * VT prophylaxis * Stress ulcer prophylaxis * Nutrition * Sedation-adequate Subjective: Sedated on mechanical ventilation Objective: Vital Signs Temp Pulse Resp BP Pulse Ox 37.4 C 85 27 H 110/54 L 100 12/17/17 00:00 12/17/17 08:05 12/17/17 08:05 12/17/17 06:00 12/17/17 08:05 Microbiology 12/16/17 13:50 Gram Stain - Final Lung Bilateral - Bronchial Washings 12/16/17 13:50 Mycobacterial Smear (GUICHO) - Final Lung Bilateral - Tissue 12/15/17 11:30 - Final Sputum, Induced/Suctioned Laboratory Results 12/16/17 04:05 12/16/17 04:05 12/16/17 12/17/17 12/18/17 05:59 05:59 05:59 Intake Total 3265 3118 Output Total 1200 3400 Balance 2065 -282 PT 16.8 SEC (12.0-15.0) H 12/14/17 13:50 INR 1.34 (0.83-1.16) H 12/14/17 13:50 Laboratory Results 12/16/17 04:05 12/16/17 04:05 12/17/17 04:10 Patient Temperature 37.0 DEGREES DEGREES pCO2 41 mmHg H mmHg (34 - 38) pO2 84 mmHg H mmHg (65 - 75) Total CO2 30 mEq/L H mEq/L (23 - 27) ABG pH 7.46 H (7.35 - 7.45) ABG PO2/FiO2 Ratio 140 RATIO RATIO ABG HCO3 29 mEq/L H mEq/L (22 - 26) ABG O2 Saturation 96 % H % (92 - 95) ABG Base Excess 5.1 mEq/L H mEq/L (-2.5 - 2.5) O2 Concentration % 60 % % Respiration Rate 26 Set Respiration Rate 15 Assist Control YES Tidal Volume 400 End Tidal CO2 37 PEEP 10 12/16/17 13:50 Mycobacterial Smear (GUICHO) - Final Lung Bilateral - Tissue Mycobacterial Culture - Pending 12/16/17 13:50 Gram Stain - Final Lung Bilateral - Bronchial Washings Bronchial Washings Culture - Pending 12/15/17 11:30 - Final Sputum, Induced/Suctioned Sputum Culture - Preliminary - Time Spent With Patient Time Spent With Patient: 35 min of critical care time spent with patient. Case discussed with Nursing and Respiratory therapy Physical Exam - Physical Exam General Appearance: No alert (Sedated) EENT: PERRL/EOMI, ET tube Neck: non-tender Respiratory: crackles (Bibasilar left greater than right), prolonged expiration , No lungs clear, No respiratory distress, No wheezing Cardiac/Chest: normal peripheral pulses, regular rate, rhythm Peripheral Pulses: 2+: carotid (R), carotid (L), femoral (R), femoral (L), dorsalis-pedis (R), dorsalis-pedis (L) Abdomen: normal bowel sounds, non-tender, soft Pelvic Exam: deferred Rectal: deferred Skin: normal color, warm/dry Extremities: normal range of motion, non-tender, normal inspection, normal capillary refill Neuro/Psych: No alert ICD10 Worksheet Patient Problems: Problems Problem Status Onset Pneumonia Acute Closed left tibial fracture Acute
[2017-12-17] MEDS: CHLORHEXIDINE GLUCONATE 15 ML UDL PO SCH ×2 (08:33→20:35)
[2017-12-17] MEDS: FAMOTIDINE 20 MG/NACL 50 ML IV SCH ×2 (08:33→20:37)
[2017-12-17] MEDS: CHOLECALCIFEROL VIT D3 1,000 UNITS TAB TUBE SCH (08:33)
[2017-12-17] MEDS: ENOXAPARIN 40 MG/0.4 ML SYR SC SCH (08:33)
[2017-12-17] MEDS: FUROSEMIDE 20 MG/2 ML VIAL IVP SCH ×2 (08:33→17:05)
[2017-12-17] MEDS: methylPREDNISolone SOD SUCC 125 MG/2 ML VIAL IVP SCH (08:34)
[2017-12-17] MEDS ORDERED: FUROSEMIDE 20 MG/2 ML VIAL IVP ONE (10:04)
[2017-12-17] MEDS: VANCOMYCIN 1.5 GM in D5W 250 ML IV SCH ×2 (10:52→22:41)
[2017-12-17 12:38] LABS: PLATELET COUNT 306 10^3/uL (150-400)
--- NOTE | 2017-12-17 14:32 | ASMTCMCOM ---
CM Note CM Note Notes: Patient has worsening respiratory failure with initiation of diuretics, requiring bronch, rendering her critically ill and at high risk for worsening morbidity/mortality. Patient remains unresponsive. CM will follow. Date Signed: 12/17/2017 02:31 PM Electronically Signed By:Teressa Wang LCSW
[2017-12-17] MEDS ORDERED: LIDOCAINE 1% 300 MG/30 ML SDV ONE (15:35)
--- NOTE | 2017-12-17 16:56 | PDRADPN ---
Radiology Procedure Note Date of Procedure: 12/17/17 Radiologist: Pascual De Anda Anesthesia: Local (Specify) Pre-op Diagnosis: parapneumonic effusion Post-op Diagnosis: same Indication: dx/tx Procedure: US guided thoracentesis, left Finding(s): simple orange tinged noncloudy fluid x 900mL aspirated. min residual. Inf/Abcess present in the surg proc area at time of surgery?: No Complications: none
--- NOTE | 2017-12-17 18:06 | HOSPPROG ---
Hospitalist Progress Note Assessment/Plan: Assessment: 62-year-old F p/w sepsis, pneumonia and acute encephalopathy c/b acute hypoxic respiratory failure 2/2 suspected subsequent aspiration PNA and development of suspected parapneumonic effusion Plan: # acute hypoxemic and hypercapnic respiratory failure. Likely 2/2 combination of initial sepsis, COPD + asp PNA + worsening pleural effusion despite initiation of diuretics on 12/16 -continue lasix 40mg IV bid -d/w Dr. Bazan, recommends diagnostic/therapeutic thora today -required increase in FiO2 to 60% o/n, RT adjusting settings s/p ABG 7.46/41/84 # aspiration pneumonia. Initial LLL POA, development of subsequent RUL likely 2/ 2 aspiration, both worsening on CXR today -since patient has been in hospital > 72hrs and is at risk for MRSA/Pseudomonas , D#3 Vanco/Cefepime -sputum Cx pending -failed levofloxacin tx -getting thora Cx sample today # acute encephalopathy. POA and unclear etiology, reportedly acute change from her baseline, potentially 2/2 toxic effects of infxn o+/- Rx-effect or neuroleptic malignant syndrome -HCT w/o significant findings -unclear if initially 2/2 psych Rx, d/w Dr. Russ of psych, she recommending holding all psych Rx given potential for NMS (which could have potentiated all of the autonomic findings PRIOR to developing asp PNA, including fever/tachypnea /tachycardia/leukocytosis) -reconsult w/ psych once she is extubated # hyponatremia. acute, 2/2 hypoperfusion in setting of above, resolved # acute COPD exacerbation. POA, likely contributing to above, pCO2 51 w/ pH 7.31 (primary resp acidosis) -cont scheduled duonebs and IV steroids # chronic schizophrenia. get psych consult once off vent -unclear if psych Rx initially caused NMS w/ elevated inflammatory markers, Rx currently on hold # acute urinary retention. tomlinson placed # sepsis. POA, evidenced by 2 of 3 qSOFA (tachypnea + encephalopathy) and end- organ failure (resp failure), meeting all ICDS-3 criteria # acute demand ischemia. 2/2 worsening resp failure, trop downtrending, Echo w/ o focal wall motion abnl diet. OGT TF code. full ppx. high risk, lovenox 40 dispo. ADD uncertain 30 minutes of critical care time spent w/ this patient, at bedside and on team rounds, addressing issues above w/ listed providers, specifically her resp failure and worsening effusion requiring intervention, rendering her critically ill and at high risk for worsening morbidity/mortality. Subjective: intubated, sedated Objective: Vital Signs Temp Pulse Resp BP Pulse Ox 37.6 C 84 22 H 114/96 H 96 12/17/17 17:43 12/17/17 17:43 12/17/17 17:43 12/17/17 17:43 12/17/17 17:43 Microbiology 12/16/17 13:50 Gram Stain - Final Lung Bilateral - Bronchial Washings 12/15/17 11:30 - Final Sputum, Induced/Suctioned Sputum Culture - Final 12/16/17 13:50 Mycobacterial Smear (GUICHO) - Final Lung Bilateral - Tissue Laboratory Results 12/17/17 11:00 12/17/17 11:00 12/16/17 12/17/17 12/18/17 05:59 05:59 05:59 Intake Total 3265 3118 1273 Output Total 1200 3400 4100 Balance 2065 -282 -2827 PT 16.8 SEC (12.0-15.0) H 12/14/17 13:50 INR 1.34 (0.83-1.16) H 12/14/17 13:50 - Physical Exam Constitutional: no apparent distress, chronically ill appearing, unkempt, No uncomfortable Eyes: other (fixed centrally, reactive) Ears, Nose, Mouth, Throat: other (ET/OGT in place) Cardiovascular: No systolic murmur, No irregularly irregular, No tachycardia, No edema Respiratory: reduced air movement (L base), rhonchi (bilat), No expiratory wheeze Gastrointestinal: normoactive bowel sounds, No distension Musculoskeletal: other (no muscular rigidity or increased tone bilat UE/LE) Psychiatric: encephalopathic, other (sedated) ICD10 Worksheet Patient Problems: Problems Problem Status Onset Pneumonia Acute Closed left tibial fracture Acute
[2017-12-18] MEDS: ALBUTEROL 60 PUFFS/8 GM MDI IH SCH ×7 (00:13→23:22)
[2017-12-18] MEDS: IPRATROPIUM HFA INHALER IH SCH ×7 (00:13→23:22)
[2017-12-18] MEDS: CEFEPIME HCL 2 GM in NS 100 ML IV SCH ×3 (02:53→18:15)
[2017-12-18 04:38] LABS: PLATELET COUNT 344 10^3/uL (150-400)
[2017-12-18] MEDS: POTASSIUM Cl (KCl) 100 ML IV SCH ×2 (06:04→06:05)
[2017-12-18] MEDS: CHLORHEXIDINE GLUCONATE 15 ML UDL PO SCH ×2 (08:07→20:22)
[2017-12-18] MEDS: CHOLECALCIFEROL VIT D3 1,000 UNITS TAB TUBE SCH (08:07)
[2017-12-18] MEDS: FAMOTIDINE 20 MG/NACL 50 ML IV SCH (08:07)
[2017-12-18] MEDS: ENOXAPARIN 40 MG/0.4 ML SYR SC SCH (08:07)
[2017-12-18] MEDS: FUROSEMIDE 20 MG/2 ML VIAL IVP SCH ×2 (08:07→15:44)
[2017-12-18] MEDS: methylPREDNISolone SOD SUCC 125 MG/2 ML VIAL IVP SCH (08:07)
--- NOTE | 2017-12-18 08:49 | PDINTPN ---
Drum Sealer Progress Note Assessment/Plan: Assessment: 62 F admitted with hypoxemia and abnormal mental status in setting of COPD and schizophrenia. She was altered on HD#2 and a stat team kulwant called and house mover supervisor her to ICU. In the ICU she slowly regained her usual level of consciousness while her workup was negative. She had borderline BP and tachycardia perhaps from high frequency beta agonists * Acute respiratory failure with hypoxemia- pt found in severe resp distress with marked tachypnea so intubated 12/15 (separate documentation). CXR showed new RUL infiltrate with slight increase in WBC, but on 12/16 substantial increase in LLL opacity (pleural effusion vs infiltrate) so had bronch which revealed mild-moderate mucous plugs. No clearly reported aspiration but she is at high risk. Improved -peep is down to 5. Will continue to wean FiO2 as tolerated. * Pleural effusion-status post thoracentesis. 900 mL of clear orange fluid removed. Feel this is more likely a transudate -await cultures * Abnormal mental status- she was improving, but returned to obtundation 12/14. Psych consult pending, but her MS was better today despite her respiratory issues. Prolixin held 12/14; may need to resume to minimize delerium on vent. * COPD with acute exacerbation- She was quite wheezy on exam prior to intubation. -continue Solu-Medrol -continue frequent nebulized treatments * Hyponatremia- resolved. * Pneumonia- chest x-ray with dense consolidation left. Mostly unchanged -continue antibiotics * VT prophylaxis * Stress ulcer prophylaxis * Nutrition * Sedation-adequate Subjective: Sedated on mechanical ventilation Objective: Vital Signs Temp Pulse Resp BP Pulse Ox 37.3 C 91 30 H 143/73 H 91 L 12/18/17 08:00 12/18/17 08:00 12/18/17 08:00 12/18/17 08:00 12/18/17 08:00 Microbiology 12/17/17 15:17 Gram Stain - Final Thoracic Fluid - Aspirate 12/16/17 13:50 Gram Stain - Final Lung Bilateral - Bronchial Washings 12/15/17 11:30 - Final Sputum, Induced/Suctioned Sputum Culture - Final Laboratory Results 12/18/17 04:25 12/18/17 04:25 12/17/17 12/18/17 12/19/17 05:59 05:59 05:59 Intake Total 3118 2556 Output Total 3403 6200 325 Balance -282 -3644 -325 PT 16.8 SEC (12.0-15.0) H 12/14/17 13:50 INR 1.34 (0.83-1.16) H 12/14/17 13:50 Laboratory Results 12/18/17 04:25 12/18/17 04:25 12/17/17 12/17/17 17:22 15:17 Fluid [place] % 80 % % Fl Pathologist Review Pending Pleural Fluid Source PLEURAL Pleural Color ORANGE H Pleural Appearance CLOUDY H Pleural pH 7.5 (6.8 - 7.6) Pleural WBC 5957 /mm3 /mm3 Pleural RBC 9296 /MM3 /MM3 Pleural Lymphocytes % 20 % % Pleural Total Protein 3.4 g/dL g/dL Pleural LDH 5060 IU/L IU/L Pleural Glucose 127 mg/dL H mg/dL (55 - 113) 12/17/17 15:17 Gram Stain - Final Thoracic Fluid - Aspirate Body Fluid Culture - Pending Chest [id number] by myself. Endotracheal tube in good position. Left PICC line in place. Left lower consolidation is mostly unchanged. Likely pleural effusion still present - Time Spent With Patient Time Spent With Patient: 35 min of critical care time spent with patient. Case discussed with Nursing and Respiratory therapy Physical Exam - Physical Exam General Appearance: WD/WN, other (Sedated), No alert EENT: PERRL/EOMI, ET tube Neck: non-tender, full range of motion Respiratory: crackles (Bibasilar left greater than right.), No respiratory distress, No wheezing Cardiac/Chest: normal peripheral pulses, regular rate, rhythm, systolic murmur Peripheral Pulses: 2+: carotid (R), carotid (L), femoral (R), femoral (L), dorsalis-pedis (R), dorsalis-pedis (L) Abdomen: normal bowel sounds, non-tender, soft Pelvic Exam: deferred Rectal: deferred Skin: normal color, warm/dry Extremities: normal range of motion, non-tender, normal inspection, normal capillary refill Neuro/Psych: No alert ICD10 Worksheet Patient Problems: Problems Problem Status Onset Pneumonia Acute Closed left tibial fracture Acute
[2017-12-18] MEDS: VANCOMYCIN 1.5 GM in D5W 250 ML IV SCH (10:42)
--- NOTE | 2017-12-18 12:54 | HOSPPROG ---
Hospitalist Progress Note Assessment/Plan: Assessment: 62-year-old F p/w sepsis, pneumonia and acute encephalopathy c/b acute hypoxic respiratory failure 2/2 suspected subsequent aspiration PNA and development of suspected parapneumonic effusion Plan: # acute hypoxemic and hypercapnic respiratory failure. in the setting of chronic copd with acute exacerbation as well as aspiration pna and pleural effusion leading to acute worsening. Currently ventilated since 12/15. Has had thoracentesis and bronch, continued on IV lasix. # copd with acute exacerbation: as above, continue BDs and steroids # aspiration pna: on personal review of most recent cxr, dense LLL infiltrate appears to be slightly improved from prior, currently on cefepime and vanco day 4, will dc vanco at this time given no MRSA on culture # acute encephalopathy: was present on admission and then improved initially, currently intubated and sedated and therefore unable to assess, there was a concern for NMS previously and for that reason her psych meds were all held, psych will need to be reconsulted when extubated # chronic schizophrenia: with significant EPS as a result of her medications, as above # acute urinary retention: tomlinson placed, will need to re-evaluate post extubation # sepsis: POA and improved, still with elevated wbc, 2/2 above # elevated trop: presumed 2/2 demand in setting of sepsis, hypoxia. Echo w/o focal wall motion abnormality. Peaked at 0.8 # IP status, high risk Patient new to my care. Care plan reviewed with Dr. Bazan and multidisciplinary care team. > 30 min critical care time spent in review/treatment of above Subjective: no significant overnight events, patient remains intubated/sedated Objective: Vital Signs Temp Pulse Resp BP Pulse Ox 37.5 C 74 23 H 131/45 H 95 12/18/17 11:35 12/18/17 11:35 12/18/17 11:35 12/18/17 10:00 12/18/17 11:35 Microbiology 12/17/17 15:17 Gram Stain - Final Thoracic Fluid - Aspirate 12/16/17 13:50 Gram Stain - Final Lung Bilateral - Bronchial Washings 12/15/17 11:30 - Final Sputum, Induced/Suctioned Sputum Culture - Final Laboratory Results 12/18/17 04:25 12/18/17 04:25 12/17/17 12/18/17 12/19/17 05:59 05:59 05:59 Intake Total 3114 2554 Output Total 3611 5105 1751 Tdcicwy -137 -3019 -3244 PT 16.8 SEC (12.0-15.0) H 12/14/17 13:50 INR 1.34 (0.83-1.16) H 12/14/17 13:50 intubated sedated anicteric ett in place rrr systolic murmur coarse bs soft nt nd trace ble edema warm dry well perfused ICD10 Worksheet Patient Problems: Problems Problem Status Onset Closed left tibial fracture Acute Pneumonia Acute
[2017-12-18] MEDS: FAMOTIDINE 20 MG TAB TUBE SCH (20:21)
[2017-12-19] MEDS: LORazepam 2 MG/ML INJ IVP PRN (01:51)
[2017-12-19] MEDS: CEFEPIME HCL 2 GM in NS 100 ML IV SCH ×3 (03:36→18:28)
[2017-12-19 04:26] LABS: PLATELET COUNT 386 10^3/uL (150-400)
[2017-12-19] MEDS: ALBUTEROL 60 PUFFS/8 GM MDI IH SCH ×6 (05:03→23:44)
[2017-12-19] MEDS: IPRATROPIUM HFA INHALER IH SCH ×6 (05:03→23:43)
[2017-12-19] MEDS: POTASSIUM Cl (KCl) 100 ML IV SCH ×2 (05:10→05:11)
[2017-12-19] MEDS: FAMOTIDINE 20 MG TAB TUBE SCH ×2 (08:36→20:32)
[2017-12-19] MEDS: CHOLECALCIFEROL VIT D3 1,000 UNITS TAB TUBE SCH (08:36)
[2017-12-19] MEDS: ENOXAPARIN 40 MG/0.4 ML SYR SC SCH (08:38)
[2017-12-19] MEDS: FUROSEMIDE 20 MG/2 ML VIAL IVP SCH ×2 (08:38→16:33)
[2017-12-19] MEDS: CHLORHEXIDINE GLUCONATE 15 ML UDL PO SCH ×2 (08:38→20:32)
[2017-12-19] MEDS: methylPREDNISolone SOD SUCC 125 MG/2 ML VIAL IVP SCH (08:43)
--- NOTE | 2017-12-19 09:13 | PDINTPN ---
Materials And Processes Manager Progress Note Assessment/Plan: Assessment: 62 F admitted with hypoxemia and abnormal mental status in setting of COPD and schizophrenia. She was altered on HD#2 and a stat team kulwant called and tool machine setup operator her to ICU. In the ICU she slowly regained her usual level of consciousness while her workup was negative. She had borderline BP and tachycardia perhaps from high frequency beta agonists * Acute respiratory failure with hypoxemia- pt found in severe resp distress with marked tachypnea so intubated 12/15 (separate documentation). CXR showed new RUL infiltrate with slight increase in WBC, but on 12/16 substantial increase in LLL opacity (pleural effusion vs infiltrate) so had bronch which revealed mild-moderate mucous plugs. No clearly reported aspiration but she is at high risk. Continues to improve. FiO2 down to 40% and peep is at 5 -not extubated will yet secondary to mental status * Pleural effusion-status post thoracentesis. 900 mL of clear orange fluid removed. Feel this is more likely a transudate -await cultures * Abnormal mental status- not improving Psych consult pending, but her MS was better today despite her respiratory issues. Prolixin held 12/14; -will restart Prolixin * COPD with acute exacerbation -continue Solu-Medrol -continue frequent nebulized treatments * Hyponatremia- resolved. * Pneumonia- chest x-ray with dense consolidation left. Mostly unchanged -continue antibiotics * VT prophylaxis * Stress ulcer prophylaxis * Nutrition * Sedation-adequate Subjective: Obtunded despite being off sedation Objective: Vital Signs Temp Pulse Resp BP Pulse Ox 37.4 C 86 24 H 128/58 H 96 12/19/17 08:19 12/19/17 08:19 12/19/17 08:19 12/19/17 08:00 12/19/17 08:19 Microbiology 12/16/17 13:50 Gram Stain - Final Lung Bilateral - Bronchial Washings 12/17/17 15:17 Gram Stain - Final Thoracic Fluid - Aspirate Laboratory Results 12/19/17 04:00 12/19/17 04:00 12/18/17 12/19/17 12/20/17 05:59 05:59 05:59 Intake Total 2556 2275.8 Output Total 6200 5175 200 Balance -3644 -2899.2 -200 PT 16.8 SEC (12.0-15.0) H 12/14/17 13:50 INR 1.34 (0.83-1.16) H 12/14/17 13:50 Chest [id number] by myself. Endotracheal tube in good position. PICC line in good position. Improved left basilar infiltrate - Time Spent With Patient Time Spent With Patient: 35 min of critical care time spent with patient Case discussed with Respiratory therapy and Nursing Physical Exam - Physical Exam General Appearance: obtunded, No alert EENT: PERRL/EOMI, ET tube Neck: non-tender Respiratory: crackles (Right), prolonged expiration, No accessory muscle use, No wheezing Cardiac/Chest: normal peripheral pulses, regular rate, rhythm Peripheral Pulses: 2+: carotid (R), carotid (L), femoral (R), femoral (L), dorsalis-pedis (R), dorsalis-pedis (L) Abdomen: normal bowel sounds, non-tender, soft Pelvic Exam: deferred Rectal: deferred Skin: normal color, warm/dry Extremities: non-tender Neuro/Psych: No alert ICD10 Worksheet Patient Problems: Problems Problem Status Onset Pneumonia Acute Closed left tibial fracture Acute
--- NOTE | 2017-12-19 14:46 | HOSPPROG ---
Hospitalist Progress Note Assessment/Plan: Assessment: 62-year-old F p/w sepsis, pneumonia and acute encephalopathy c/b acute hypoxic respiratory failure 2/2 suspected subsequent aspiration PNA and development of suspected parapneumonic effusion Plan: # acute hypoxemic and hypercapnic respiratory failure. in the setting of chronic copd with acute exacerbation as well as aspiration pna and pleural effusion leading to acute worsening. Currently ventilated since 12/15. Has had thoracentesis and bronch, continued on IV lasix. Continues to be unable to be extubated at least in part due to mental status # copd with acute exacerbation: as above, continue BDs and steroids # aspiration pna: on personal review of most recent cxr, dense LLL infiltrate appears to be slightly improved from prior, currently on cefepime and s/p 4 days of vanc # acute encephalopathy: was present on admission and then improved initially, currently intubated and sedated and therefore unable to assess, there was a concern for NMS previously and for that reason her psych meds were all held, psych will need to be reconsulted when extubated # chronic schizophrenia: with significant EPS as a result of her medications, as above # acute urinary retention: tomlinson placed, will need to re-evaluate post extubation # sepsis: POA and improved, still with elevated wbc, 2/2 above # elevated trop: presumed 2/2 demand in setting of sepsis, hypoxia. Echo w/o focal wall motion abnormality. Peaked at 0.8 # IP status, high risk Patient new to my care. Care plan reviewed with Dr. Bazan and multidisciplinary care team. > 30 min critical care time spent in review/treatment of above Subjective: no significant overnight events, patient not having improvement in ability to respond to commands thus far Objective: Vital Signs Temp Pulse Resp BP Pulse Ox 37.4 C 89 25 H 117/42 L 96 12/19/17 11:59 12/19/17 14:00 12/19/17 14:00 12/19/17 14:00 12/19/17 14:00 Microbiology 12/16/17 13:50 Gram Stain - Final Lung Bilateral - Bronchial Washings 12/17/17 15:17 Gram Stain - Final Thoracic Fluid - Aspirate Laboratory Results 12/19/17 04:00 12/19/17 04:00 12/18/17 12/19/17 12/20/17 05:59 05:59 05:59 Intake Total 9393 2275.8 Output Total 0220 5175 1925 Balance -3644 -2899.2 -1925 PT 16.8 SEC (12.0-15.0) H 12/14/17 13:50 INR 1.34 (0.83-1.16) H 12/14/17 13:50 intubated sedated anicteric ett in place rrr systolic murmur coarse bs soft nt nd trace ble edema warm dry well perfused ICD10 Worksheet Patient Problems: Problems Problem Status Onset Pneumonia Acute Closed left tibial fracture Acute
[2017-12-19] MEDS: BENZTROPINE MESYLATE 1 MG TAB TUBE SCH (20:32)
[2017-12-19] MEDS ORDERED: PROTOCOL MAGNESIUM 1 DOSE IV PRN (23:27)
[2017-12-19] MEDS ORDERED: PROTOCOL POTASSIUM 1 DOSE MISC PRN (23:27)
[2017-12-20] MEDS: POTASSIUM Cl (KCl) 50 ML IV SCH ×6 (00:01→16:14)
[2017-12-20] MEDS: CEFEPIME HCL 2 GM in NS 100 ML IV SCH ×3 (02:50→18:36)
[2017-12-20] MEDS: ALBUTEROL 60 PUFFS/8 GM MDI IH SCH ×6 (04:00→23:58)
[2017-12-20] MEDS: IPRATROPIUM HFA INHALER IH SCH ×6 (04:00→23:58)
[2017-12-20 04:58] LABS: PLATELET COUNT 454 10^3/uL (150-400)
[2017-12-20] MEDS: BENZTROPINE MESYLATE 1 MG TAB TUBE SCH ×2 (09:01→21:41)
[2017-12-20] MEDS: ENOXAPARIN 40 MG/0.4 ML SYR SC SCH (09:01)
[2017-12-20] MEDS: CHLORHEXIDINE GLUCONATE 15 ML UDL PO SCH ×2 (09:02→20:27)
[2017-12-20] MEDS: FAMOTIDINE 20 MG TAB TUBE SCH ×2 (09:02→21:41)
[2017-12-20] MEDS: methylPREDNISolone SOD SUCC 125 MG/2 ML VIAL IVP SCH (09:02)
[2017-12-20] MEDS: FUROSEMIDE 20 MG/2 ML VIAL IVP SCH ×2 (09:02→15:24)
[2017-12-20] MEDS: CHOLECALCIFEROL VIT D3 1,000 UNITS TAB TUBE SCH (09:02)
--- NOTE | 2017-12-20 11:54 | HOSPPROG ---
Hospitalist Progress Note Assessment/Plan: Assessment: 62-year-old F p/w sepsis, pneumonia and acute encephalopathy c/b acute hypoxic respiratory failure 2/2 suspected subsequent aspiration PNA and development of suspected parapneumonic effusion Plan: # acute hypoxemic and hypercapnic respiratory failure. in the setting of chronic copd with acute exacerbation as well as aspiration pna and pleural effusion leading to acute worsening. Currently ventilated since 12/15. Has had thoracentesis and bronch, continued on IV lasix. Will attempt to extubated today # leukocytosis: wbc continues to elevate, sepsis POA, presumably 2/2 pneumonia as below # copd with acute exacerbation: as above, continue BDs and steroids # aspiration pna: on personal review of CXR from today, noted to have stable dense BLL infiltrates with likely combination of atelectasis and pna, currently on cefepime and s/p 4 days of vanc # acute encephalopathy: was present on admission and then improved initially, currently intubated and sedated and therefore unable to assess, there was a concern for NMS previously and for that reason her prolixin was being held but has now been resumed on 12/19, psych will need to be reconsulted when extubated. consider discontinuing prolixin if concerns for NMS recur. # chronic schizophrenia: with significant EPS as a result of her medications, resumed on prolixin and benztropine as above # acute urinary retention: tomlinson placed, will need to re-evaluate post extubation # sepsis: POA and improved, still with elevated wbc, 2/2 above # elevated trop: presumed 2/2 demand in setting of sepsis, hypoxia. Echo w/o focal wall motion abnormality. Peaked at 0.8 # IP status, high risk Care plan reviewed with Dr. Lopez and multidisciplinary care team. > 30 min critical care time spent in review/treatment of above Subjective: no significant overnight events, patient remains intubated Objective: Vital Signs Temp Pulse Resp BP Pulse Ox 37.2 C 101 H 13 109/43 L 99 12/20/17 07:51 12/20/17 10:00 12/20/17 10:00 12/20/17 10:00 12/20/17 10:00 Microbiology 12/16/17 13:50 Gram Stain - Final Lung Bilateral - Bronchial Washings 12/17/17 15:17 Gram Stain - Final Thoracic Fluid - Aspirate Laboratory Results 12/20/17 04:15 12/20/17 04:15 12/19/17 12/20/17 12/21/17 05:59 05:59 05:59 Intake Total 2275.8 2752 Output Total 5175 4085 850 Balance -2899.2 -1333 -850 PT 16.8 SEC (12.0-15.0) H 12/14/17 13:50 INR 1.34 (0.83-1.16) H 12/14/17 13:50 intubated sedated anicteric ett in place rrr systolic murmur coarse bs soft nt nd trace ble edema warm dry well perfused ICD10 Worksheet Patient Problems: Problems Problem Status Onset Pneumonia Acute Closed left tibial fracture Acute
--- NOTE | 2017-12-20 13:38 | PDINTPN ---
Seam Sewer Progress Note Assessment/Plan: Assessment: 62 F admitted with hypoxemia and abnormal mental status in setting of COPD and schizophrenia. She was altered on HD#2 and a stat team was called and gum remover her to ICU. In the ICU she slowly regained her usual level of consciousness while her workup was negative. She had borderline BP and tachycardia perhaps from high frequency beta agonists * Acute respiratory failure with hypoxemia- pt found in severe resp distress with marked tachypnea so intubated 12/15 (separate documentation). CXR showed new RUL infiltrate with slight increase in WBC, but on 12/16 substantial increase in LLL opacity (pleural effusion vs infiltrate) so had bronch which revealed mild-moderate mucous plugs. No clearly reported aspiration but she is at high risk. Continues to improve, although WBC is up without bandemia or fever. FiO2 down to 40% and peep is at 5 -not extubated will yet secondary to mental status, high VE on CPAP. * Pleural effusion-status post thoracentesis 12/17. 900 mL of clear orange fluid removed. Feel this is more likely a transudate -await cultures * Abnormal mental status- not improving Psych consult pending, but her MS was better today despite her respiratory issues. Prolixin held 12/14, then restarted COPD with acute exacerbation -continue frequent nebulized treatments * Hyponatremia- resolved. * Pneumonia- chest x-ray with dense consolidation left. Mostly unchanged * VT prophylaxis * Stress ulcer prophylaxis * Nutrition * Sedation-adequate Plan: Continue Cefepime. Decrease Solumedrol. Repeat CXR. Consider extubation tomorrow if unchanged/improved. 12/20/17 15:33 12/20/17 15:34 Subjective: Intubated, sedated but alert, not following commands. Objective: Vital Signs Temp Pulse Resp BP Pulse Ox 37.6 C 96 13 124/68 H 97 12/20/17 12:00 12/20/17 12:00 12/20/17 12:00 12/20/17 12:00 12/20/17 12:00 Microbiology 12/16/17 13:50 Gram Stain - Final Lung Bilateral - Bronchial Washings 12/17/17 15:17 Gram Stain - Final Thoracic Fluid - Aspirate Laboratory Results 12/20/17 04:15 12/19/17 12/20/17 12/21/17 05:59 05:59 05:59 Intake Total 2275.8 2752 Output Total 5175 4085 1100 Balance -2899.2 -1333 -1100 PT 16.8 SEC (12.0-15.0) H 12/14/17 13:50 INR 1.34 (0.83-1.16) H 12/14/17 13:50 CXR: Stable basilar consolidation. Images reviewed by me. ICD10 Worksheet Patient Problems: Problems Problem Status Onset Pneumonia Acute Closed left tibial fracture Acute
--- NOTE | 2017-12-20 16:19 | ASMTCMCOM ---
CM Note CM Note Notes: Pt remains intubated and sedated and receiving IV ABX treatment for PNA. She has a PICC and Singh. The d/c plan remains to return to [facility] when medically cleared. CM will continue to follow. Date Signed: 12/20/2017 04:18 PM Electronically Signed By:NATALIE Correa
[2017-12-20] MEDS: LORazepam 2 MG/ML INJ IVP PRN ×2 (18:39)
[2017-12-21] MEDS: LORazepam 2 MG/ML INJ IVP PRN (00:32)
[2017-12-21] MEDS ORDERED: POTASSIUM Cl (KCl) 50 ML IV ONE (01:32)
[2017-12-21] MEDS: CEFEPIME HCL 2 GM in NS 100 ML IV SCH ×3 (03:02→18:47)
[2017-12-21] MEDS: ACETAMINOPHEN 325 MG TAB TUBE PRN ×2 (03:37→14:12)
[2017-12-21] MEDS: ALBUTEROL 60 PUFFS/8 GM MDI IH SCH ×3 (04:03→14:39)
[2017-12-21] MEDS: IPRATROPIUM HFA INHALER IH SCH ×3 (04:03→14:39)
[2017-12-21 06:15] LABS: PLATELET COUNT 466 10^3/uL (150-400)
[2017-12-21] MEDS: FAMOTIDINE 20 MG TAB TUBE SCH ×2 (08:33→22:03)
[2017-12-21] MEDS: CHOLECALCIFEROL VIT D3 1,000 UNITS TAB TUBE SCH (08:34)
[2017-12-21] MEDS: methylPREDNISolone SOD SUCC 125 MG/2 ML VIAL IVP SCH (08:34)
[2017-12-21] MEDS: BENZTROPINE MESYLATE 1 MG TAB TUBE SCH ×2 (08:34→22:03)
[2017-12-21] MEDS: ENOXAPARIN 40 MG/0.4 ML SYR SC SCH (08:34)
[2017-12-21] MEDS: CHLORHEXIDINE GLUCONATE 15 ML UDL PO SCH ×2 (08:34→22:03)
[2017-12-21] MEDS: FUROSEMIDE 20 MG/2 ML VIAL IVP SCH ×2 (10:11→16:10)
[2017-12-21] MEDS ORDERED: MIDAZOLAM 2 MG/2 ML VIAL ONE (11:36)
[2017-12-21] MEDS ORDERED: fentaNYL 100 MCG/2 ML INJ ONE (11:36)
[2017-12-21] MEDS ORDERED: LIDOCAINE 2% JELLY 5 ML TUBE TP ONE (11:41)
[2017-12-21] MEDS ORDERED: LIDOCAINE 1% 300 MG/30 ML SDV MISC ONE (11:41)
[2017-12-21] MEDS ORDERED: LIDOCAINE 1% 300 MG/30 ML SDV ONE (11:43)
[2017-12-21] MEDS ORDERED: LIDOCAINE 2% JELLY 5 ML TUBE ONE (11:44)
[2017-12-21] MEDS ORDERED: MIDAZOLAM 2 MG/2 ML VIAL IVP ONE (11:45)
[2017-12-21] MEDS ORDERED: POLYETHYLENE GLYCOL 3350 17 GM PKT PO ONE (11:45)
[2017-12-21] MEDS ORDERED: fentaNYL 100 MCG/2 ML INJ IV ONE (11:45)
[2017-12-21] MEDS: SENNOSIDES 17.6 MG/10 ML UDL TUBE SCH ×2 (12:27→22:04)
--- NOTE | 2017-12-21 13:19 | PDINTPN ---
Mechanical Tech Progress Note Assessment/Plan: Assessment: 62 F admitted with hypoxemia and abnormal mental status in setting of COPD and schizophrenia. She was altered on HD#2 and a stat team was called and associate creative director her to ICU. In the ICU she slowly regained her usual level of consciousness while her workup was negative. She had borderline BP and tachycardia perhaps from high frequency beta agonists * Acute respiratory failure with hypoxemia- pt found in severe resp distress with marked tachypnea so intubated 12/15 (separate documentation). CXR showed new RUL infiltrate with slight increase in WBC, but on 12/16 substantial increase in LLL opacity (pleural effusion vs infiltrate) so had bronch which revealed mild-moderate mucous plugs. No clearly reported aspiration but she is at high risk. Continues to improve, although WBC is up without bandemia or fever. FiO2 down to 40% and peep is at 5. CXR with peristent infiltrate LLL, and had moderate amount of secretions on suctioning. * Pleural effusion-status post thoracentesis 12/17. 900 mL of clear orange fluid removed. Feel this is more likely a transudate -await cultures * Abnormal mental status- not improving Psych consult pending, but her MS was better today despite her respiratory issues. Prolixin held 12/14, then restarted. Haven't yet restarted Seroquel COPD with acute exacerbation -continue frequent nebulized treatments * Hyponatremia- resolved. * Pneumonia- chest x-ray with dense consolidation left. Mostly unchanged * VT prophylaxis * Stress ulcer prophylaxis * Nutrition * Sedation-adequate Plan: Continue Cefepime. Follow CXR. Bronchoscopy, then probably extubate. Discussed with daughter via phone. 12/21/17 13:17 Subjective: Intubated, sedated, more alert but not following commands or answering questions. Objective: Vital Signs Temp Pulse Resp BP Pulse Ox 37.7 C 106 H 27 H 138/65 H 99 12/21/17 12:00 12/21/17 12:00 12/21/17 12:00 12/21/17 12:00 12/21/17 12:00 Microbiology 12/16/17 13:50 Mycobacterial Smear (GUICHO) - Final Lung Bilateral - Tissue 12/16/17 13:50 Gram Stain - Final Lung Bilateral - Bronchial Washings 12/17/17 15:17 Gram Stain - Final Thoracic Fluid - Aspirate Body Fluid Culture - Final Laboratory Results 12/21/17 06:00 12/21/17 06:00 12/20/17 12/21/17 12/22/17 05:59 05:59 05:59 Intake Total 6342 2004 Output Total 3023 4613 1324 Balance -0503 -645 -1325 PT 16.8 SEC (12.0-15.0) H 12/14/17 13:50 INR 1.34 (0.83-1.16) H 12/14/17 13:50 CXR: Little change: Images reviewed by me. Physical Exam - Physical Exam General Appearance: alert, no apparent distress Neck: normal inspection Respiratory: lungs clear, normal breath sounds Cardiac/Chest: regular rate, rhythm, No edema Abdomen: normal bowel sounds, non-tender Skin: normal color, warm/dry Extremities: normal inspection Neuro/Psych: alert, No normal mood/affect, No oriented x 3, No motor weakness ICD10 Worksheet Patient Problems: Problems Problem Status Onset Pneumonia Acute Closed left tibial fracture Acute
--- NOTE | 2017-12-21 13:38 | GPN ---
[f rep st] PROCEDURE NOTE DATE OF PROCEDURE: 12/21/2017 PROCEDURE: Flexible fiberoptic bronchoscopy. REASON FOR THE PROCEDURE: Respiratory failure with retained secretions. PROCEDURE NOTE: The risks and benefits of the procedure were explained to the patient's sister over the phone, who agreed to proceed. The entire procedure was performed in the intensive care unit with the patient under blood pressure, EKG, and oximetry monitoring. It was my assessment that there was no significant risk of airborne infection from the procedure. After an appropriate time-out, the br onchoscope was advanced through the endotracheal tube into the main trachea. There were no secretion s proximally. In the right-sided airways, there was a small to moderate amount of mucopurulent secre tions, which were easily suctioned. I then turned to the left-sided airways, where there was a moder ate amount of secretions occluding in the lingula and the lower lobe basilar segments. These were young ctioned and lavaged until clear. There were no endobronchial lesions and no significant secretions a t the end of the procedure. There was some mild bleeding in the right-sided airways as a result of t he procedure. The bronchoscope was then removed. A specimen will be sent for Gram stain and culture . The patient received 2 mg of Versed and 100 mcg of fentanyl intravenously for analgesia and sedati on. /[id number]/MODL
--- NOTE | 2017-12-21 14:23 | HOSPPROG ---
Hospitalist Progress Note Assessment/Plan: Assessment: 62-year-old F p/w sepsis, pneumonia and acute encephalopathy c/b acute hypoxic respiratory failure 2/2 suspected subsequent aspiration PNA and development of suspected parapneumonic effusion Plan: # acute hypoxemic and hypercapnic respiratory failure. in the setting of chronic copd with acute exacerbation as well as aspiration pna and pleural effusion leading to acute worsening. Ventilated 12/15 and now extubated 12/21. Has had thoracentesis and bronch, repeat bronch today, continued on IV lasix. # leukocytosis: wbc continues to elevate, sepsis POA, presumably 2/2 pneumonia as below, pateint febrile again today and need to monitor for other source of infection # copd with acute exacerbation: as above, continue BDs and steroids (weaning) # aspiration pna: dense BLL infiltrates with likely combination of atelectasis and pna, currently on cefepime and s/p 4 days of vanc # acute encephalopathy: was present on admission and then improved initially, complicated picture with hx of severe pysch issues but also concern for NMS initially, back on prolixin and with recurrent fever/wbc need to have concern for nms but no rigidity or clonus. Will eval further now that extubated as hopefully MS clears # chronic schizophrenia: with significant EPS as a result of her medications, resumed on prolixin and benztropine as above # acute urinary retention: tomlinson placed, will need to re-evaluate post extubation # sepsis: POA and improved, still with elevated wbc, 2/2 above # elevated trop: presumed 2/2 demand in setting of sepsis, hypoxia. Echo w/o focal wall motion abnormality. Peaked at 0.8 # IP status, high risk Care plan reviewed with Dr. Lopez and multidisciplinary care team. > 30 min critical care time spent in review/treatment of above Subjective: no significant overnight events, extubated today Objective: Vital Signs Temp Pulse Resp BP Pulse Ox 38.0 C 89 28 H 124/53 H 96 12/21/17 14:00 12/21/17 14:00 12/21/17 14:00 12/21/17 14:00 12/21/17 14:00 Microbiology 12/16/17 13:50 Mycobacterial Smear (GUICHO) - Final Lung Bilateral - Tissue 12/16/17 13:50 Gram Stain - Final Lung Bilateral - Bronchial Washings 06/15/18 15:17 Gram Stain - Final Thoracic Fluid - Aspirate Body Fluid Culture - Final Laboratory Results 12/21/17 06:00 12/20/17 12/21/17 12/22/17 05:59 05:59 05:59 Intake Total 7782 2004 Output Total 8932 2639 1500 Balance -1743 -720 -1500 PT 16.8 SEC (12.0-15.0) H 12/14/17 13:50 INR 1.34 (0.83-1.16) H 12/14/17 13:50 intubated sedated anicteric ett in place rrr systolic murmur coarse bs soft nt nd trace ble edema warm dry well perfused ICD10 Worksheet Patient Problems: Problems Problem Status Onset Pneumonia Acute Closed left tibial fracture Acute
[2017-12-21] MEDS: IPRATROPIUM/ALBUTEROL 3 ML DEYVIAL IH SCH (17:03)
[2017-12-22] MEDS: IPRATROPIUM/ALBUTEROL 3 ML DEYVIAL IH SCH ×5 (01:16→21:40)
[2017-12-22] MEDS: CEFEPIME HCL 2 GM in NS 100 ML IV SCH ×3 (04:19→21:38)
[2017-12-22] MEDS ORDERED: POTASSIUM Cl (KCl) 50 ML IV ONE ×2 (05:24→09:04)
[2017-12-22] MEDS: methylPREDNISolone SOD SUCC 125 MG/2 ML VIAL IVP SCH (09:38)
[2017-12-22] MEDS: FUROSEMIDE 20 MG/2 ML VIAL IVP SCH (09:39)
[2017-12-22] MEDS: ENOXAPARIN 40 MG/0.4 ML SYR SC SCH (09:39)
[2017-12-22] MEDS: CHLORHEXIDINE GLUCONATE 15 ML UDL PO SCH (09:40)
[2017-12-22] MEDS: FAMOTIDINE 20 MG TAB TUBE SCH (11:17)
[2017-12-22] MEDS: CHOLECALCIFEROL VIT D3 1,000 UNITS TAB TUBE SCH (11:17)
[2017-12-22] MEDS: BENZTROPINE MESYLATE 1 MG TAB TUBE SCH (11:17)
[2017-12-22] MEDS: SENNOSIDES 17.6 MG/10 ML UDL TUBE SCH (11:18)
[2017-12-22 11:49] LABS: PLATELET COUNT 522 10^3/uL (150-400)
--- NOTE | 2017-12-22 13:44 | PDINTPN ---
Physical Therapy Aide Progress Note Assessment/Plan: Assessment: 62 F admitted with hypoxemia and abnormal mental status in setting of COPD and schizophrenia. She was altered on HD#2 and a stat team was called and director staffing her to ICU. In the ICU she slowly regained her usual level of consciousness while her workup was negative. She had borderline BP and tachycardia perhaps from high frequency beta agonists * Acute respiratory failure with hypoxemia- pt found in severe resp distress with marked tachypnea so intubated 12/15 (separate documentation). CXR showed new RUL infiltrate with slight increase in WBC, but on 12/16 substantial increase in LLL opacity (pleural effusion vs infiltrate) so had bronch which revealed mild-moderate mucous plugs. No clearly reported aspiration but she is at high risk. Continues to improve, WBC coming down, minimal oxygen needs, less tachypneic. * Pleural effusion-status post thoracentesis 12/17. 900 mL of clear orange fluid removed. Feel this is more likely a transudate -await cultures * Abnormal mental status- not at baseline. Prolixin held 12/14, then restarted. Haven't yet restarted Seroquel COPD with acute exacerbation -continue frequent nebulized treatments * Hyponatremia- resolved. BUN up with diuresis. * Pneumonia- chest x-ray with dense consolidation left. Mostly unchanged * VT prophylaxis * Stress ulcer prophylaxis * Nutrition * Sedation-adequate Plan: Continue Cefepime. Follow CXR. Advance diet. Stop Lasix, d/c tomlinson. Increase activity, sit up for meals, etc. D/C Tomlinson. 12/22/17 13:45 12/22/17 13:47 Subjective: More alert, not communicating. Objective: Vital Signs Temp Pulse Resp BP Pulse Ox 37.2 C 75 22 H 141/66 H 94 12/22/17 12:00 12/22/17 12:00 12/22/17 12:00 12/22/17 12:00 12/22/17 12:00 Microbiology 12/21/17 12:30 - Final Sputum, Induced/Suctioned 12/16/17 13:50 Gram Stain - Final Lung Bilateral - Bronchial Washings Bronchial Washings Culture - Final Meena Albicans 12/16/17 13:50 Mycobacterial Smear (GUICHO) - Final Lung Bilateral - Tissue Laboratory Results 12/22/17 11:30 12/22/17 11:30 12/21/17 12/22/17 12/23/17 05:59 05:59 05:59 Intake Total 2004 Output Total 4682 5153 Balance -720 -2500 PT 16.8 SEC (12.0-15.0) H 12/14/17 13:50 INR 1.34 (0.83-1.16) H 12/14/17 13:50 Physical Exam - Physical Exam General Appearance: alert, no apparent distress EENT: normal ENT inspection Neck: normal inspection Respiratory: lungs clear, normal breath sounds Cardiac/Chest: regular rate, rhythm, edema Abdomen: normal bowel sounds, non-tender Skin: normal color, warm/dry Extremities: normal inspection Neuro/Psych: alert, No oriented x 3 ICD10 Worksheet Patient Problems: Problems Problem Status Onset Pneumonia Acute Closed left tibial fracture Acute
--- NOTE | 2017-12-22 17:54 | HOSPPROG ---
Hospitalist Progress Note Assessment/Plan: Assessment: 62-year-old F p/w sepsis, pneumonia and acute encephalopathy c/b acute hypoxic respiratory failure 2/2 suspected subsequent aspiration PNA and development of suspected parapneumonic effusion Plan: # acute hypoxemic and hypercapnic respiratory failure. in the setting of chronic copd with acute exacerbation as well as aspiration pna and pleural effusion leading to acute worsening. Ventilated 12/15 and now extubated 12/21. Much improved, will discontinue lasix for now as appears euvolemic # leukocytosis: wbc now trending down, sepsis POA, presumably 2/2 pneumonia as well as steroids, afebrile today # copd with acute exacerbation: continue BDs and steroids (weaning) # aspiration pna: dense BLL infiltrates with likely combination of atelectasis and pna, currently on cefepime and s/p 4 days of vanc # acute encephalopathy: was present on admission and then improved initially, complicated picture with hx of severe pysch issues and initial concern for NMS, overall appears to be improving slowly, metabolic without focal neurologic deficits # chronic schizophrenia: with significant EPS as a result of her medications, resumed on prolixin and benztropine as above # acute urinary retention: tomlinson placed, will need to re-evaluate post extubation # sepsis: POA and improved, still with elevated wbc, 2/2 above # elevated trop: presumed 2/2 demand in setting of sepsis, hypoxia. Echo w/o focal wall motion abnormality. Peaked at 0.8 # IP status, high risk Care plan reviewed with Dr. Lopez and multidisciplinary care team. Subjective: no acute overnight events, remains only minimally interactive, afebrile overnight Objective: Vital Signs Temp Pulse Resp BP Pulse Ox 36.5 C 114 H 22 H 158/78 H 94 12/22/17 16:00 12/22/17 16:37 12/22/17 16:37 12/22/17 16:00 12/22/17 16:37 Microbiology 12/21/17 12:30 - Final Sputum, Induced/Suctioned 12/16/17 13:50 Gram Stain - Final Lung Bilateral - Bronchial Washings Bronchial Washings Culture - Final Meena Albicans 12/16/17 13:50 Mycobacterial Smear (GUICHO) - Final Lung Bilateral - Tissue Laboratory Results 12/22/17 11:30 12/22/17 11:30 12/21/17 12/22/17 12/23/17 05:59 05:59 05:59 Intake Total 2004 77 Output Total 9475 4886 Balance -699 -5665 PT 16.8 SEC (12.0-15.0) H 12/14/17 13:50 INR 1.34 (0.83-1.16) H 12/14/17 13:50 awake minimally verbally interactive anicteric ett in place rrr systolic murmur coarse bs soft nt nd trace ble edema warm dry well perfused ICD10 Worksheet Patient Problems: Problems Problem Status Onset Pneumonia Acute Closed left tibial fracture Acute
[2017-12-22] MEDS: FAMOTIDINE 20 MG TAB PO SCH (21:36)
[2017-12-22] MEDS: BENZTROPINE MESYLATE 1 MG TAB PO SCH (21:36)
[2017-12-22] MEDS: SENNOSIDES 17.6 MG/10 ML UDL PO SCH (21:36)
[2017-12-22] MEDS: CALCIUM CARBONATE 500 MG CHEWABLE TAB PO SCH (21:37)
[2017-12-23] MEDS: CEFEPIME HCL 2 GM in NS 100 ML IV SCH ×3 (03:07→18:39)
[2017-12-23] MEDS: IPRATROPIUM/ALBUTEROL 3 ML DEYVIAL IH SCH ×4 (05:53→22:00)
[2017-12-23] MEDS: BENZTROPINE MESYLATE 1 MG TAB PO SCH ×2 (07:42→21:30)
[2017-12-23] MEDS: CHOLECALCIFEROL VIT D3 1,000 UNITS TAB PO SCH (07:42)
[2017-12-23] MEDS: FAMOTIDINE 20 MG TAB PO SCH ×2 (07:42→21:27)
[2017-12-23] MEDS: CALCIUM CARBONATE 500 MG CHEWABLE TAB PO SCH ×2 (07:42→21:27)
[2017-12-23] MEDS: SENNOSIDES 17.6 MG/10 ML UDL PO SCH ×2 (07:42→21:31)
[2017-12-23] MEDS: ENOXAPARIN 40 MG/0.4 ML SYR SC SCH (08:16)
--- NOTE | 2017-12-23 10:00 | PDINTPN ---
Furnace Attendant Progress Note Assessment/Plan: Assessment: 62 F admitted with hypoxemia and abnormal mental status in setting of COPD and schizophrenia. She was altered on HD#2 and a stat team was called and material mover her to ICU. In the ICU she slowly regained her usual level of consciousness while her workup was negative. She had borderline BP and tachycardia perhaps from high frequency beta agonists * Acute respiratory failure with hypoxemia- pt found in severe resp distress with marked tachypnea so intubated 12/15 (separate documentation). CXR showed new RUL infiltrate with slight increase in WBC, but on 12/16 substantial increase in LLL opacity (pleural effusion vs infiltrate) so had bronch which revealed mild-moderate mucous plugs. No clearly reported aspiration but she is at high risk. Bronched and extubated 12/21. Continues to improve, WBC coming down, minimal stable oxygen needs, less tachypneic. * Pleural effusion-status post thoracentesis 12/17. 900 mL of clear orange fluid removed. Feel this is more likely a transudate -await cultures * Abnormal mental status- not at baseline. Prolixin held 12/14, then restarted. Haven't yet restarted Seroquel COPD with acute exacerbation -continue frequent nebulized treatments. Steroids d/c'd 12/22. * Hyponatremia- resolved. BUN up with diuresis. * Pneumonia- chest x-ray with dense consolidation left. Mostly unchanged * VT prophylaxis * Stress ulcer prophylaxis * Nutrition: Made NPO due to aspiration risk 12/22. For videoswallow today. If fails, consider feeding tube. * Sedation-adequate Plan: Continue Cefepime. Repeat CXR. Advance diet. Increase activity, sit up for meals, etc. 12/23/17 10:52 12/23/17 10:53 Subjective: Awakens to voice. Follows simple commands slowly and answers questions. Objective: Vital Signs Temp Pulse Resp BP Pulse Ox 36.5 C 101 H 22 H 142/96 H 90 L 12/23/17 07:54 12/23/17 07:54 12/23/17 07:54 12/23/17 07:54 12/23/17 07:54 Microbiology 12/21/17 12:30 - Final Sputum, Induced/Suctioned Laboratory Results 12/22/17 11:30 12/23/17 04:50 12/22/17 12/23/1712/24/18 05:59 05:59 05:59 Intake Total 774 1182 Output Total 8910 8010 Balance -2501 -268 PT 16.8 SEC (12.0-15.0) H 12/14/17 13:50 INR 1.34 (0.83-1.16) H 12/14/17 13:50 Physical Exam - Physical Exam General Appearance: alert, no apparent distress EENT: pharynx normal Neck: normal inspection Respiratory: lungs clear, No normal breath sounds Cardiac/Chest: regular rate, rhythm, No edema Abdomen: normal bowel sounds, non-tender Skin: normal color, warm/dry Extremities: normal inspection Neuro/Psych: normal mood/affect, No alert (somnolent but arousable), No oriented x 3 (Name only) ICD10 Worksheet Patient Problems: Problems Problem Status Onset Pneumonia Acute Closed left tibial fracture Acute
--- NOTE | 2017-12-23 11:45 | ASMTCMCOM ---
CM Note CM Note Notes: Met with patient's sister, Rhianna who states she found the 8 wishes form for her sister. Rhianna is going to email the document to me so it can be placed in patient's chart. Rhianna states the document is about 10 years old but probably expresses her sister's wishes most accurately. Informed Rhianna about family meetings and what they are for. Rhianna says most of her questions are answered presently but she will want a family meeting when patient is closer to returning to [place]. She was given contact information so she can call when she wants to set it up. CM will follow. Date Signed: 12/23/2017 11:44 AM Electronically Signed By:Teressa Wang LCSW
[2017-12-23] MEDS ORDERED: hydrALAZINE 20 MG/ML VIAL IVP PRN (12:29)
[2017-12-23] MEDS ORDERED: BISACODYL 10 MG SUPP PR PRN (14:07)
[2017-12-23] MEDS ORDERED: POLYETHYLENE GLYCOL 3350 17 GM PKT PO PRN (14:07)
[2017-12-23] MEDS ORDERED: LACTULOSE 20 GM/30 ML UDCUP PO PRN (14:07)
[2017-12-23] MEDS ORDERED: MAGNESIUM HYDROXIDE 30 ML UDCUP PO PRN (14:07)
--- NOTE | 2017-12-23 15:15 | HOSPPROG ---
Hospitalist Progress Note Assessment/Plan: Assessment: 62-year-old F p/w sepsis, pneumonia and acute encephalopathy c/b acute hypoxic respiratory failure 2/2 suspected subsequent aspiration PNA and development of suspected parapneumonic effusion Plan: # acute hypoxemic and hypercapnic respiratory failure. in the setting of chronic copd with acute exacerbation as well as aspiration pna and pleural effusion leading to acute worsening. Ventilated 12/15 and now extubated 12/21. Much improved, will discontinue lasix for now as appears euvolemic # leukocytosis: wbc now trending down, sepsis POA, presumably 2/2 pneumonia as well as steroids, afebrile today # copd with acute exacerbation: continue BDs and steroids (weaning) # aspiration pna: dense BLL infiltrates with likely combination of atelectasis and pna, currently on cefepime and s/p 4 days of vanc, repeat cxr in am # acute encephalopathy: was present on admission and then improved initially, complicated picture with hx of severe pysch issues, sister notes that at baseline she has poor planning skills and limited memory but is interactive and alert, she is currently very somnolent and does not appear to be at her baseline at this point # dysphagia: patient failed swallow eval and shows no signs of being able to pass anytime soon. Will need to consider PEG tube but after hearing from sister today unclear if her goals of care in this regard are clear or not. Will try to arrange palliative care meeting for goals of care planning # chronic schizophrenia: with significant EPS as a result of her medications, resumed on prolixin and benztropine as above # acute urinary retention: tomlinson placed, will need to re-evaluate post extubation # sepsis: POA and improved, still with elevated wbc, 2/2 above # elevated trop: presumed 2/2 demand in setting of sepsis, hypoxia. Echo w/o focal wall motion abnormality. Peaked at 0.8 # IP status, high risk Subjective: no significant overnight events, patient remains minimally responsive today Objective: Vital Signs Temp Pulse Resp BP Pulse Ox 37.1 C 105 H 30 H 107/73 91 L 12/23/17 13:20 12/23/17 13:20 12/23/17 13:20 12/23/17 13:20 12/23/17 13:20 Microbiology 12/21/17 12:30 - Final Sputum, Induced/Suctioned Laboratory Results 12/22/17 11:30 12/23/17 04:50 12/22/17 12/23/17 12/24/17 05:59 05:59 05:59 Intake Total 774 1182 Output Total 3935 1450 Balance -2501 -268 PT 16.8 SEC (12.0-15.0) H 12/14/17 13:50 INR 1.34 (0.83-1.16) H 12/14/17 13:50 awake but minimally interactive anicteric op clear tachy regular no mrg cta coarse bs wet cough soft nt nd ble edema warm dry well perfused ICD10 Worksheet Patient Problems: Problems Problem Status Onset Closed left tibial fracture Acute Pneumonia Acute
[2017-12-23] MEDS: NS 1,000 ML IV SCH (18:39)
[2017-12-23] MEDS: SENNOSIDES/DOCUSATE SODIUM TAB PO SCH (21:31)
[2017-12-24] MEDS: CEFEPIME HCL 2 GM in NS 100 ML IV SCH ×3 (02:48→18:37)
[2017-12-24] MEDS: NS 1,000 ML IV SCH ×2 (03:35→12:49)
[2017-12-24] MEDS: IPRATROPIUM/ALBUTEROL 3 ML DEYVIAL IH SCH ×4 (05:15→21:11)
[2017-12-24] MEDS: CALCIUM CARBONATE 500 MG CHEWABLE TAB PO SCH ×2 (09:23→22:02)
[2017-12-24] MEDS: FAMOTIDINE 20 MG TAB PO SCH ×2 (09:23→22:02)
[2017-12-24] MEDS: BENZTROPINE MESYLATE 1 MG TAB PO SCH ×2 (09:23→22:02)
[2017-12-24] MEDS: CHOLECALCIFEROL VIT D3 1,000 UNITS TAB PO SCH (09:23)
[2017-12-24] MEDS: SENNOSIDES 17.6 MG/10 ML UDL PO SCH ×2 (09:24→22:02)
[2017-12-24] MEDS: SENNOSIDES/DOCUSATE SODIUM TAB PO SCH (09:24)
[2017-12-24] MEDS: POLYETHYLENE GLYCOL 3350 17 GM PKT PO SCH (09:24)
[2017-12-24] MEDS: ENOXAPARIN 40 MG/0.4 ML SYR SC SCH (11:52)
--- NOTE | 2017-12-24 17:00 | ASMTCMCOM ---
CM Note CM Note Notes: Palliative ordered yesterday. Today Merle with palliative team indicates there may not be a need for palliative meeting as she spoke with pt sister/proxy who indicates she is in favor of pursuing peg tube. Updates sent to [facility]. CM to follow. D/c plan remains return to [facility] when medically stable. Date Signed: 12/24/2017 04:59 PM Electronically Signed By:NATALIE Hurt
--- NOTE | 2017-12-24 17:38 | HOSPPROG ---
Hospitalist Progress Note Assessment/Plan: Subjective I reviewed the patient's case today with palliative care team. They are discussing with the family about pursuing PEG tube placement in light of her swallowing difficulties. It sounds like the family is agreeable to proceed with PEG tube placement for now. We did discuss this could be short-term if her swallowing improves. At this point time though I do not feel that the patient has decisional capacity and I recommend involving her power of laundry supervisor for medical decision making otherwise no acute events overnight Objective Vital signs as detailed below Physical exam General-patient follow voice was quite soft but she was attempting conversation today. Heart-regular rate and rhythm no murmurs Lungs-slightly increased respiratory effort mild coarseness to upper airway but no significant wheezing appreciated Abdomen-soft nontender nondistended -no Singh catheter in place Extremities-no significant pitting edema appreciated Skin-no concerning skin rashes visualized Labs as detailed below Assessment plan Acute hypoxic and hypercapnic respiratory failure-improved patient is now on nasal cannula oxygen. She was intubated from December 15 through December 21. Continue with current nebulizers and respiratory support. Sepsis-parameters improving continue to monitor Pneumonia- treat for potential aspiration pneumonia. She is currently on cefepime. Continue. Pleural effusion-patient was have found to have a small to moderate left effusion and small right effusion. Consider repeat chest imaging if any higher oxygen needs to determine if these would need drainage. Encephalopathy-likely delirium contributing to her fluctuating mental status. Dysphagia-no evidence of stroke was seen on CT imaging which 1st came into the hospital. Could give some consideration to MRI for further assessment. At this point time she seems to making slow progress and will discuss PEG tube placement with the family and GI. Urine retention-patient was having 700 mL of urine on bladder scanning. As such we decided to place the Singh catheter. Schizophrenia- continue with current Depakote and Seroquel. COPD-continue with DuoNeb nebulizers. DVT prophylaxis-Lovenox Disposition-looking at [place]. Again I do not feel patient has decisional capacity at this point time so will work with patient's family and power of attorneys for medical decisions. Objective: Vital Signs Temp Pulse Resp BP Pulse Ox 36.8 C 82 16 154/79 H 96 12/24/17 15:50 12/24/17 16:00 12/24/17 16:00 12/24/17 15:50 12/24/17 16:00 Microbiology 12/21/17 12:30 - Final Sputum, Induced/Suctioned Sputum Culture - Final Meena Albicans Laboratory Results 12/22/17 11:30 12/24/17 04:05 12/23/17 12/24/17 12/25/17 05:59 05:59 05:59 Intake Total 1182 900 Output Total 1450 Balance -268 900 PT 16.8 SEC (12.0-15.0) H 12/14/17 13:50 INR 1.34 (0.83-1.16) H 12/14/17 13:50 ICD10 Worksheet Patient Problems: Problems Problem Status Onset Pneumonia Acute Closed left tibial fracture Acute
[2017-12-25] MEDS: CEFEPIME HCL 2 GM in NS 100 ML IV SCH ×2 (03:05→11:51)
[2017-12-25] MEDS: NS 1,000 ML IV SCH ×3 (03:09→22:21)
[2017-12-25] MEDS: IPRATROPIUM/ALBUTEROL 3 ML DEYVIAL IH SCH ×4 (05:25→23:04)
[2017-12-25] MEDS: ACETAMINOPHEN 325 MG TAB PO PRN (05:46)
[2017-12-25] MEDS: CALCIUM CARBONATE 500 MG CHEWABLE TAB PO SCH ×3 (09:35→22:46)
[2017-12-25] MEDS: BENZTROPINE MESYLATE 1 MG TAB PO SCH ×3 (09:35→22:46)
[2017-12-25] MEDS: FAMOTIDINE 20 MG TAB PO SCH ×2 (09:36→22:46)
[2017-12-25] MEDS: CHOLECALCIFEROL VIT D3 1,000 UNITS TAB PO SCH (09:36)
[2017-12-25] MEDS: SENNOSIDES 17.6 MG/10 ML UDL PO SCH ×2 (09:36→22:46)
--- NOTE | 2017-12-25 16:09 | HOSPPROG ---
Hospitalist Progress Note Assessment/Plan: Subjective No acute events overnight. I was able to talk with the patient's power of corporate associate attorney Rhianna today who is her sister. She seems to understand the difficulties with swallowing that have occurred she does add that she was admitted approximately 10 years ago for an aspiration pneumonia. But she has done very well since that time up until now. She does seem to recognize that there was some swallowing issues leading up to this most recent admission. We brought up the possibility of PEG tube placement for which she seemed agreeable to proceed with if we felt he was the best course of action to give her the best chance of recovery. I reviewed the case as well with Dr. Salas with Gastroenterology who kindly agreed to consult. Objective Vital signs as detailed below Physical exam General-patient resting comfortably in bed she did open her eyes any HI contacted attempt localization. No acute distress. Heart-regular rate and rhythm. No murmurs noted. Lungs-normal respiratory effort today but continued mild coarseness of the upper airways. No significant wheezing noted. Abdomen-soft nontender nondistended. -Singh catheter in place with clear yellow urine Extremities-no significant pitting edema appreciated Skin-no concerning skin rashes noted Labs as detailed below Assessment plan Acute hypoxic respiratory failure-this is secondary to aspiration pneumonia. Patient is gradually improving. We have been able to wean her oxygen 1 L nasal cannula today. Pneumonia-treating for of aspiration pneumonia. She is currently on cefepime. Considered escalation of antibiotics if continued clinical improvement. Encephalopathy-I suspect she likely has delirium. We did perform an MRI of the brain today for further assessment and this was read as normal. Dysphagia-no significant progress over the past days. Will await consultation from Dr. Salas regarding possibility of a PEG tube placement. Urine retention-continue with Singh catheter placement. Schizophrenia-will insure we have resumed patient's prior outpatient regimen including Requip, benztropine, Depakote, Prolixin, and Seroquel. COPD-continue current DuoNeb nebulizers. DVT prophylaxis-Lovenox will be placed on hold for now until we have a plan regarding PEG tube placement. Disposition-patient previously resided at [facility] [facility] and anticipating returning there once medically stable. Objective: Vital Signs Temp Pulse Resp BP Pulse Ox 36.4 C 79 17 158/83 H 96 12/25/17 07:44 12/25/17 11:23 12/25/17 11:23 12/25/17 07:44 12/25/17 11:23 Laboratory Results 12/22/17 11:30 12/24/17 04:05 12/24/17 12/25/17 12/26/17 05:59 05:59 05:59 Intake Total 900 1100 Output Total 2575 Balance 900 -1475 PT 16.8 SEC (12.0-15.0) H 12/14/17 13:50 INR 1.34 (0.83-1.16) H 12/14/17 13:50 ICD10 Worksheet Patient Problems: Problems Problem Status Onset Pneumonia Acute Closed left tibial fracture Acute
--- NOTE | 2017-12-25 19:55 | GCON ---
[f rep st] CONSULTATION DATE OF CONSULTATION: 12/25/2017 REFERRING PHYSICIAN: Kenrick Pike MD REASON FOR CONSULTATION: Dysphagia and feeding difficulty. Dear Dr. Pike: Thank you very kindly for asking me to evaluate the patient in consultation for a chief complaint of dysphagia. HISTORY OF PRESENT ILLNESS: She is an unfortunate 62-year-old female, who was hospitalized at [facility] on December 10 for hypoxia and left lower lobe pneumonia. She required mechanical intubation and has now been extubated, but has been unable to eat or drink safely. She had a video swallowing study on December 23 that showed fairly severe oral and pharyngeal phase dysphagia with silent aspiration with all substances. I have attempted to interview the patient today, but she does not cognitively respond to my questions. She is awake and will follow simple commands, but I can obtain no history. I have attempted to contact her power of estate planning attorney who is her sister, today, but her voicemail box is not set up and she does not answer her phone. In review of the hospital progress notes, it would appear that a discussion about a gastrostomy for nutrition and hydration was agreeable to the family, but I will need to discuss this further with them. It is unclear why she is unable to speak or participate in her eating and drinking, but it seems to be centrally mediated, and I would have a sense that this is likely due to her schizophrenia and possibly medication toxicities causing extrapyramidal symptoms and neurologic dysphagia. Most of the remaining history is obtained from the medical chart as I am unable to obtain any information from the patient today. PAST MEDICAL HISTORY: Obtained from review of the consultation note from [facility] on December 11 reveals a history of COPD, schizophrenia on multiple medications. She is a custodial resident. History of extrapyramidal side effects and parkinsonian again thought medication related. She has had a previous aspiration in 2017. PAST SURGICAL HISTORY: Tibial fracture, tubal ligation. MEDICATIONS: On admission include Fosamax, calcium carbonate, vitamin D3, Flonase, Combivent, Xopenex, Seroquel, Cogentin, Prolixin, Requip, oxycodone, Xarelto, and Depakote. SOCIAL HISTORY: The patient is again a custodial resident. Her power of estate planning attorney is her sister. . Supposedly a tobacco history. No history of alcoholism or substance abuse. FAMILY HISTORY: Is listed as noncontributory, but I cannot obtain any further information from the patient. REVIEW OF SYSTEMS: Is unobtainable. ALLERGIES: Listed as diphenhydramine and penicillin. PHYSICAL EXAM: VITAL SIGNS: Body weight is 94.5 kg, with a BMI of 31.7. Blood pressure is 140/78, with a pulse of 88, respirations are 18, oxygenation is 94% on 3 L nasal cannula, temperature is 36.6. GENERAL: No acute distress. She does appear dyspneic. HEENT: Sclerae anicteric. NECK: Supple. Mucous membranes are dry. There are fasciculations to the tongue. Trachea is midline. No neck mass or lesion. No carotid bruit. PULMONARY: Breath sounds are quite rhonchorous, shallow, and she is tachypneic. Air exchange is good. CARDIOVASCULAR: Regular rate and rhythm. Systolic murmur 2/6 at the left border. GI: Abdomen is obese, soft. Hypoactive bowel sounds. No tenderness, rebound, guarding, ascites. No palpable mass or lesion. GENITOURINARY: There is a Singh catheter. EXTREMITIES: There is mild clubbing to the digits, but no cyanosis. No palmar erythema. No joint deformity, swelling, or warmth. DERMATOLOGIC: No jaundice or rash. NEURO: I cannot assess if the person is oriented to person, place, or time. She is alert. She does seem to nod her head to simple questions, but I cannot ascertain if this is purposeful. Motor is nonfocal. She does move her extremities spontaneously. Pupils are equal to light. Again, she does have a resting tremor. DATABASE: Includes the following: White blood count 17.3, hematocrit 36.3, platelets are 522. Last chemistries were December 22, 2017, sodium 140, potassium 4.3, chloride 97, bicarbonate is 33, BUN 25, creatinine is 0.3, glucose 142. INR is 1.34, with a PT of 16.8 on December 14. IMAGING: Includes a speech and swallow study, which was reviewed per the HPI, but shows that she fails with all consistencies of substances due to oropharyngeal dysphagia and silent aspiration. Imaging shows a brain MRI on December 25, 2017 that is normal. Chest x-ray on December 24, shows good aeration of the lungs with improving left basilar pneumonia and evidence of chronic airways disease with diffuse peribronchial thickening, small left-sided pleural effusion. IMPRESSION: 1. Left lower lobe pneumonia with pleural effusion, improved. 2. Respiratory failure, improved. 3. Severe oropharyngeal dysphagia that I think is due to her acute illness, underlying schizophrenia, and perhaps extrapyramidal side effects, parkinsonism without evidence of other acute central process. RECOMMENDATIONS: 1. I would feel that a Dobhoff placement and feeding would be the best and least invasive course of action for her to see if some of these medication side effects or schizophrenia could possibly improve to allow her to eat and drink safely. It sounds like she was doing well with her nutrition and intake prior to her hospitalization, but I will need more details. 2. I do believe some of these medical conditions will be chronic, but whether or not her centrally-mediated oropharyngeal dysphagia can improve is unknown. I am unsure if this is due to severe depression, schizophrenia, medication toxicity or maybe even being undermedicated during the intubated illness when she could not take her routine psych meds. These variable should improve in a timeframe that may avoid the need for a gastrostomy. I will need to discuss the risks and benefits of a gastrostomy placement in more detail with her power of estate planning attorney when she is available. 3. For now, again, I would recommend that we start with a Dobhoff placement for medications, nutrition, hydration and to see what effect that may have over a few days. If there is really no improvement with her ability to eat or drink or cognitive improvement, which will impact her ability to eat or drink, then a gastrostomy seems to be appropriate in my opinion. 4. Anesthesia for PEG placement would also be high risk for her tenuous pulmonary situation right now also. 5. Further recommendations to follow a family discussion. I have discussed this with Dr. Kenrick Piek. /[id number]/MODL MTDD
[2017-12-25] MEDS ORDERED: DIVALPROEX NA 500 MG TAB PO SCH (21:00)
[2017-12-26] MEDS: IPRATROPIUM/ALBUTEROL 3 ML DEYVIAL IH SCH ×3 (05:05→17:25)
[2017-12-26] MEDS: NS 1,000 ML IV SCH (06:41)
[2017-12-26 06:49] LABS: PLATELET COUNT 391 10^3/uL (150-400)
[2017-12-26] MEDS ORDERED: PROTOCOL POTASSIUM 1 DOSE MISC PRN (07:27)
[2017-12-26] MEDS: POTASSIUM Cl (KCl) 50 ML IV SCH ×3 (08:13→22:00)
--- NOTE | 2017-12-26 09:23 | SOAPPROG ---
SOAP Progress Note Assessment/Plan: Assessment: 1. Schizophrenia 2. Oropharyngeal dysphagia 3. Feeding difficulty Plan: 1. Dobhoff today. Flat plate to check placement prior to use 2. If unsuccessful placement on floor then please check with radiology about fluoroscopic placement 3. If failure to successfully place dobhoff or if patient does not tolerate then she will need a PEG placement 4. Hopefully with nutrition/hydration and medication resumption she can improve enough to avoid the PEG but we will see. 5. Discussed in detail with Rhianna (sister VERONICA) who is agreeable and with Dr. Pike. 12/26/17 09:17 Subjective: CC: Follows simple commands. Difficulty with speech. No significant change in cognition from yesterday Objective: Vital Signs Temp Pulse Resp BP Pulse Ox 36.5 C 83 12 172/83 H 96 12/26/17 08:00 12/26/17 08:00 12/26/17 08:00 12/26/17 08:00 12/26/17 08:00 Laboratory Results 12/26/17 06:28 12/26/17 06:28 12/25/17 12/26/17 12/27/17 05:59 05:59 05:59 Intake Total 1100 Output Total 2575 1350 Balance -1475 -1350 PT 16.8 SEC (12.0-15.0) H 12/14/17 13:50 INR 1.34 (0.83-1.16) H 12/14/17 13:50 Physical Exam - Physical Exam General Appearance: no apparent distress Neck: supple Respiratory: rhonchi Cardiac/Chest: regular rate, rhythm Abdomen: normal bowel sounds, non-tender, soft Skin: pallor Neuro/Psych: cognition abnormalities, speech abnormalities ICD10 Worksheet Patient Problems: Problems Problem Status Onset Pneumonia Acute Closed left tibial fracture Acute
[2017-12-26] MEDS: NS W/ 20 KCl/L 1,000 ML IV SCH (09:30)
[2017-12-26] MEDS: CALCIUM CARBONATE 500 MG CHEWABLE TAB PO SCH ×3 (09:33→22:43)
[2017-12-26] MEDS: FAMOTIDINE 20 MG TAB PO SCH ×3 (09:33→22:43)
[2017-12-26] MEDS: CHOLECALCIFEROL VIT D3 1,000 UNITS TAB PO SCH (09:33)
[2017-12-26] MEDS: BENZTROPINE MESYLATE 1 MG TAB PO SCH ×3 (09:34→22:39)
[2017-12-26] MEDS: SENNOSIDES 17.6 MG/10 ML UDL PO SCH ×3 (09:34→22:42)
[2017-12-26] MEDS: POLYETHYLENE GLYCOL 3350 17 GM PKT PO SCH (09:34)
--- NOTE | 2017-12-26 17:50 | HOSPPROG ---
Hospitalist Progress Note Assessment/Plan: Subjective Follow-up on dysphagia. No acute events overnight. I reviewed her case with Dr. Salas with Gastroenterology today. We discussed placing a Dobhoff tube so that we can administer medications and nutrition and follow her closely over the coming days to see if her swallowing ability will improved. Dr. Salas did discuss this with the patient's [id number] any who was agreeable. She had a Dobhoff tube placement done today. Objective Vital signs as detailed below Physical exam General-patient resting comfortably she is arousable and did attempt a vocalize with me. Heart-regular rate and rhythm no murmurs noted Lungs- normal respiratory effort but continued coarseness of the upper airways. No significant wheezing noted. Abdomen-soft nontender nondistended -Singh catheter in place with clear yellow urine Extremities-no significant pitting edema appreciated Labs as detailed below Assessment and Plan Acute hypoxic respiratory failure-secondary to aspiration pneumonia. She has completed 10 days of empiric therapy with cefepime. I think we can hold off at this point time and monitor closely over the coming days for any fevers, worsening cough, or leukocytosis. Pneumonia-she has completed 10 days of antibiotics with cefepime. Encephalopathy-I suspect she likely has a delirium. Some of her encephalopathy as well could be affected by lack of ability to administer her psychiatric medications. Now with Dobhoff tube placement we can go ahead and proceed. MRI of the brain was read as normal. Dysphagia-no significant proved over the past days. Some of the problem is her motivation to work with speech therapy. The plan currently is for Dobhoff tube placement and administration of tube feeds as well as medications and see how she does over the coming few days. Appreciate Dr. Salas saw assistance on the case. Urine retention- continue with Singh catheter placement Schizophrenia- her outpatient regimen is in place. I will make an O2 pharmacy to administer through Dobhoff tube. COPD-continue current DuoNeb nebulizers. DVT prophylaxis-resume Lovenox. Disposition-patient previously resided at [facility] and anticipating return there once medically stable. Objective: Vital Signs Temp Pulse Resp BP Pulse Ox 36.4 C 90 26 H 172/97 H 95 12/26/17 16:00 12/26/17 17:26 12/26/17 17:26 12/26/17 15:41 12/26/17 17:26 Laboratory Results 12/26/17 06:28 12/26/17 06:28 12/25/17 12/26/17 12/27/17 05:59 05:59 05:59 Intake Total 1100 Output Total 2575 1350 200 Balance -1475 -1350 -200 PT 16.8 SEC (12.0-15.0) H 12/14/17 13:50 INR 1.34 (0.83-1.16) H 12/14/17 13:50 ICD10 Worksheet Patient Problems: Problems Problem Status Onset Pneumonia Acute Closed left tibial fracture Acute
[2017-12-26] MEDS: VALPROIC ACID 250 MG/5 ML UDCUP PO SCH ×2 (22:01→22:42)
[2017-12-26] MEDS ORDERED: hydrALAZINE 20 MG/ML VIAL IVP PRN (23:15)
[2017-12-27] MEDS: POTASSIUM Cl (KCl) 50 ML IV SCH ×4 (00:41→10:41)
[2017-12-27] MEDS: IPRATROPIUM/ALBUTEROL 3 ML DEYVIAL IH SCH ×5 (01:11→23:41)
[2017-12-27] MEDS: NS W/ 20 KCl/L 1,000 ML IV SCH (06:13)
[2017-12-27] MEDS ORDERED: FUROSEMIDE 20 MG/2 ML VIAL IVP ONE (06:27)
--- NOTE | 2017-12-27 06:34 | HOSPPROG ---
Hospitalist Progress Note Assessment/Plan: Hospitalist Night Float Note Paged by RN. RT visit with patient noted pt with suction of thickened secretions and tachypnea to 30s. CXR showing slight increased left lower lobe infiltrate and right venous congestion. KUB despite attempts to position patient with dht showing that it is still kinked in similar position upper stomach. LE with increased edema. Lungs quite coarse throughout all lung barth slightly more LLL than right. RN reports this is similar to oncoming shift assessment. Patient denies any discomfort. change IVF to TKO. 20 lasix x 1 now. tomlinson catheter already in place. monitor I&O closely. Objective: Vital Signs Temp Pulse Resp BP Pulse Ox 36.9 C 104 H 30 H 166/77 H 99 12/26/17 23:05 12/27/17 05:00 12/27/17 05:00 12/27/17 00:40 12/27/17 05:00 Laboratory Results 12/26/17 06:28 12/26/17 12/27/17 12/28/17 05:59 05:59 05:59 Intake Total 550 Output Total 1350 1050 Balance -1350 -500 PT 16.8 SEC (12.0-15.0) H 12/14/17 13:50 INR 1.34 (0.83-1.16) H 12/14/17 13:50 ICD10 Worksheet Patient Problems: Problems Problem Status Onset Pneumonia Acute Closed left tibial fracture Acute
[2017-12-27] MEDS: ENOXAPARIN 40 MG/0.4 ML SYR SC SCH (08:11)
[2017-12-27] MEDS ORDERED: FUROSEMIDE 40 MG/4 ML VIAL IVP ONE (09:46)
[2017-12-27] MEDS: CALCIUM CARBONATE 500 MG CHEWABLE TAB PO SCH ×3 (11:29→22:11)
[2017-12-27] MEDS: FAMOTIDINE 20 MG TAB PO SCH ×2 (11:29→22:07)
[2017-12-27] MEDS: BENZTROPINE MESYLATE 1 MG TAB PO SCH ×2 (11:29→22:06)
[2017-12-27] MEDS: CHOLECALCIFEROL VIT D3 1,000 UNITS TAB PO SCH (11:29)
[2017-12-27] MEDS: SENNOSIDES 17.6 MG/10 ML UDL PO SCH ×2 (11:29→22:08)
[2017-12-27] MEDS: CEFEPIME HCL 2 GM in NS 100 ML IV SCH ×2 (12:00→18:43)
--- NOTE | 2017-12-27 12:05 | ASMTCMCOM ---
CM Note CM Note Notes: Dobhoff placed yesterday , will continue to monitor if pt swallowing ability improves. Plan remains return to [place] when medically stable. D/c plan of care: Return to [place] when medically stable. Date Signed: 12/27/2017 12:04 PM Electronically Signed By:NATALIE Hurt
[2017-12-27] MEDS ORDERED: CEFEPIME HCL 2 GM in NS 100 ML IV SCH (14:00)
[2017-12-27] MEDS: ACETAMINOPHEN 325 MG TAB PO PRN (16:33)
--- NOTE | 2017-12-27 17:27 | HOSPPROG ---
Hospitalist Progress Note Assessment/Plan: Subjective Follow-up on dysphagia. The patient showed increased respiratory effort over last evening. Dr. Zimmer did come to evaluate the patient. Patient's nurse did inform a this afternoon as well as she had low-grade temperature elevation. These developments came after I had held cefepime which she had been on for 10 days for aspiration pneumonia. The cefepime was resumed today. I reviewed this with pharmacy and asked him to resume her for discharge days. I did correspond with Dr. Snyder as well with interventional Radiology regarding the kinking of the Dobhoff tube and the patient was going to be assessed in interventional Radiology. The current plan regarding the Dobhoff tube is to see how she does in regards her swallowing ability in the coming days and if she is not progressing then consider a PEG tube placement disc. Discussions took place over the weekend with Dr. Salas and the patient's power of erisa attorney who is her sister whose name is Rhianna. Objective Vital signs as detailed below Physical exam General-patient appears stable as compared to days prior she will open her eyes and track with me but does not vocalize to significant drip degree. She will make some attempt at answer questions. Heart-regular rate and rhythm no murmurs noted Lungs respiratory effort appears normal but continued coarseness of upper airways. No significant wheezing is appreciated. Abdomen-soft nontender nondistended -Singh catheter in place with clear yellow urine Extremities-and no significant pitting edema appreciated Labs as detailed below Assessment plan Acute hypoxic respiratory failure-this is secondary to aspiration pneumonia. She was intubated from December 15 until December 21. I recommend that we continue with q.6 hours DuoNeb nebulizers. Her oxygen need has remained stable over the past days at 3 L nasal cannula. She does sound more course today so I have held her IV fluids and administered a dose of Lasix. Pneumonia-as of yesterday she had completed 10 days of cefepime. With her decline overnight and low-grade temperature elevations today I resume cefepime to continue for at least 4 more days. Encephalopathy-I suspect some element of delirium although there has been some interruption as well with his psychiatric medications due to lack of ability to feed her orally. We have resumed her normal outpatient psychiatric medications now we have the Dobhoff tube in place that is functioning appropriately. MRI of the brain was done over the weekend and read as normal. She had initial CT of her head early in the course of her hospitalization and this was also normal. Dysphagia-unfortunately no significant improvement in the past days. Some of the problem is her motivation to work with speech therapy plan is appreciate Dr. Salas consulting on the case. He he and I both had discussions with the patient power of erisa attorney me about the possibility of PEG tube placement in the current plan is to see how she does over the coming days with a Dobhoff tube and if she does not progress in a positive direction then consider PEG tube placement. Tube feeds have been started. Urine retention-continue Singh catheter placement. Schizophrenia-her outpatient regimen has been restarted. [id number] diagnosis. Continue with DuoNeb nebulizers. DVT prophylaxis-Lovenox Disposition-patient was previously residing at [facility] before coming into the hospital. Once medically stable likely could return. Objective: Vital Signs Temp Pulse Resp BP Pulse Ox 37.8 C 122 H 30 H 165/89 H 93 12/27/17 16:25 12/27/17 16:25 12/27/17 16:25 12/27/17 16:25 12/27/17 16:25 Laboratory Results 12/26/17 06:28 12/27/17 06:10 12/26/17 12/27/17 12/28/17 05:59 05:59 05:59 Intake Total 550 150 Output Total 1350 1050 1000 Balance -1350 -500 -850 PT 16.8 SEC (12.0-15.0) H 12/14/17 13:50 INR 1.34 (0.83-1.16) H 12/14/17 13:50 ICD10 Worksheet Patient Problems: Problems Problem Status Onset Pneumonia Acute Closed left tibial fracture Acute
[2017-12-27] MEDS ORDERED: MAGNESIUM CITRATE 300 ML BOTTLE PO PRN (17:33)
[2017-12-27] MEDS: POLYETHYLENE GLYCOL 3350 17 GM PKT PO SCH (17:57)
[2017-12-27] MEDS ORDERED: POTASSIUM Cl (KCl) 50 ML IV SCH (20:00)
[2017-12-27] MEDS: POTASSIUM Cl (KCl) 100 ML IV SCH ×2 (20:22→22:09)
[2017-12-27] MEDS: VALPROIC ACID 250 MG/5 ML UDCUP PO SCH (22:08)
[2017-12-28] MEDS: CEFEPIME HCL 2 GM in NS 100 ML IV SCH ×3 (02:18→19:46)
[2017-12-28] MEDS: IPRATROPIUM/ALBUTEROL 3 ML DEYVIAL IH SCH ×4 (04:20→23:21)
[2017-12-28 05:21] LABS: PLATELET COUNT 424 10^3/uL (150-400)
[2017-12-28] MEDS: POTASSIUM Cl (KCl) 50 ML IV SCH ×3 (08:37→11:30)
[2017-12-28] MEDS: CALCIUM CARBONATE 500 MG CHEWABLE TAB PO SCH ×2 (08:47→22:09)
[2017-12-28] MEDS: BENZTROPINE MESYLATE 1 MG TAB PO SCH ×2 (08:47→22:08)
[2017-12-28] MEDS: ACETAMINOPHEN 325 MG TAB PO PRN (08:48)
[2017-12-28] MEDS: FAMOTIDINE 20 MG TAB PO SCH ×2 (08:48→22:09)
[2017-12-28] MEDS: CHOLECALCIFEROL VIT D3 1,000 UNITS TAB PO SCH (08:50)
[2017-12-28] MEDS: ENOXAPARIN 40 MG/0.4 ML SYR SC SCH (08:50)
[2017-12-28] MEDS: POLYETHYLENE GLYCOL 3350 17 GM PKT PO SCH (08:50)
[2017-12-28] MEDS: SENNOSIDES 17.6 MG/10 ML UDL PO SCH ×2 (08:50→22:10)
--- NOTE | 2017-12-28 11:54 | HOSPPROG ---
Hospitalist Progress Note Assessment/Plan: DIAGNOSES: -New Tachycardia and recurrence of fever yesterday; diff dx most likely hypovolemia vs uncontrolled aspiration * more tachycardic today * hypernatremia and abscence of fever today so far may suggest hypovolemia -acute hypoxemic respiratory failure, requiring mechanical ventilation, now extubated on NC O2 * stable O2 need at present -acute halfway acquired pneumonia left lower lobe; suspect may also have pleural effusion on the left side -COPD exacerbation -metabolic encephalopathy, acute with significant decrease in alertness * remains stuporous with no change from yest -hyponatremia, no hypernatremia -severe deconditioning, gait instability, high fall risk -chronic schizophrenia PLANS: * Continue current antibiotics at this time; follow temps closely - if fever recurrs will need to redo infection assessment * ongoing discussions around feeding tube/feeding management * Avoid sedating medicines as possible * Continue her usual medicines for schizophrenia for now * Fall risk precautions, PT and OT as able (not very able at present) * DVT prophylaxis SUBJECTIVE: Patient remains quite lethargic, not really able to assess symptoms today OBJECTIVE Vitals reviewed: More tachycardic today, regular, with stable blood pressure, still tachypneic; no fever so far today remains on 3L O2 Exam: stuporous, nonconversant, extremely weak skin warm dry color ok resps somewhat labored lungs decreased breath sounds at left base heart regular abd soft nondistended nontender, bowel sounds present limbs warm, slight edema without pitting iv site ok Microbiology: Cultures are all remain negative so far other than ty in sputums Laboratory data: Na remains high 148 renal fxn ok, K good wbc elevated more now at 12+K Objective: Vital Signs Temp Pulse Resp BP Pulse Ox 37.4 C 120 H 22 H 171/63 H 96 12/28/17 07:57 12/28/17 07:57 12/28/17 07:57 12/28/17 07:57 12/28/17 07:57 Laboratory Results 12/28/17 05:00 12/28/17 05:00 12/27/17 12/28/17 12/29/17 06:59 06:59 06:59 Intake Total 550 1385 Output Total 1050 2650 Balance -500 -1265 PT 16.8 SEC (12.0-15.0) H 12/14/17 13:50 INR 1.34 (0.83-1.16) H 12/14/17 13:50 - Time Spent With Patient Time Spent with Patient: greater than 35 minutes Time Spent with Patient: Greater than 35 minutes spent on this patients care, greater than 50% of time spent counseling, educating, and coordinating care regarding the above mentioned plan. ICD10 Worksheet Patient Problems: Problems Problem Status Onset Pneumonia Acute Closed left tibial fracture Acute
--- NOTE | 2017-12-28 12:39 | SOAPPROG ---
SOAP Progress Note Assessment/Plan: Assessment: 1. Schizophrenia 2. Oropharyngeal dysphagia 3. Feeding difficulty Plan: 1. Dobhoff repositioned and now being used for 1st time overnight. Really the 1st time since extubation that she has been receiving meds and nutrition 2. Today she follows commands (will raise her hands and shake her head in response to some questions) and overall seems a bit more bright. Still a long way to go. 3. Pulmonary toilet 4. Try upright in chair 5. Continue nutrition and check gastric residuals to make sure they are not too high 6. If does not improve in a few days will ask IR to place a gastrostomy and j- tube (G-J tube) for feeding. This will be lower risk for her Will follow. Hopefully her cognitive status will improve and I feel then her oropharyngeal dysphagia might also. Subjective: CC: Ongoing problems with cognitive function. Somewhat improved. Answers by shaking head. Will swallow if asked and raises hands when requested. Very weak. Objective: Vital Signs Temp Pulse Resp BP Pulse Ox 37.3 C 108 H 24 H 151/65 H 94 12/28/17 12:00 12/28/17 12:00 12/28/17 12:00 12/28/17 12:00 12/28/17 12:00 Microbiology 12/16/17 13:50 Mycobacterial Smear (GUICHO) - Final Lung Bilateral - Tissue Laboratory Results 12/28/17 05:00 12/28/17 05:00 12/27/17 12/28/17 12/29/17 05:59 05:59 05:59 Intake Total 550 1385 Output Total 1050 2650 Balance -500 -1265 PT 16.8 SEC (12.0-15.0) H 12/14/17 13:50 INR 1.34 (0.83-1.16) H 12/14/17 13:50 Physical Exam - Physical Exam General Appearance: mild distress EENT: other (Dobhoff tube if left nostril) Respiratory: decreased breath sounds, rhonchi Cardiac/Chest: tachycardia Abdomen: non-tender, soft, No distended, No guarding, No rebound ICD10 Worksheet Patient Problems: Problems Problem Status Onset Pneumonia Acute Closed left tibial fracture Acute
[2017-12-28] MEDS: VALPROIC ACID 250 MG/5 ML UDCUP PO SCH (22:10)
[2017-12-29] MEDS: CEFEPIME HCL 2 GM in NS 100 ML IV SCH ×3 (03:36→20:07)
[2017-12-29] MEDS: ACETAMINOPHEN 325 MG TAB PO PRN (03:36)
[2017-12-29] MEDS: IPRATROPIUM/ALBUTEROL 3 ML DEYVIAL IH SCH ×4 (05:37→21:36)
[2017-12-29] MEDS: ENOXAPARIN 40 MG/0.4 ML SYR SC SCH (07:57)
[2017-12-29] MEDS: BENZTROPINE MESYLATE 1 MG TAB PO SCH ×2 (07:58→22:03)
[2017-12-29] MEDS: CHOLECALCIFEROL VIT D3 1,000 UNITS TAB PO SCH (07:58)
[2017-12-29] MEDS: CALCIUM CARBONATE 500 MG CHEWABLE TAB PO SCH ×2 (07:58→22:03)
[2017-12-29] MEDS: FAMOTIDINE 20 MG TAB PO SCH ×2 (07:58→22:03)
[2017-12-29] MEDS: POLYETHYLENE GLYCOL 3350 17 GM PKT PO SCH (08:00)
[2017-12-29] MEDS: SENNOSIDES 17.6 MG/10 ML UDL PO SCH ×2 (08:00→22:03)
--- NOTE | 2017-12-29 14:41 | SOAPPROG ---
SOAP Progress Note Assessment/Plan: Assessment: 1. Schizophrenia 2. Oropharyngeal dysphagia 3. Feeding difficulty Plan: 1. Cognitive improvement. Talking today. Up to chair. Asked for food. 2. Tolerating dobhoff feeding and medications 3. I would have her continue to work with PT/OT and speech for now. If not improved by early next week then can reconsider PEG placement. 4. Will sign off Call if fails to continue to improve clinically with the dobhoff and needs PEG. 12/29/17 14:38 Subjective: CC: hungry. Wants to eat. Follows commands and answers questions. Objective: Vital Signs Temp Pulse Resp BP Pulse Ox 36.4 C 103 H 24 H 125/63 H 92 12/29/17 08:27 12/29/17 12:56 12/29/17 12:56 12/29/17 12:56 12/29/17 12:56 Microbiology 12/16/17 13:50 Mycobacterial Smear (GUICHO) - Final Lung Bilateral - Tissue Laboratory Results 12/28/17 05:00 12/29/17 05:45 12/28/17 12/29/17 12/30/17 05:59 05:59 05:59 Intake Total 1385 2740 150 Output Total 2650 500 Balance -1265 2240 150 PT 16.8 SEC (12.0-15.0) H 12/14/17 13:50 INR 1.34 (0.83-1.16) H 12/14/17 13:50 Physical Exam - Physical Exam General Appearance: mild distress EENT: other (Dobhoff tube in place. Thick oral secretions. ) Respiratory: rhonchi Abdomen: normal bowel sounds, non-tender, soft ICD10 Worksheet Patient Problems: Problems Problem Status Onset Pneumonia Acute Closed left tibial fracture Acute
--- NOTE | 2017-12-29 16:23 | HOSPPROG ---
Hospitalist Progress Note Assessment/Plan: DIAGNOSES: -dehydration with sinus tachycardia, hypernatremia, poor skin turgor, and decreased mentation * Somewhat better today after some hydration but still appears dehydrated and still symptomatic with high sodium and faster heart rates than normal -acute hypoxemic respiratory failure, requiring mechanical ventilation, now extubated on NC O2 * COPD, jail acquired pneumonia, may also have aspiration, certainly has severe dysphagia * stable O2 need at present -acute jail acquired pneumonia left lower lobe; suspect may also have pleural effusion on the left side -COPD exacerbation -metabolic encephalopathy, acute with significant decrease in alertness * Some improvement from yesterday with hydration but not back to her baseline -hyponatremia, now hypernatremia which is likely due to hypovolemia -dysphagia, no safe ability to swallow at this time but is very upsetting to the patient * Currently receiving full requirements by NG tube -severe deconditioning, gait instability, high fall risk -chronic schizophrenia I reviewed in detail today with Dr. Don Salas PLANS: * Continue current antibiotics at this time follow for any recurrent fevers, none past 24 hr * Appreciate Dr. Salas sees help, will continue to assess her swallowing abilities strength etc, continue tube feeds for now via NG * Continue IV hydration, follow her strength mental status and sodium levels and pulse rate * Avoid sedating medicines as possible * Continue her usual medicines for schizophrenia for now * Fall risk precautions, PT and OT as able (not very able at present) * DVT prophylaxis The patient today is very upset that she is not allowed to eat. I have tried discussed with her in detail at length the risks of swallowing with aspiration and recurrent pneumonia worsening respiratory failure and that she would not tolerate that well at all. At this point she is able to a interact await conversation but I do not think she really understands this issue in a helpful way. SUBJECTIVE: Patient now able to converse but words are difficult understand She denies any pain or shortness of breath or nausea Upset that we are not giving her food OBJECTIVE Vitals reviewed: Pulse still a bit tachycardic but notably better than yesterday, respirations remain tachypneic and mildly labored, blood pressures stable no fever remains on 3L O2 Exam: Notably more alert and interactive today, remains extremely weak, voice is very weak in words hard to understand but she is able to converse with me; still diffuse generalized weakness throughout symmetrically skin warm dry color ok resps remains somewhat labored lungs decreased breath sounds at left base unchanged today from yesterday heart regular abd soft nondistended nontender, bowel sounds present limbs warm, decreased skin turgor today, no pitting edema iv site ok Microbiology: Cultures are all remain negative so far other than ty in sputums Laboratory data: Na remains high 148 unchanged from yesterday Objective: Vital Signs Temp Pulse Resp BP Pulse Ox 36.4 C 103 H 24 H 125/63 H 92 12/29/17 08:27 12/29/17 12:56 12/29/17 12:56 12/29/17 12:56 12/29/17 12:56 Microbiology 12/16/17 13:50 Mycobacterial Smear (GUICHO) - Final Lung Bilateral - Tissue Laboratory Results 12/28/17 05:00 12/29/17 05:45 12/28/17 12/29/17 12/30/17 06:59 06:59 06:59 Intake Total 1385 2740 150 Output Total 2650 500 Balance -1265 2240 150 PT 16.8 SEC (12.0-15.0) H 12/14/17 13:50 INR 1.34 (0.83-1.16) H 12/14/17 13:50 - Time Spent With Patient Time Spent with Patient: greater than 35 minutes Time Spent with Patient: Greater than 35 minutes spent on this patients care, greater than 50% of time spent counseling, educating, and coordinating care regarding the above mentioned plan. ICD10 Worksheet Patient Problems: Problems Problem Status Onset Pneumonia Acute Closed left tibial fracture Acute
[2017-12-29] MEDS: VALPROIC ACID 250 MG/5 ML UDCUP PO SCH (22:03)
[2017-12-30] MEDS: CEFEPIME HCL 2 GM in NS 100 ML IV SCH ×3 (03:13→18:53)
[2017-12-30] MEDS ORDERED: ALTEPLASE 2 MG VIAL IVP ONE (04:46)
[2017-12-30] MEDS: IPRATROPIUM/ALBUTEROL 3 ML DEYVIAL IH SCH ×4 (05:36→23:40)
[2017-12-30] MEDS: ACETAMINOPHEN 325 MG TAB PO PRN (07:37)
[2017-12-30] MEDS: BENZTROPINE MESYLATE 1 MG TAB PO SCH (07:39)
[2017-12-30] MEDS: CHOLECALCIFEROL VIT D3 1,000 UNITS TAB PO SCH (07:39)
[2017-12-30] MEDS: POLYETHYLENE GLYCOL 3350 17 GM PKT PO SCH (07:40)
[2017-12-30] MEDS: ENOXAPARIN 40 MG/0.4 ML SYR SC SCH (07:40)
[2017-12-30] MEDS: FAMOTIDINE 20 MG TAB PO SCH (07:40)
[2017-12-30] MEDS: SENNOSIDES 17.6 MG/10 ML UDL PO SCH (07:40)
[2017-12-30] MEDS: CALCIUM CARBONATE 500 MG CHEWABLE TAB PO SCH (07:41)
--- NOTE | 2017-12-30 13:42 | HOSPPROG ---
Hospitalist Progress Note Assessment/Plan: DIAGNOSES: -dehydration with sinus tachycardia, hypernatremia, poor skin turgor, and decreased mentation * Continues to improve with better pulse and sodium and alertness -acute hypoxemic respiratory failure, requiring mechanical ventilation, now extubated on NC O2 * COPD, group home acquired pneumonia, may also have aspiration, certainly has severe dysphagia * stable O2 need at present on nasal cannula -acute group home acquired pneumonia left lower lobe; suspect may also have pleural effusion on the left side -COPD exacerbation -metabolic encephalopathy, acute with significant decrease in alertness * Continues some improvement, probably not at baseline but it is not entirely clear to me what her baseline is -hyponatremia, now hypernatremia which is likely due to hypovolemia -dysphagia, no safe ability to swallow at this time but is very upsetting to the patient * Currently receiving full requirements by NG tube * I reviewed Dr. Salas note from yesterday. I have met with the patient at the bedside with the speech language pathologist today. What is seen is a complete absence of activity of swallowing related muscle activity on examination with UNHAIRING INSPECTOR. The patient has been now receiving tube feedings since December 15 so more than 2 weeks. The UNHAIRING INSPECTOR's earliest estimate of when the patient could return to swallowing sufficient food and fluid to sustain would be no less than 4 weeks, but it was mentioned that it is possible the patient may never regain the ability to swallow safely again. It does not seem 10 tubal that we would be continuing NG feedings here as she will not be able tolerate the nasogastric tube. I will discuss further gastroenterology -severe deconditioning, gait instability, high fall risk * This patient is bed-bound and really not able to perform any significant activities, not really able to move around in the bed on her own. It is hoped that now that she is getting better nutrition she may be able over time to make some progress but the patient has been hospitalized now since December 10 with no real signs of significant improvement from her presentation -chronic schizophrenia PLANS: * Continue current antibiotics at this time follow for any recurrent fevers, none past 24 hr * Will review feeding status and swelling status with Dr. Salas in light of the findings from S healthy * Continue IV hydration, follow her strength mental status and sodium levels and pulse rate * Avoid sedating medicines as possible * Continue her usual medicines for schizophrenia for now * Fall risk precautions, PT and OT as able (not very able at present) * DVT prophylaxis SUBJECTIVE: Patient denies any pain, remains extremely weak Still unhappy in about not being able to eat OBJECTIVE Vitals reviewed: Pulse is now in normal range, blood pressures remained good respirations good, no fevers remains on 3L O2 Exam: Again alert today and more interactive. Remains with severe diffuse symmetric weakness of all muscle groups. Voice is very weak and her speech is very hard here. She has resorted to answering yes and no questions by raising or lower in her hand. skin warm dry color ok resps a bit less labored lungs decreased breath sounds at left base unchanged today from yesterday, with some rhonchi in upper airways heart regular abd soft nondistended nontender, bowel sounds present limbs warm, skin turgor little bit better, no pitting edema iv site ok Microbiology: Cultures are all remain negative so far other than ty in sputums Laboratory data: Na down today at 145 Objective: Vital Signs Temp Pulse Resp BP Pulse Ox 36.4 C 97 20 126/75 H 93 12/30/17 12:25 12/30/17 12:25 12/30/17 12:25 12/30/17 12:25 12/30/17 12:25 Laboratory Results 12/28/17 05:00 12/30/17 04:35 12/29/17 12/30/17 12/31/17 06:59 06:59 06:59 Intake Total 2740 9750 160 Output Total 500 850 Balance 2240 8900 160 PT 16.8 SEC (12.0-15.0) H 12/14/17 13:50 INR 1.34 (0.83-1.16) H 12/14/17 13:50 - Time Spent With Patient Time Spent with Patient: greater than 35 minutes Time Spent with Patient: Greater than 35 minutes spent on this patients care, greater than 50% of time spent counseling, educating, and coordinating care regarding the above mentioned plan. ICD10 Worksheet Patient Problems: Problems Problem Status Onset Pneumonia Acute Closed left tibial fracture Acute
--- NOTE | 2017-12-30 14:01 | ASMTCMCOM ---
CM Note CM Note Notes: Updates sent to [facility]. Pt still receiving tube feeds, is now communicating but with weak voice and hard to hear speech. Pt weak and able to sit in chair with Christine Steady. Plan remains return to SNF when medically stable. D/c plan of care: Return to [facility] Date Signed: 12/30/2017 02:01 PM Electronically Signed By:NATALIE Hurt
[2017-12-30] MEDS: NS 1,000 ML IV SCH (15:19)
[2017-12-30] MEDS ORDERED: MAGNESIUM CITRATE 300 ML BOTTLE TUBE PRN (17:30)
--- NOTE | 2017-12-30 18:50 | HOSPPROG ---
Hospitalist Progress Note Assessment/Plan: DIAGNOSES: -acute sepsis resolved -dehydration with sinus tachycardia, hypernatremia, poor skin turgor, and decreased mentation * Continues to improve with better pulse and sodium and alertness -acute hypoxemic respiratory failure, requiring mechanical ventilation, now extubated on NC O2 * COPD, long term acquired pneumonia, may also have aspiration, certainly has severe dysphagia * stable O2 need at present on nasal cannula -acute long term acquired pneumonia left lower lobe; suspect may also have pleural effusion on the left side -COPD exacerbation -metabolic encephalopathy, acute with significant decrease in alertness * Continues some improvement, probably not at baseline but it is not entirely clear to me what her baseline is -hyponatremia, now hypernatremia which is likely due to hypovolemia -dysphagia, no safe ability to swallow at this time but is very upsetting to the patient * Currently receiving full requirements by NG tube * I reviewed Dr. Salas note from yesterday. I have met with the patient at the bedside with the speech language pathologist today. What is seen is a complete absence of activity of swallowing related muscle activity on examination with BIOMECHANICAL ENGINEER. The patient has been now receiving tube feedings since December 15 so more than 2 weeks. The BIOMECHANICAL ENGINEER's earliest estimate of when the patient could return to swallowing sufficient food and fluid to sustain would be no less than 4 weeks, but it was mentioned that it is possible the patient may never regain the ability to swallow safely again. It does not seem 10 tubal that we would be continuing NG feedings here as she will not be able tolerate the nasogastric tube. I will discuss further gastroenterology -severe deconditioning, gait instability, high fall risk * This patient is bed-bound and really not able to perform any significant activities, not really able to move around in the bed on her own. It is hoped that now that she is getting better nutrition she may be able over time to make some progress but the patient has been hospitalized now since December 10 with no real signs of significant improvement from her presentation -chronic schizophrenia PLANS: * Continue current antibiotics at this time follow for any recurrent fevers, none past 24 hr * Will review feeding status and swelling status with Dr. Salas in light of the findings from S healthy * Continue IV hydration, follow her strength mental status and sodium levels and pulse rate * Avoid sedating medicines as possible * Continue her usual medicines for schizophrenia for now * Fall risk precautions, PT and OT as able (not very able at present) * DVT prophylaxis SUBJECTIVE: Patient denies any pain, remains extremely weak Still unhappy in about not being able to eat OBJECTIVE Vitals reviewed: Pulse is now in normal range, blood pressures remained good respirations good, no fevers remains on 3L O2 Exam: Again alert today and more interactive. Remains with severe diffuse symmetric weakness of all muscle groups. Voice is very weak and her speech is very hard here. She has resorted to answering yes and no questions by raising or lower in her hand. skin warm dry color ok resps a bit less labored lungs decreased breath sounds at left base unchanged today from yesterday, with some rhonchi in upper airways heart regular abd soft nondistended nontender, bowel sounds present limbs warm, skin turgor little bit better, no pitting edema iv site ok Microbiology: Cultures are all remain negative so far other than ty in sputums Laboratory data: Na down today at 145 Objective: Vital Signs Temp Pulse Resp BP Pulse Ox 36.6 C 92 18 139/70 H 92 12/30/17 15:57 12/30/17 15:57 12/30/17 15:57 12/30/17 15:57 12/30/17 15:57 Laboratory Results 12/28/17 05:00 12/30/17 04:35 12/29/17 12/30/17 12/31/17 06:59 06:59 06:59 Intake Total 2740 9750 160 Output Total 500 850 300 Balance 2240 8900 -140 PT 16.8 SEC (12.0-15.0) H 12/14/17 13:50 INR 1.34 (0.83-1.16) H 12/14/17 13:50 - Time Spent With Patient Time Spent with Patient: greater than 35 minutes Time Spent with Patient: Greater than 35 minutes spent on this patients care, greater than 50% of time spent counseling, educating, and coordinating care regarding the above mentioned plan. ICD10 Worksheet Patient Problems: Problems Problem Status Onset Pneumonia Acute Closed left tibial fracture Acute
[2017-12-30] MEDS: BENZTROPINE MESYLATE 1 MG TAB TUBE SCH (22:10)
[2017-12-30] MEDS: SENNOSIDES 17.6 MG/10 ML UDL TUBE SCH (22:15)
[2017-12-30] MEDS: CALCIUM CARB TUBE SCH (22:16)
[2017-12-30] MEDS: VALPROIC ACID 250 MG/5 ML UDCUP TUBE SCH (22:16)
[2017-12-30] MEDS: FAMOTIDINE 20 MG TAB TUBE SCH (22:17)
[2017-12-31] MEDS: CEFEPIME HCL 2 GM in NS 100 ML IV SCH (04:05)
[2017-12-31] MEDS: CALCIUM CARB TUBE SCH ×2 (08:54→21:32)
[2017-12-31] MEDS: BENZTROPINE MESYLATE 1 MG TAB TUBE SCH ×2 (08:54→21:33)
[2017-12-31] MEDS: CHOLECALCIFEROL VIT D3 1,000 UNITS TAB PO SCH (08:55)
[2017-12-31] MEDS: ENOXAPARIN 40 MG/0.4 ML SYR SC SCH (08:55)
[2017-12-31] MEDS: FAMOTIDINE 20 MG TAB TUBE SCH ×2 (08:55→21:33)
[2017-12-31] MEDS: SENNOSIDES 17.6 MG/10 ML UDL TUBE SCH ×2 (09:28→22:21)
[2017-12-31] MEDS: POLYETHYLENE GLYCOL 3350 17 GM PKT TUBE SCH (09:28)
[2017-12-31] MEDS: NS 1,000 ML IV SCH (12:20)
--- NOTE | 2017-12-31 19:03 | HOSPPROG ---
Hospitalist Progress Note Assessment/Plan: DIAGNOSES: -acute sepsis resolved -dehydration with sinus tachycardia, hypernatremia, poor skin turgor, and decreased mentation * Continues to improve with better pulse and sodium and alertness -acute hypoxemic respiratory failure, requiring mechanical ventilation, now extubated on NC O2 * COPD, snf acquired pneumonia, may also have aspiration, certainly has severe dysphagia * stable O2 need at present on nasal cannula -acute snf acquired pneumonia left lower lobe; suspect may also have pleural effusion on the left side -COPD exacerbation -metabolic encephalopathy, acute with significant decrease in alertness * Continues some improvement, probably not at baseline but it is not entirely clear to me what her baseline is -hyponatremia, now hypernatremia which is likely due to hypovolemia -dysphagia, no safe ability to swallow at this time but is very upsetting to the patient * Currently receiving full requirements by NG tube * I reviewed Dr. Salas note from yesterday. I have met with the patient at the bedside with the speech language pathologist today. What is seen is a complete absence of activity of swallowing related muscle activity on examination with BULB INSPECTOR. The patient has been now receiving tube feedings since December 15 so more than 2 weeks. The BULB INSPECTOR's earliest estimate of when the patient could return to swallowing sufficient food and fluid to sustain would be no less than 4 weeks, but it was mentioned that it is possible the patient may never regain the ability to swallow safely again. It does not seem 10 tubal that we would be continuing NG feedings here as she will not be able tolerate the nasogastric tube. I will discuss further gastroenterology -severe deconditioning, gait instability, high fall risk * This patient is bed-bound and really not able to perform any significant activities, not really able to move around in the bed on her own. It is hoped that now that she is getting better nutrition she may be able over time to make some progress but the patient has been hospitalized now since December 10 with no real signs of significant improvement from her presentation -chronic schizophrenia I reviewed with Dr. Don Salas in detail today regarding her swallowing issues and is agreed that she is not likely to return to safe oral swallowing to be able to sustain herself at any time in the near future. Percutaneous antral feeding is clearly indicated. Because of her overall condition Dr. Salas is recommending that we request interventional Radiology to place the tube if they are able to find a window to do this. At this point I reviewed with the patient that her swallowing muscles are basically not functioning at all and that we do not expect any kind of recovery near future. At this point it appropriate to look to a percutaneous feeding tube and we will try and arrange for that there will probably have to wait until after the weekend. She is agreeing to this after our discussion and I had answered many questions for her regarding this in our discussion. PLANS: * Continue current antibiotics at this time follow for any recurrent fevers, none past 24 hr * Will review feeding status and swelling status with Dr. Salas in light of the findings from [facility] * Continue IV hydration, follow her strength mental status and sodium levels and pulse rate * Avoid sedating medicines as possible * Continue her usual medicines for schizophrenia for now * Fall risk precautions, PT and OT as able (not very able at present) * DVT prophylaxis SUBJECTIVE: Remains extremely weak but otherwise not uncomfortable. Tolerating tube feeds well, not short of breath OBJECTIVE Vitals reviewed: Pulse remains in normal range, blood pressures remained good respirations good, no fevers remains on 3L O2 Exam: Again alert today again his stream we diffusely weak, voice hypophonic skin warm dry color ok resps a bit less labored lungs decreased breath sounds at left base still with some scattered rhonchi heart regular abd soft nondistended nontender, bowel sounds present limbs warm, skin turgor little bit better, no pitting edema iv site ok Microbiology: Cultures are all remain negative so far other than ty in sputums Objective: Vital Signs Temp Pulse Resp BP Pulse Ox 36.4 C 79 20 132/78 H 97 12/31/17 16:00 12/31/17 16:00 12/31/17 16:00 12/31/17 16:00 12/31/17 16:00 Laboratory Results 12/28/17 05:00 12/30/17 04:35 12/30/17 12/31/17 01/01/18 06:59 06:59 06:59 Intake Total 9750 1595 1790 Output Total 850 750 425 Balance 8900 845 1365 PT 16.8 SEC (12.0-15.0) H 12/14/17 13:50 INR 1.34 (0.83-1.16) H 12/14/17 13:50 - Time Spent With Patient Time Spent with Patient: greater than 35 minutes Time Spent with Patient: Greater than 35 minutes spent on this patients care, greater than 50% of time spent counseling, educating, and coordinating care regarding the above mentioned plan. ICD10 Worksheet Patient Problems: Problems Problem Status Onset Pneumonia Acute Closed left tibial fracture Acute
[2017-12-31] MEDS: VALPROIC ACID 250 MG/5 ML UDCUP TUBE SCH (21:31)
[2017-12-31] MEDS: ACETAMINOPHEN 325 MG TAB TUBE PRN (22:43)
[2018-01-01] MEDS: BENZTROPINE MESYLATE 1 MG TAB TUBE SCH ×2 (07:47→23:03)
[2018-01-01] MEDS: CHOLECALCIFEROL VIT D3 1,000 UNITS TAB PO SCH (07:47)
[2018-01-01] MEDS: ENOXAPARIN 40 MG/0.4 ML SYR SC SCH (07:47)
[2018-01-01] MEDS: FAMOTIDINE 20 MG TAB TUBE SCH (07:47)
[2018-01-01] MEDS: NS 1,000 ML IV SCH (07:47)
[2018-01-01] MEDS: CALCIUM CARB TUBE SCH ×2 (07:48→23:02)
[2018-01-01] MEDS: SENNOSIDES 17.6 MG/10 ML UDL TUBE SCH ×2 (09:01→23:04)
[2018-01-01] MEDS: POLYETHYLENE GLYCOL 3350 17 GM PKT TUBE SCH (09:01)
[2018-01-01] MEDS: ACETAMINOPHEN 325 MG TAB TUBE PRN (10:05)
--- NOTE | 2018-01-01 15:23 | ASMTCMCOM ---
CM Note CM Note Notes: Pt declined PT/OT yesterday. D/c plan remains return to [facility]. Date Signed: 01/01/2018 03:23 PM Electronically Signed By:NATALIE Hurt
[2018-01-01] MEDS: IPRATROPIUM/ALBUTEROL 3 ML DEYVIAL IH PRN (15:45)
--- NOTE | 2018-01-01 16:21 | HOSPPROG ---
Hospitalist Progress Note Assessment/Plan: DIAGNOSES: -acute sepsis resolved -dehydration with sinus tachycardia, hypernatremia, poor skin turgor, and decreased mentation * Continues to improve with better pulse and sodium and alertness -acute hypoxemic respiratory failure, requiring mechanical ventilation, now extubated on NC O2 * COPD, group home acquired pneumonia, may also have aspiration, certainly has severe dysphagia * stable O2 need at present on nasal cannula -acute group home acquired pneumonia left lower lobe; suspect may also have pleural effusion on the left side -COPD exacerbation -metabolic encephalopathy, acute with significant decrease in alertness * Continues some improvement, probably not at baseline but it is not entirely clear to me what her baseline is -hyponatremia, now hypernatremia which is likely due to hypovolemia -dysphagia, no safe ability to swallow at this time but is very upsetting to the patient * Currently receiving full requirements by NG tube * I reviewed Dr. Salas note from yesterday. I have met with the patient at the bedside with the speech language pathologist today. What is seen is a complete absence of activity of swallowing related muscle activity on examination with STATE HISTORICAL SOCIETY DIRECTOR. The patient has been now receiving tube feedings since December 15 so more than 2 weeks. The STATE HISTORICAL SOCIETY DIRECTOR's earliest estimate of when the patient could return to swallowing sufficient food and fluid to sustain would be no less than 4 weeks, but it was mentioned that it is possible the patient may never regain the ability to swallow safely again. It does not seem 10 tubal that we would be continuing NG feedings here as she will not be able tolerate the nasogastric tube. I will discuss further gastroenterology -extreme weakness, suspicion for ICU acquired weakness; severe deconditioning bed-bound * This patient is bed-bound and really not able to perform any significant activities, not really able to move around in the bed on her own. It is hoped that now that she is getting better nutrition she may be able over time to make some progress but the patient has been hospitalized now since December 10 with no real signs of significant improvement from her presentation -chronic schizophrenia PLANS: * Continue current antibiotics at this time follow for any recurrent fevers, none past 24 hr * Plan on percutaneous feeding tube, hopefully on Wednesday * At present can stop IV hydration follow her hydration status on her current tube feeding and water flushes * Will recheck sodium potassium and renal function tomorrow * Avoid sedating medicines * Continue her usual medicines for schizophrenia for now * Fall risk precautions, PT and OT as able (not very able at present) * DVT prophylaxis SUBJECTIVE: No change in symptoms today, remains extremely weak OBJECTIVE Vitals reviewed: Pulse remains in normal range, blood pressures remained good respirations good, no fevers remains on I actually intermittently doing well off of oxygen now Exam: Again alert today, remains extremely diffusely weak, voice a bit stronger today skin warm dry color ok resps a bit less labored lungs decreased breath sounds at left base still with some scattered rhonchi heart regular abd soft nondistended nontender, bowel sounds present limbs warm, skin turgor little bit better, no pitting edema iv site ok Microbiology: Cultures are all remain negative so far other than ty in sputums Objective: Vital Signs Temp Pulse Resp BP Pulse Ox 36.5 C 101 H 18 161/82 H 93 01/01/18 07:27 01/01/18 15:47 01/01/18 15:47 01/01/18 15:21 01/01/18 15:47 Laboratory Results 12/28/17 05:00 12/30/17 04:35 12/31/17 01/01/18 01/02/18 06:59 06:59 06:59 Intake Total 1595 3709 Output Total 750 1875 1600 Balance 845 1834 -1600 PT 16.8 SEC (12.0-15.0) H 12/14/17 13:50 INR 1.34 (0.83-1.16) H 12/14/17 13:50 ICD10 Worksheet Patient Problems: Problems Problem Status Onset Pneumonia Acute Closed left tibial fracture Acute
[2018-01-01] MEDS: VALPROIC ACID 250 MG/5 ML UDCUP TUBE SCH (23:03)
[2018-01-02 05:08] LABS: PLATELET COUNT 247 10^3/uL (150-400)
[2018-01-02] MEDS: ENOXAPARIN 40 MG/0.4 ML SYR SC SCH (09:50)
[2018-01-02] MEDS: BENZTROPINE MESYLATE 1 MG TAB TUBE SCH ×2 (09:51→20:19)
[2018-01-02] MEDS: CHOLECALCIFEROL VIT D3 1,000 UNITS TAB PO SCH (09:51)
[2018-01-02] MEDS: CALCIUM CARB TUBE SCH ×2 (09:55→20:19)
[2018-01-02] MEDS: POLYETHYLENE GLYCOL 3350 17 GM PKT TUBE SCH (09:59)
[2018-01-02] MEDS: SENNOSIDES 17.6 MG/10 ML UDL TUBE SCH ×2 (10:00→20:18)
[2018-01-02] MEDS: IPRATROPIUM/ALBUTEROL 3 ML DEYVIAL IH PRN (10:18)
[2018-01-02] MEDS ORDERED: POTASSIUM CL 20 MEQ/15 ML UDCUP TUBE ONE (11:15)
--- NOTE | 2018-01-02 18:48 | PDIAF ---
- Diagnosis Code Status: Full Code - Medication Management Discharge Medications: Medications to Continue on Transfer Acetaminophen [Tylenol 325mg (*)] 650 mg PO Q8 PRN 12/10/17 [Last Taken Unknown] Alendronate Sodium [Fosamax 35 MG] 35 mg PO FR 12/10/17 [Last Taken 12/10/17] Benztropine Mesylate 1 mg PO BID 12/10/17 [Last Taken 12/10/17 07:00] Calcium Carbonate [Tums 500MG (*)] 500 mg PO BID 12/10/17 [Last Taken 12/10/17 07:00] Cholecalciferol Vit D3 [Vitamin D3 (*)] 1,000 units PO DAILY 12/10/17 [Last Taken 12/10/17] Divalproex [Depakote] 1,000 mg PO HS 12/10/17 [Last Taken 12/09/17] Docusate Sodium [Colace 100 MG (*)] 100 mg PO BID 12/10/17 [Last Taken 12/10/17 07:00] Fluticasone Hfa 110 Mcg [Flovent 110 MCG Hfa MDI (*)] 1 puffs IH BID 12/10/17 [ Last Taken 12/10/17 07:00] Ipratropium/Albuterol [Combivent Respimat Inhal [place](*)] 1 puffs IH QID [Last Taken 12/10/17 11:00] Levalbuterol Tartrate [Xopenex Hfa] 2 puffs IH Q4 12/10/17 [Last Taken 12/10/17 12:00] Polyethylene Glycol 3350 [Miralax 17 gm (*)] 17 gm PO Q2D 12/10/17 [Last Taken 12/09/17] QUEtiapine FUMARATE [Seroquel 200 mg (*)] 700 mg PO HS 12/10/17 [Last Taken 01/19] fluPHENAZine HCL [Prolixin 10 MG (*)] 30 mg PO HS 12/10/17 [Last Taken 12/09/17] rOPINIRole HCL [Requip 1mg (*)] 2 mg PO HS 12/10/17 [Last Taken 12/09/17] Discharge Medications: Refer to the Discharge Home Medication list for PRN reason. - Orders Diet Texture: Non Oral Meds - Follow Up Care Current Providers and Referrals: Patient,NotPresent [Unknown] - As per Instructions
--- NOTE | 2018-01-02 18:50 | HOSPPROG ---
Hospitalist Progress Note Assessment/Plan: DIAGNOSES: -acute sepsis resolved -dehydration with sinus tachycardia, hypernatremia, poor skin turgor, and decreased mentation * Continues to improve with better pulse and sodium and alertness -acute hypoxemic respiratory failure, requiring mechanical ventilation, now extubated on NC O2 * COPD, group home acquired pneumonia, may also have aspiration, certainly has severe dysphagia * stable O2 need at present on nasal cannula -acute group home acquired pneumonia left lower lobe; suspect may also have pleural effusion on the left side -COPD exacerbation -metabolic encephalopathy, acute with significant decrease in alertness * Continues some improvement, probably not at baseline but it is not entirely clear to me what her baseline is -hyponatremia, now hypernatremia which is likely due to hypovolemia -dysphagia, no safe ability to swallow at this time but is very upsetting to the patient * Currently receiving full requirements by NG tube * I reviewed Dr. Salas note from yesterday. I have met with the patient at the bedside with the speech language pathologist today. What is seen is a complete absence of activity of swallowing related muscle activity on examination with MEDICAL FACILITIES SECTION DIRECTOR. The patient has been now receiving tube feedings since December 15 so more than 2 weeks. The MEDICAL FACILITIES SECTION DIRECTOR's earliest estimate of when the patient could return to swallowing sufficient food and fluid to sustain would be no less than 4 weeks, but it was mentioned that it is possible the patient may never regain the ability to swallow safely again. It does not seem 10 tubal that we would be continuing NG feedings here as she will not be able tolerate the nasogastric tube. I will discuss further gastroenterology -extreme weakness, suspicion for ICU acquired weakness; severe deconditioning bed-bound * This patient is bed-bound and really not able to perform any significant activities, not really able to move around in the bed on her own. It is hoped that now that she is getting better nutrition she may be able over time to make some progress but the patient has been hospitalized now since December 10 with no real signs of significant improvement from her presentation -chronic schizophrenia PLANS: * Stop tube feeds tonight with hopes of getting a percutaneous feeding tube placed tomorrow * Replace potassium and recheck tomorrow * Avoid sedating medicines * Continue her usual medicines for schizophrenia for now * Fall risk precautions, PT and OT as able (not very able at present) * DVT prophylaxis * Once permanent feeding tube is secured can probably go back to [place] hopefully in the next couple of days The patient has some trepidation and anxiety related to placing of a permanent feeding tube. We had long discussion about the procedure, the benefits, the risks, the options which basically at this point test and turn up technician to be either continue with the nasogastric tube which will be able tolerate much longer, or night eating and drinking or getting recurrent aspiration which she probably would not survive given her degree of weakness. After long discussion and answering her questions the patient at this time is agreeing to proceeding. SUBJECTIVE: No change in symptoms today, remains extremely weak OBJECTIVE Vitals reviewed: Pulse remains in normal range, blood pressures remained good respirations good, no fevers remains on I actually intermittently doing well off of oxygen now Exam: Again alert today, remains extremely diffusely weak, voice a bit stronger today skin warm dry color ok resps a bit less labored lungs decreased breath sounds at left base still with some scattered rhonchi heart regular abd soft nondistended nontender, bowel sounds present limbs warm, skin turgor little bit better, no pitting edema iv site ok Laboratory data: Potassium low at 2.8, electrolytes and renal function otherwise fine WBC now normal at 7 Objective: Vital Signs Temp Pulse Resp BP Pulse Ox 36.6 C 82 16 133/74 H 90 L 01/02/18 17:59 01/02/18 17:59 01/02/18 17:59 01/02/18 17:59 01/02/18 17:59 Laboratory Results 01/02/18 04:45 01/02/18 04:45 01/01/18 01/02/18 01/03/18 06:59 06:59 06:59 Intake Total 3709 3981 1065 Output Total 1875 1750 Balance 1834 2231 1065 PT 16.8 SEC (12.0-15.0) H 12/14/17 13:50 INR 1.34 (0.83-1.16) H 12/14/17 13:50 - Time Spent With Patient Time Spent with Patient: greater than 35 minutes Time Spent with Patient: Greater than 35 minutes spent on this patients care, greater than 50% of time spent counseling, educating, and coordinating care regarding the above mentioned plan. ICD10 Worksheet Patient Problems: Problems Problem Status Onset Pneumonia Acute Closed left tibial fracture Acute
[2018-01-02] MEDS: VALPROIC ACID 250 MG/5 ML UDCUP TUBE SCH (20:18)
[2018-01-03] MEDS: ENOXAPARIN 40 MG/0.4 ML SYR SC SCH (07:47)
[2018-01-03] MEDS: IPRATROPIUM/ALBUTEROL 3 ML DEYVIAL IH PRN ×2 (09:28→15:52)
--- NOTE | 2018-01-03 09:40 | ASMTCMCOM ---
CM Note CM Note Notes: Chart reviewed. Patient likely to dc back to [facility] today if medically cleared for dc. Updated sent to [place]. CM to follow. Plan: return to [place]. Date Signed: 01/03/2018 09:39 AM Electronically Signed By:Joy Montero RN
[2018-01-03] MEDS: BENZTROPINE MESYLATE 1 MG TAB TUBE SCH ×2 (12:14→21:36)
[2018-01-03] MEDS: CHOLECALCIFEROL VIT D3 1,000 UNITS TAB PO SCH (12:15)
[2018-01-03] MEDS: SENNOSIDES 17.6 MG/10 ML UDL TUBE SCH ×2 (12:15→21:35)
[2018-01-03] MEDS: CALCIUM CARB TUBE SCH ×2 (12:15→21:35)
[2018-01-03] MEDS: POLYETHYLENE GLYCOL 3350 17 GM PKT TUBE SCH (12:15)
[2018-01-03] MEDS ORDERED: POTASSIUM CL 20 MEQ/15 ML UDCUP TUBE ONE (17:28)
--- NOTE | 2018-01-03 17:28 | HOSPPROG ---
Hospitalist Progress Note Assessment/Plan: DIAGNOSES: -acute sepsis resolved -dehydration with sinus tachycardia, hypernatremia, poor skin turgor, and decreased mentation * Continues to improve with better pulse and sodium and alertness -acute hypoxemic respiratory failure, requiring mechanical ventilation, now extubated on NC O2 * COPD, care home acquired pneumonia, may also have aspiration, certainly has severe dysphagia * stable O2 need at present on nasal cannula -acute care home acquired pneumonia left lower lobe; suspect may also have pleural effusion on the left side -COPD exacerbation -metabolic encephalopathy, acute with significant decrease in alertness * Continues some improvement, probably not at baseline but it is not entirely clear to me what her baseline is -hypokalemia * Only slightly improved after replacement yesterday -dysphagia, no safe ability to swallow at this time but is very upsetting to the patient * Currently receiving full requirements by NG tube * I reviewed Dr. Salas note from yesterday. I have met with the patient at the bedside with the speech language pathologist today. What is seen is a complete absence of activity of swallowing related muscle activity on examination with SIGNAL SYSTEM TESTING MAINTAINER. The patient has been now receiving tube feedings since December 15 so more than 2 weeks. The SIGNAL SYSTEM TESTING MAINTAINER's earliest estimate of when the patient could return to swallowing sufficient food and fluid to sustain would be no less than 4 weeks, but it was mentioned that it is possible the patient may never regain the ability to swallow safely again. It does not seem 10 tubal that we would be continuing NG feedings here as she will not be able tolerate the nasogastric tube. I will discuss further gastroenterology -extreme weakness, suspicion for ICU acquired weakness; severe deconditioning bed-bound * This patient is bed-bound and really not able to perform any significant activities, not really able to move around in the bed on her own. It is hoped that now that she is getting better nutrition she may be able over time to make some progress but the patient has been hospitalized now since December 10 with no real signs of significant improvement from her presentation -chronic schizophrenia PLANS: * Will are unable to get her percutaneous feeding tube in today but she will be on scheduled for tomorrow * Replace potassium and recheck tomorrow * Avoid sedating medicines * Continue her usual medicines for schizophrenia for now * Fall risk precautions, PT and OT as able (not very able at present) * DVT prophylaxis * Once permanent feeding tube is secured can probably go back to [place] either tomorrow or the next day SUBJECTIVE: Overall is reasonably comfortable but very disappointing concerned about her ongoing weakness and how that will plan over time OBJECTIVE Vitals reviewed: Vitals somewhat variable but overall in very good range now with no fevers Exam: Again alert today, remains extremely diffusely weak, voice a bit stronger today skin warm dry color ok resps a bit less labored lungs decreased breath sounds at left base still with some scattered rhonchi heart regular abd soft nondistended nontender, bowel sounds present limbs warm, skin turgor little bit better, no pitting edema iv site ok Laboratory data: Potassium still low at 2.9 Objective: Vital Signs Temp Pulse Resp BP Pulse Ox 36.5 C 98 18 153/78 H 93 01/03/18 15:17 01/03/18 15:50 01/03/18 15:50 01/03/18 15:17 01/03/18 15:50 Laboratory Results 01/02/18 04:45 01/03/18 04:47 01/02/18 01/03/18 01/04/18 06:59 06:59 06:59 Intake Total 3981 1065 Output Total 1750 1103 Balance 2231 -38 PT 16.8 SEC (12.0-15.0) H 12/14/17 13:50 INR 1.34 (0.83-1.16) H 12/14/17 13:50 ICD10 Worksheet Patient Problems: Problems Problem Status Onset Pneumonia Acute Closed left tibial fracture Acute
[2018-01-03] MEDS: VALPROIC ACID 250 MG/5 ML UDCUP TUBE SCH (21:35)
[2018-01-04] MEDS: CHOLECALCIFEROL VIT D3 1,000 UNITS TAB PO SCH (09:17)
[2018-01-04] MEDS: CALCIUM CARB TUBE SCH ×2 (09:17→21:21)
[2018-01-04] MEDS: POLYETHYLENE GLYCOL 3350 17 GM PKT TUBE SCH (09:18)
[2018-01-04] MEDS: SENNOSIDES 17.6 MG/10 ML UDL TUBE SCH ×2 (09:18→21:21)
[2018-01-04] MEDS ORDERED: PROTAMINE SULFATE 50 MG/5 ML VIAL IVP PRN (12:20)
[2018-01-04] MEDS ORDERED: ALTEPLASE 2 MG VIAL IVP PRN (12:20)
[2018-01-04] MEDS ORDERED: fentaNYL 100 MCG/2 ML INJ IVP PRN (12:20)
[2018-01-04] MEDS ORDERED: GLUCAGON HCL 1 MG VIAL IVP PRN (12:20)
[2018-01-04] MEDS ORDERED: MIDAZOLAM 2 MG/2 ML VIAL IVP PRN (12:20)
[2018-01-04] MEDS ORDERED: FLUMAZENIL 0.5 MG/5 ML MDV IVP PRN (12:20)
[2018-01-04] MEDS ORDERED: NALOXONE HCL 0.4 MG/ML INJ IVP PRN (12:20)
[2018-01-04] MEDS ORDERED: MEPERIDINE 25 MG/ML SYR IVP PRN (12:20)
[2018-01-04] MEDS ORDERED: HEPARIN 10,000 UNIT/10 ML MDV (1,000 UNIT/ML) IVP PRN (12:20)
[2018-01-04] MEDS ORDERED: ceFAZolin 2 GM/DEXTROSE 100 ML IV ONE (12:20)
[2018-01-04] MEDS ORDERED: NS 1,000 ML IV SCH (12:30)
[2018-01-04] MEDS ORDERED: NALOXONE HCL 0.4 MG/ML INJ ONE (13:23)
[2018-01-04] MEDS ORDERED: fentaNYL 100 MCG/2 ML INJ ONE (13:23)
[2018-01-04] MEDS ORDERED: MIDAZOLAM 2 MG/2 ML VIAL ONE (13:23)
[2018-01-04] MEDS ORDERED: FLUMAZENIL 0.5 MG/5 ML MDV IVP ONE (13:23)
[2018-01-04] MEDS ORDERED: GLUCAGON HCL 1 MG VIAL ONE (13:48)
[2018-01-04] MEDS ORDERED: IOPAMIDOL (ISOVUE-300) 100 ML BTL ONE (14:05)
[2018-01-04] MEDS ORDERED: LIDOCAINE 1% 300 MG/30 ML SDV ONE (14:05)
[2018-01-04] MEDS ORDERED: GLUCAGON HCL 1 MG VIAL IVP ONE (14:12)
--- NOTE | 2018-01-04 14:55 | PDRADPRE ---
Radiology History & Physical Indication for procedure: other (Aspiration) Home medications: Acetaminophen [Tylenol 325mg (*)] 650 mg PO Q8 PRN 12/10/17 [Last Taken Unknown] Alendronate Sodium [Fosamax 35 MG] 35 mg PO FR 12/10/17 [Last Taken 12/10/17] Benztropine Mesylate 1 mg PO BID 12/10/17 [Last Taken 12/10/17 07:00] Calcium Carbonate [Tums 500MG (*)] 500 mg PO BID 12/10/17 [Last Taken 12/10/17 07:00] Cholecalciferol Vit D3 [Vitamin D3 (*)] 1,000 units PO DAILY 12/10/17 [Last Taken 12/10/17] Divalproex [Depakote] 1,000 mg PO HS 12/10/17 [Last Taken 12/09/17] Docusate Sodium [Colace 100 MG (*)] 100 mg PO BID 12/10/17 [Last Taken 12/10/17 07:00] Fluticasone Hfa 110 Mcg [Flovent 110 MCG Hfa MDI (*)] 1 puffs IH BID 12/10/17 [ Last Taken 12/10/17 07:00] Ipratropium/Albuterol [Combivent Respimat Inhal [place](*)] 1 puffs IH QID [Last Taken 12/10/17 11:00] Levalbuterol Tartrate [Xopenex Hfa] 2 puffs IH Q4 12/10/17 [Last Taken 12/10/17 12:00] Polyethylene Glycol 3350 [Miralax 17 gm (*)] 17 gm PO Q2D 12/10/17 [Last Taken 12/09/17] QUEtiapine FUMARATE [Seroquel 200 mg (*)] 700 mg PO HS 12/10/17 [Last Taken 01/19] fluPHENAZine HCL [Prolixin 10 MG (*)] 30 mg PO HS 12/10/17 [Last Taken 12/09/17] rOPINIRole HCL [Requip 1mg (*)] 2 mg PO HS 12/10/17 [Last Taken 12/09/17] Allergies/Adverse Reactions: diphenhydramine HCl [From Benadryl] Allergy (Unknown, Verified 01/08/13 10:36) Penicillins Allergy (Verified 01/08/13 10:36) Mallampati Score: Class 2 (ASA 3)
--- NOTE | 2018-01-04 14:56 | PDRADPN ---
Radiology Procedure Note Date of Procedure: 01/04/18 Radiologist: Kari Aguirre Anesthesia: IV Sedation Pre-op Diagnosis: aspiration Post-op Diagnosis: same Procedure: gastrostomy tube placement Inf/Abcess present in the surg proc area at time of surgery?: No
--- NOTE | 2018-01-04 15:30 | ASMTCMCOM ---
CM Note CM Note Notes: Chart reviewed. Agreeable to peg tube today. She will likely be ready to discharge back to [facility] tomorrow. Plan: return to [facility]. Date Signed: 01/04/2018 03:29 PM Electronically Signed By:Joy Montero RN
--- NOTE | 2018-01-04 18:15 | HOSPPROG ---
Hospitalist Progress Note Assessment/Plan: DIAGNOSES: -acute sepsis resolved -dehydration with sinus tachycardia, hypernatremia, poor skin turgor, and decreased mentation * Continues to improve with better pulse and sodium and alertness -acute hypoxemic respiratory failure, requiring mechanical ventilation, now extubated on NC O2 * COPD, half-way acquired pneumonia, may also have aspiration, certainly has severe dysphagia * stable O2 need at present on nasal cannula -acute half-way acquired pneumonia left lower lobe; suspect may also have pleural effusion on the left side -COPD exacerbation -metabolic encephalopathy, acute with significant decrease in alertness * Seems to be back to her baseline at this time -hypokalemia * Today's repeat still pending after replacement yesterday -extreme weakness, suspicion for ICU acquired weakness (neuro muscular syndrome) ; severe deconditioning bed-bound * Note that the patient does have chronic significant disability and deconditioning that is potentially due to neuroleptic malignant sydrome which I have seen mentioned in prior charts but can not confirm * This patient is bed-bound and really not able to perform any significant activities, not really able to move around in the bed on her own. It is hoped that now that she is getting better nutrition she may be able over time to make some progress but the patient has been hospitalized now since December 10 with no real signs of significant improvement in this regard -dysphagia, no safe ability to swallow * After 2+ weeks of NG and OG tube feeding she now has percutaneous enteral tube in place today via Interventional Radiology * Should be able to presumably resume her feeds tomorrow * -chronic schizophrenia PLANS: * With new tube in place will need to use IV hydration overnight but hopefully can resume her tube feeds and water tomorrow * Recheck potassium (pending now) today and replace as necessary * Avoid sedating medicines * Continue her usual medicines for schizophrenia for now * Fall risk precautions, PT and OT as able (not very able at present) * DVT prophylaxis DISPO: ANTICIPATE SENDING HER BACK TO [facility] TOMORROW JANUARY 05 SUBJECTIVE: Comfortable now overall after having her new percutaneous gastric tube placement OBJECTIVE Vitals reviewed: Vitals somewhat variable but overall in very good range now with no fevers Exam: Again alert today, remains extremely diffusely weak, voice a bit stronger today skin warm dry color ok resps a bit less labored lungs decreased breath sounds at left base still with some scattered rhonchi heart regular abd soft nondistended nontender, bowel sounds present limbs warm, skin turgor little bit better, no pitting edema iv site ok Laboratory data: Potassium pending today at this time Objective: Vital Signs Temp Pulse Resp BP Pulse Ox 36.6 C 80 20 144/70 H 96 01/04/18 17:22 01/04/18 17:22 01/04/18 17:22 01/04/18 17:22 01/04/18 17:22 Microbiology 12/16/17 13:50 Mycobacterial Smear (GUICHO) - Final Lung Bilateral - Tissue Laboratory Results 01/02/18 04:45 01/03/18 04:47 01/03/18 01/04/18 01/05/18 06:59 06:59 06:59 Intake Total 1065 1000 Output Total 1103 5 Balance -38 995 PT 16.8 SEC (12.0-15.0) H 12/14/17 13:50 INR 1.34 (0.83-1.16) H 12/14/17 13:50 ICD10 Worksheet Patient Problems: Problems Problem Status Onset Pneumonia Acute Closed left tibial fracture Acute
[2018-01-04] MEDS ORDERED: ACETAMINOPHEN 650 MG SUPP PR PRN (20:50)
[2018-01-04] MEDS: BENZTROPINE MESYLATE 1 MG TAB TUBE SCH (21:20)
[2018-01-04] MEDS: VALPROIC ACID 250 MG/5 ML UDCUP TUBE SCH (21:22)
[2018-01-04] MEDS: POTASSIUM Cl (KCl) 10 MEQ in NS 100 ML IV SCH ×2 (21:32→21:33)
[2018-01-05] MEDS: BENZTROPINE MESYLATE 1 MG TAB TUBE SCH ×2 (11:21→20:18)
[2018-01-05] MEDS: CALCIUM CARB TUBE SCH ×2 (11:21→20:18)
[2018-01-05] MEDS: CHOLECALCIFEROL VIT D3 1,000 UNITS TAB PO SCH (11:21)
[2018-01-05] MEDS: SENNOSIDES 17.6 MG/10 ML UDL TUBE SCH ×2 (11:22→20:18)
[2018-01-05] MEDS: POLYETHYLENE GLYCOL 3350 17 GM PKT TUBE SCH (11:22)
--- NOTE | 2018-01-05 17:25 | HOSPPROG ---
Hospitalist Progress Note Assessment/Plan: -acute sepsis resolved -dehydration with sinus tachycardia, hypernatremia, poor skin turgor, and decreased mentation * Continues to improve -acute hypoxemic respiratory failure, requiring mechanical ventilation, now extubated on NC O2 * COPD, longterm acquired pneumonia, may also have aspiration, certainly has severe dysphagia * stable O2 need at present on nasal cannula -acute longterm acquired pneumonia left lower lobe; suspect may also have pleural effusion on the left side -COPD exacerbation -metabolic encephalopathy, acute with significant decrease in alertness * back at baseline per reports -hypokalemia, replace per protocol -extreme weakness, suspicion for ICU acquired weakness (neuro muscular syndrome) ; severe deconditioning bed-bound * Note that the patient does have chronic significant disability and deconditioning * This patient is bed-bound and really not able to perform any significant activities * PT/OT evaluations appreciated * -dysphagia, no safe ability to swallow * After 2+ weeks of NG and OG tube feeding she now has percutaneous enteral tube * start feeds OK per IR -chronic schizophrenia lives at [place], will return there -anemia, stable Objective: Vital Signs Temp Pulse Resp BP Pulse Ox 98 F 85 18 127/64 H 98 01/05/18 15:23 01/05/18 15:23 01/05/18 15:23 01/05/18 15:23 01/05/18 15:23 Microbiology 12/16/17 13:50 Mycobacterial Smear (GUICHO) - Final Lung Bilateral - Tissue Laboratory Results 01/02/18 04:45 01/04/18 18:38 01/04/18 01/05/18 01/06/18 11:59 11:59 11:59 Intake Total 1000 400 Output Total 1505 100 Balance -505 300 PT 16.8 SEC (12.0-15.0) H 12/14/17 13:50 INR 1.34 (0.83-1.16) H 12/14/17 13:50 - Time Spent With Patient Time Spent with Patient: greater than 35 minutes Time Spent with Patient: Greater than 35 minutes spent on this patients care, greater than 50% of time spent counseling, educating, and coordinating care regarding the above mentioned plan. - Pending Discharge Pending Discharge Within 48 Hours: Yes - Physical Exam Constitutional: no apparent distress Ears, Nose, Mouth, Throat: moist mucous membranes Cardiovascular: regular rate and rhythym Respiratory: no respiratory distress, reduced air movement, rhonchi, other ( very coarse throughout, + coughing, shallow breaths) Gastrointestinal: normoactive bowel sounds, soft, non-tender abdomen Psychiatric: not encephalopathic ICD10 Worksheet Patient Problems: Problems Problem Status Onset Closed left tibial fracture Acute Pneumonia Acute
[2018-01-05] MEDS: IPRATROPIUM/ALBUTEROL 3 ML DEYVIAL IH PRN (17:37)
[2018-01-05] MEDS: VALPROIC ACID 250 MG/5 ML UDCUP TUBE SCH (20:18)
[2018-01-05] MEDS: ACETAMINOPHEN 325 MG TAB TUBE PRN (20:18)
[2018-01-05] MEDS: FLUTICASONE HFA 110 MCG MDI IH SCH (22:19)
[2018-01-05] MEDS: IPRATROPIUM/ALBUTEROL 4GM MDI IH SCH (22:20)
[2018-01-06] MEDS: FLUTICASONE HFA 110 MCG MDI IH SCH (08:34)
[2018-01-06] MEDS: IPRATROPIUM/ALBUTEROL 4GM MDI IH SCH (08:34)
[2018-01-06] MEDS: SENNOSIDES 17.6 MG/10 ML UDL TUBE SCH (09:02)
[2018-01-06] MEDS: CALCIUM CARB TUBE SCH (09:02)
[2018-01-06] MEDS: BENZTROPINE MESYLATE 1 MG TAB TUBE SCH (09:02)
[2018-01-06] MEDS: CHOLECALCIFEROL VIT D3 1,000 UNITS TAB PO SCH (09:02)
[2018-01-06] MEDS: POLYETHYLENE GLYCOL 3350 17 GM PKT TUBE SCH (09:02)
[2018-01-06 11:15] VITALS: BP 139/79
[2018-01-06] MEDS ORDERED: POTASSIUM CL 20 MEQ/15 ML UDCUP PO ONE (11:30)
[2018-01-06] MEDS ORDERED: POTASSIUM CL 20 MEQ TAB TUBE SCH (13:45)
--- NOTE | 2018-01-06 14:47 | PDIAF ---
- Diagnosis Code Status: Full Code - Medication Management Discharge Medications: Medications to Continue on Transfer Benztropine Mesylate 1 mg PO BID 12/10/17 [Last Taken 12/10/17 07:00] Calcium Carbonate [Tums 500MG (*)] 500 mg PO BID 12/10/17 [Last Taken 12/10/17 07:00] Cholecalciferol Vit D3 [Vitamin D3 (*)] 1,000 units PO DAILY 12/10/17 [Last Taken 12/10/17] Docusate Sodium [Colace 100 MG (*)] 100 mg PO BID 12/10/17 [Last Taken 12/10/17 07:00] fluPHENAZine HCL [Prolixin 10 MG (*)] 30 mg PO HS 12/10/17 [Last Taken 12/09/17] Acetaminophen [Tylenol 325mg (*)] 650 mg TUBE Q4HRS PRN tab 01/06/18 [Last Taken Unknown] Acetaminophen [Tylenol Rectal] 650 mg WV Q4HRS PRN supp 01/06/18 [Last Taken Unknown] Fluticasone Hfa 110 Mcg [Flovent 110 MCG Hfa MDI (*)] 1 puffs IH BID mdi [Last Taken Unknown] Ipratropium/Albuterol [Combivent Respimat Inhal [place](*)] 1 inh IH BID mdi 11/19 [Last Taken Unknown] Polyethylene Glycol 3350 [Miralax 17 gm (*)] 17 gm TUBE DAILY pkt 01/06/18 [ Last Taken Unknown] Potassium Cl [Klor-Con 20 meq (*)] 20 meq TUBE DAILY tab 01/06/18 [Last Taken Unknown] rOPINIRole HCL [Requip 2mg (*)] 2 mg TUBE HS tab 01/06/18 [Last Taken Unknown] Discharge Medications: Refer to the Discharge Home Medication list for PRN reason. PICC Care - Routine: N/A - Orders Isolation Type: None Diet Recommendation: other (NPO) Diet Texture: Non Oral Meds Tube feeding: yes Singh: Not applicable Additional Instructions: per pt/ot eval at facility - Labs/Radiology Other Lab Name, Date and Time: potassium, magnesium 01/07/2018, call to PCP - Follow Up Care Current Providers and Referrals: Patient,NotPresent [Unknown] - As per Instructions
--- NOTE | 2018-01-06 16:01 | ASMTCMCOM ---
CM Note CM Note Notes: Spoke w/, pt can return to [facility] today. CM notified Jorge A at and they are prepared to take pt back. CM to set up stretcher transport. DC Plan: [facility] Date Signed: 01/06/2018 04:01 PM Electronically Signed By:Lori Pagan RN
--- NOTE | 2018-01-06 16:06 | ASMTDCNOTE ---
Case Management Discharge Discharge Order Complete? Answers: Yes Patient to Obtain Answers: Other Notes: [facility] Transportation Arranged Answers: [facility] Transport will Pick (Date 01/06/2018 05:00 PM & Time) Case Management Transport Answers: Yes Form Complete Faxed Final Orders Answers: Yes Agency/Facility Transfer Answers: Yes Report Printed & Faxed to Receiving Agency Discharge Comments Notes: D/marilia JOHANSEN, final orders faxed. Jorge A [facility]on notified, RN to call report. Date Signed: 01/06/2018 04:06 PM Electronically Signed By:Lori Pagan RN
--- NOTE | 2018-01-06 17:24 | ASDISCHSUM ---
Discharge Information Plan Status:Intermediate Return Medically Cleared to Leave: Discharge Date:01/06/2018 04:44 PM CM D/C Disposition:Half-Way Facility ADT D/C Disposition:Half-Way Facility Projected Discharge Date:01/06/2018 11:00 AM Transportation at D/C:ALS/BLS Discharge Delay Reason: Follow-Up Date:01/06/2018 11:00 AM Discharge Slot: Final Diagnosis:Acute resp fail, encephalopic, hyponatremia, COPD Placement Information Referral Type:*Intermediate/SNF Referral ID:[id number] Provider Name:Radha Magallon [facility] Address 1:[address] Address 2: City:[place] Selection Factors: State:[place] Patient Contact Information Contact Name:LISA Relationship:Mother Address:[address] [address] Work Phone: City:[place] Alternate Phone: State/Zip Code:[place] [address] Email: Financial Information Financial Class:Medicare Primary Plan Desc:MEDICARE INPATIENT Primary Plan Number:[id number] Secondary Plan Desc:MEDICA[place] Secondary Plan Number:[id number] Assessment Information [facility] CM Progress Note CM Note CM Note Notes: 12/11/2017 Case Management Note Pt admitted for treatment of pneumonia. RN requested visit with sister Rhianna Arrington to establish medical proxy. Per RN pt is not oriented and unable to make complex decisions at this time. Proxy Decision Maker Interested persons: Rhianna RodriguesMurphy Date: 12/11/2017 Time: 12:00 PM The interested persons collectively agreed that Rhianna Huertas knows the patient and is more likely to be informed of the patients wishes regarding treatment and should act as the patients healthcare proxy. Rhianna Huertas has been informed of her responsibilities as a healthcare proxy and has agreed to serve as the patients healthcare proxy. Rhianna Huertas can be contacted by phone at [phone]. Mother Marilee Rodrigues lives in [facility] in [place] [phone]. Left voicemail. Father Timmy Rodrigues lives in his home in [place] [phone]. Timmy in agreement with medical proxy choice. Sister Kimberlee Holloway lives in [place] at [phone]. Spoke with Kimberlee who is in agreement with proxy choice. Brother Pete Rodrigues lives in [place] [phone]. Left voicemail. All parties understand that proxy is in effect at [facility] only and that once pt is decisional again, proxy will not be in effect. Marcial Moctezuma pt resides at [facility]. Pt has had a diagnosis of schizophrenia for greater than 15 years. Faxed updates to [facility]. Case Management d/c poc: return to [facility] Case Management to follow. Date Signed: 12/11/2017 12:17 PM Electronically Signed By:Debbie Infante RN [facility] CM Progress Note CM Note CM Note Notes: Patient encephalopic, Hospitalist considering Psychiatrist consult. Will return to [facility] on discharge. Date Signed: 12/14/2017 09:47 AM Electronically Signed By:Yarelis Huerta LCSW [facility] Progress Note Notes Note: Notes: This is a late entry from [facility] from December 14, 2017. Please refer to [facility] note from 12/15 with latest [facility] updates. Due to [facility] downtime; there is not yet an order for the following psychiatric consultation. However, as of 12:45 Jory Russ MD has been notified of the consultation. Donte Ralph MD notified [facility] of consultation for Kristie Rodrigues (room# [id number]; ICU) at 09:35. Per Dr. Ralph, "the pt is a known behavioral health pt with a D/O of schizophrenia with extrapyramidal symptoms. Dr. Ralph is seeking medication assistance and any additional considerations from the psychiatric standpoint. The pt's medications are: seroquel 700 QHS, fluphenazine 30 HS, depakote 1000 HS, cogentin 1 2x daily, & ropinirole 2 HS. The pt is encephalopathic, persistently tachycardic, neuroleptic malignant, and obtundation." Date Signed: 12/17/2017 08:56 AM Electronically Signed By:Cierra Mansfield RN [facility] Progress Note Notes Note: Notes: [facility] consulted with Dr. Russ regarding Psych consult on patient. Dr. Russ was unable to assess patient because was not med cleared. Please contact [facility] we are available if needed for follow up. Date Signed: 12/16/2017 12:04 PM Electronically Signed By:Dayan Lyn [facility] CM Progress Note CM Note CM Note Notes: Patient has worsening respiratory failure with initiation of diuretics, requiring bronch, rendering her critically ill and at high risk for worsening morbidity/mortality. Patient remains unresponsive. CM will follow. Date Signed: 12/17/2017 02:31 PM Electronically Signed By:Teressa Wang LCSW [facility] CM Progress Note CM Note CM Note Notes: Pt remains intubated and sedated and receiving IV ABX treatment for PNA. She has a PICC and Singh. The d/c plan remains to return to [facility] when medically cleared. CM will continue to follow. Date Signed: 12/20/2017 04:18 PM Electronically Signed By:NATALIE Correa [facility] CM Progress Note CM Note CM Note Notes: Met with patient's sister, Rhianna who states she found the 8 wishes form for her sister. Rhianna is going to email the document to me so it can be placed in patient's chart. Rhianna states the document is about 10 years old but probably expresses her sister's wishes most accurately. Informed Rhianna about family meetings and what they are for. Rhianna says most of her questions are answered presently but she will want a family meeting when patient is closer to returning to [facility]. She was given contact information so she can call when she wants to set it up. CM will follow. Date Signed: 12/23/2017 11:44 AM Electronically Signed By:Teressa Wang LCSW [facility] CM Progress Note CM Note CM Note Notes: Palliative ordered yesterday. Today Merle with palliative team indicates there may not be a need for palliative meeting as she spoke with pt sister/proxy who indicates she is in favor of pursuing peg tube. Updates sent to [facility]. CM to follow. D/c plan remains return to [facility] when medically stable. Date Signed: 12/24/2017 04:59 PM Electronically Signed By:NATALIE Hurt [facility] HIOWT Progress Note CM Note CM Note Notes: Dobhoff placed yesterday , will continue to monitor if pt swallowing ability improves. Plan remains return to [facility] when medically stable. D/c plan of care: Return to [facility] when medically stable. Date Signed: 12/27/2017 12:04 PM Electronically Signed By:NATALIE Hurt [facility] HIWOT Progress Note CM Note CM Note Notes: Updates sent to [facility]. Pt still receiving tube feeds, is now communicating but with weak voice and hard to hear speech. Pt weak and able to sit in chair with Christine Steady. Plan remains return to [facility] when medically stable. D/c plan of care: Return to [facility] Date Signed: 12/30/2017 02:01 PM Electronically Signed By:NATALIE Hurt [facility] CM Progress Note CM Note CM Note Notes: Pt declined PT/OT yesterday. D/c plan remains return to [facility]. Date Signed: 01/01/2018 03:23 PM Electronically Signed By:NATALIE Hurt [facility] CM Progress Note CM Note CM Note Notes: Chart reviewed. Patient likely to dc back to [facility] today if medically cleared for dc. Updated sent to [facility]. CM to follow. Plan: return to [facility]. Date Signed: 01/03/2018 09:39 AM Electronically Signed By:Joy Montero RN [facility] CM Progress Note CM Note CM Note Notes: Chart reviewed. Agreeable to peg tube today. She will likely be ready to discharge back to [facility] tomorrow. Plan: return to [facility]. Date Signed: 01/04/2018 03:29 PM Electronically Signed By:Joy Montero RN [facility] CM Progress Note CM Note CM Note Notes: Cathy capellan/, pt can return to [facility] today. CM notified Jorge A at and they are prepared to take pt back. CM to set up stretcher transport. DC Plan: [facility] Date Signed: 01/06/2018 04:01 PM Electronically Signed By:Lori Pagan RN Case Management Discharge Plan Note Case Management Discharge Discharge Order Complete? Answers: Yes Patient to Obtain Answers: Other Notes: [facility] Transportation Arranged Answers: [facility] will Pick (Date 01/06/2018 05:00 PM & Time) Case Management Transport Answers: Yes Form Complete Faxed Final Orders Answers: Yes Agency/Facility Transfer Answers: Yes Report Printed & Faxed to Receiving Agency Discharge Comments Notes: Marija/marilia JOHANSEN, final orders faxed. Jorge A at notified, NEELAM to call report. Date Signed: 01/06/2018 04:06 PM Electronically Signed By:Lori Pagan RN Intervention Information Intervention Type:*IM-Signed Date of Service:01/06/2018 04:10 PM Patient Type:Inpatient Staff Member:Keely Schultz Hours: Discipline: Severity: Comment:
== END 2018-01-06 16:44 | DRG 870 ==
LOC: EDUNIT# → F3E 18:25 → F2N 12-11 09:48 → F3N 12-23 13:12 → F3E 01-02 17:24
PROVIDERS: ADMIT Internal Medicine; ATTEND Internal Medicine
DX: A41.9 Sepsis, unspecified organism (principal); J69.0 Pneumonitis due to inhalation of food and vomit; J96.01 Acute respiratory failure with hypoxia; G93.41 Metabolic encephalopathy; J44.1 Chronic obstructive pulmonary disease with (acute) exacerbation; J90 Pleural effusion, not elsewhere classified; E87.0 Hyperosmolality and hypernatremia; M62.81 Muscle weakness (generalized); E86.0 Dehydration; F20.9 Schizophrenia, unspecified; E86.1 Hypovolemia; E87.6 Hypokalemia; R13.12 Dysphagia, oropharyngeal phase; R33.9 Retention of urine, unspecified; Z88.0 Allergy status to penicillin; R00.0 Tachycardia, unspecified
CPT/HCPCS: 87449-90; 92526-GN; 92610-GN; 92611-GN; 97162-GP; 97164-GP; 97166-GO; 97530-GO; 97530-GP; 97535-GO; C1751; G8978-GP-CL; G8978-GP-CM; G8979-GP-CJ; G8979-GP-CK; G8987-GO-CM; G8988-GO-CK; G8988-GO-CL; G8996-GN-CJ; G8996-GN-CL; G8996-GN-CM; G8997-GN-CH; G8997-GN-CI; G8997-GN-CJ; J0360; J0456; J0690; J0692; J1610; J1650; J1940; J1956; J2060; J2250; J2310; J2704; J2930; J2997; J3010; J3370; J3475; J3480; J7512; Q9967